=== PATIENT | female | born 1965 | race Caucasian/White ===

== ENCOUNTER 2020-06-15 14:41 | Outpatient (CLI) | payer BC, SELFPAY ==
--- NOTE | ~2020-06-15 | MM_ITS ---
EXAMINATION: MM screening [facility] BI w mary HISTORY: Screening TECHNIQUE: Craniocaudal and mediolateral oblique 3-D tomosynthesis images were obtained and synthetic 2-D images were generated. CAD analysis was submitted and interpreted. COMPARISON: Comparison to multiple prior studies sequentially, with oldest reviewed study dated 09/2011. BREAST PARENCHYMAL COMPOSITION: There are scattered areas of fibroglandular density. FINDINGS: There is no evidence of suspicious mass, calcification, or architectural distortion to sugg est malignancy in either breast. There has been no suspicious interval change. IMPRESSION: 1. No mammographic evidence of malignancy. 2. Recommend routine screening mammography in one year. BI-RADS Category 1: Negative Reviewed, dictated and finalized at location A. NT SERVICE REPRESENTATIVE
== END 2020-06-15 14:42 | disposition home or self-care (01) ==
LOC: ANHIMG 14:47
PROVIDERS: PCP Internal Medicine; Visit Provider Obstetrics & Gynecology
DX: Z12.31 Encounter for screening mammogram for malignant neoplasm of breast (principal)
CPT/HCPCS: 77063; 77067

== ENCOUNTER 2021-12-28 14:00 | Outpatient (CLI) | payer BC, SELFPAY ==
--- NOTE | ~2021-12-28 | MM_ITS ---
EXAMINATION: MM screening [facility] BI w mary HISTORY: Screening mammogram TECHNIQUE: Craniocaudal and mediolateral oblique 3-D tomosynthesis images were obtained and synthetic 2-D images were generated. CAD analysis was submitted and interpreted. COMPARISON: 06/15/2020, 10/02/2018, 02/21/2017, 02/14/2017 BREAST PARENCHYMAL COMPOSITION: There are scattered areas of fibroglandular density. FINDINGS: There is no suspicious mass, calcification, or architectural distortion to suggest malignan cy in either breast. There has been no suspicious interval change. IMPRESSION: 1. No mammographic evidence of malignancy. 2. Recommend routine screening mammography in one year. BI-RADS Category 1: Negative Reviewed, dictated and finalized at location A.
== END 2021-12-28 14:01 | disposition home or self-care (01) ==
LOC: ANHIMG 14:03
PROVIDERS: PCP Family Medicine Sports Medicine; Visit Provider Obstetrics & Gynecology
DX: Z12.31 Encounter for screening mammogram for malignant neoplasm of breast (principal)
CPT/HCPCS: 77063; 77067

== ENCOUNTER 2022-04-24 15:42 | Outpatient (CLI) | payer BC, SELFPAY ==
--- NOTE | ~2022-04-24 | US_ITS ---
EXAMINATION: US venous doppler LE RT DATE: 04/24/2022 16:16 INDICATION: Right lower limb pain TECHNIQUE: Grayscale ultrasound images without and with compression and Doppler ultrasound images of the right lower extremity veins were obtained. COMPARISON: None. FINDINGS: The visualized portions of right common femoral vein, profunda (deep) femoral vein, femoral vein, pop liteal vein, peroneal trunk, posterior tibial veins, peroneal veins, gastrocnemius vein and greater s aphenous vein outflow are patent. IMPRESSION: 1. No deep venous thrombosis in the right lower limb. Reviewed, dictated and finalized at location A. UCT/DEVICE TECHNOLOGIST
== END 2022-04-24 15:43 | disposition home or self-care (01) ==
LOC: ANHIMG 15:43
PROVIDERS: PCP Family Medicine Sports Medicine; Visit Provider Orthopaedic Surgery
DX: M79.661 Pain in right lower leg (principal)
CPT/HCPCS: 93971

== ENCOUNTER 2022-10-16 04:08 | Emergency (ER) | payer BC, SELFPAY ==
--- NOTE | ~2022-10-16 | XR_ITS ---
EXAMINATION: XR lumbar spine 2-3V DATE: 10/16/2022 04:47 INDICATION: Sciatica. TECHNIQUE: 3 views of lumbar spine were obtained. COMPARISON: None. FINDINGS: There is 6 degrees levocurvature of lumbar spine. There is 3 mm anterolisthesis of L4 on L5 . Vertebral body heights are normal. There is mildly decreased disc height at L3-L4. There is multile spencer facet joint osteoarthritis, severe in lower lumbar spine. IMPRESSION: 1. Mild lumbar spondylosis. Reviewed, dictated and finalized at location A. IMPRESSION: 1. Mild lumbar spondylosis.
[2022-10-16 04:11] VITALS: BP 179/105; PULSE 83; RESP 14; O2SAT 96
--- NOTE | 2022-10-16 05:21 | ED.GENADULT ---
HPI - General Adult General Chief complaint: Extremity Problem,Nontraumatic Stated complaint: back and leg pain Time Seen by Provider: 10/16/22 04:22 History of Present Illness HPI narrative: Patient is a 57-year-old female who presents ER with low back pain. Ongoing for 4 days. Initially low back radiating down both legs. It is now just radiating down her right side. No numbness or tingling in the leg. No saddle anesthesia or difficulty with urination/defecation. Symptoms are worse with bending and walking. No known traumatic injury to the back. Denies fevers or chills or sweats. No focal weakness. Has tried some Aleve without improvement. Patient reports she is scheduled to have a knee replacement in the next month. She sees Dr. Moya. She reports due to her knee discomfort she has had slight change in her gait which may be affecting her comfort. Related Data Home Medications Medication Instructions Recorded Confirmed losartan 50 mg tablet 50 mg PO DAILY 04/24/22 08/06/22 Allergies Allergy/AdvReac Type Severity Reaction Status Date / Time azithromycin Allergy Intermediate Vomiting Verified 10/16/22 04:26 morphine Allergy Mild Hives Verified 10/16/22 04:26 hydrocodone [From Vicodin] AdvReac Intermediate Vomiting Verified 10/16/22 04:26 methylprednisolone AdvReac Intermediate Vomiting Verified 10/16/22 04:26 [From Medrol] oxycodone AdvReac Intermediate Vomiting Verified 10/16/22 04:26 tramadol AdvReac Intermediate Headache Verified 10/16/22 04:26 Review of Systems Review of Systems: All systems reviewed & are unremarkable except as noted in HPI and below Constitutional: Constitutional: Denies chills, Denies fatigue and Denies fever(s) Genitourinary: Genitourinary: Denies nocturia, Denies dysuria and Denies urinary incontinence Musculoskeletal: Musculoskeletal: Reports back pain, Denies myalgias, Denies arthralgias and Denies joint swelling Integumentary/Breasts: Skin/Breast: Denies erythema and Denies rash Neurologic: Denies headache(s), Denies focal weakness and Denies numbness PMFSH Past Medical History Medical History Chronic headaches Degenerative arthritis of knee, bilateral History of endometrial biopsy (11/12/01) hscope EMB--benign Hypertension Migraines Screening mammogram, encounter for Surgical History Surgical History History of foot surgery (~2014) right foot History of hand surgery finger History of knee surgery 07/05/2014 partial meniscectomy--arthroscopy 2016 History of laparoscopy multiple lscopes for endometriosis History of right knee surgery (~10/10/10) History of surgery on wrist (~2014) History of total abdominal hysterectomy and bilateral salpingo-oophorectomy (02/04/02) adhesiolysis--leiomyomata, endometriosis, bicornuate uterus Family History Family History Other Adopted person Social History Social History Smoking status: Never smoker Alcohol intake: never Substance use: never Substance use type: does not use Living arrangements: with family Additional living arrangements comments: Occupation/Education: occupation 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 HEAD: Normocephalic, atraumatic. ENT: Mucous membranes moist EXTREMITIES: Normal range of motion. No edema. Gross sensation intact in lower extremities. Back: No reproducible midline tenderness to T/L-spine. There is tenderness to the SI region bilaterally right greater than left. Positive straight leg raise on the right
[2022-10-16] MEDS: KETOROLAC (*BKC) 60 MG/2 ML VIAL IM (05:29)
[2022-10-16] MEDS: CYCLOBENZAPRINE HCL 10 MG TABLET PO (05:29)
[2022-10-16 06:32] VITALS: BP 156/94; PULSE 78; RESP 15; O2SAT 100
== END 2022-10-16 06:34 | disposition home or self-care (01) ==
PROVIDERS: Emergency Provider Emergency Medicine; PCP Family Medicine Sports Medicine
DX: M54.42 Lumbago with sciatica, left side (principal); M54.41 Lumbago with sciatica, right side; I10 Essential (primary) hypertension; M17.0 Bilateral primary osteoarthritis of knee; M47.816 Spondylosis without myelopathy or radiculopathy, lumbar region
CPT/HCPCS: 72100; 96372; 99283; A9270; J1885

== ENCOUNTER 2022-10-23 08:38 | Outpatient (CLI) | payer BC, SELFPAY ==
--- NOTE | 2022-10-23 09:34 | ECG_ITS ---
Measurements Intervals Frost Rate: 72 P: 57 AK: 164 QRS: 1 QRSD: 72 T: -7 QT: 355 QTc: 389 Interpretive Statements SINUS RHYTHM LOW QRS VOLTAGE IN PRECORDIAL LEADS [QRS DEFLECTION < 1.0 mV IN CHEST LEADS] POSSIBLE ANTERIOR MYOCARDIAL INFARCTION [30 ms Q WAVE IN V3/V4, OR R < 0.2 mV IN V4], OF INDETERMINATE AGE NONSPECIFIC ST AND T WAVE ABNORMALITIES ABNORMAL ECG WARNING: DATA QUALITY MAY AFFECT INTERPRETATION NO PREVIOUS ECG AVAILABLE FOR COMPARISON Electronically Signed On 10-23-2022 10:22:34 CDT by Reg Galan M.D.
[2022-10-23 10:43] LABS: Albumin Level 4.4 g/dL (3.5-5.1); Estimated Glomerular Filt Rate > 60; Glucose 87 mg/dL (65-110)
[2022-10-23 10:44] LABS: Basophils Absolute Auto 0.1 K/mm3 (0.0-0.1); Basophils Percent Auto 0.8 % (0.2-1.2); Eosinophils Absolute Auto 0.4 K/mm3 (0-0.3); Eosinophils Percent Auto 3.9 % (0-4.4); Hematocrit 43.1 % (37.0-47.0); Hemoglobin 13.9 g/dL (12.0-15.0); Immature Granulocyte Absolute 0.34 K/mm3 (0.00-0.031); Immature Granulocyte Percent A 3.8 % (0-0.5); Lymphocytes Absolute Auto 1.12 K/mm3 (0.9-3.2); Lymphocytes Percent Auto 12.6 % (18.3-44.2); Mean Corpuscular HGB Conc 32.3 g/dl (32-36); Mean Corpuscular Hemoglobin 30.8 pg (26-34); Mean Corpuscular Volume 95.4 fl (80-100); Mean Platelet Volume 9.8 fl (7.4-10.4); Monocytes Absolute Auto 0.8 K/mm3 (0.1-0.6); Monocytes Percent Auto 9.3 % (2.6-8.5); Neutrophils Absolute Auto 6.2 K/mm3 (1.3-6.7); Neutrophils Percent Auto 69.6 % (45.5-73.1); Platelet Count Result 333 k/mm3 (150-375); Red Blood Count 4.52 M/mm3 (4.2-5.4); Red Cell Distribution Width 13.1 % (11.5-14.5); White Blood Count 8.9 K/mm3 (4.5-10.0)
[2022-10-23 10:46] LABS: Urine Cotinine NEGATIVE
[2022-10-23 11:14] LABS: Hemoglobin A1C 5.6 % (<5.7)
== END 2022-10-23 08:39 | disposition home or self-care (01) ==
LOC: ANHSURGERY 08:43
PROVIDERS: PCP Family Medicine Sports Medicine; Visit Provider Orthopaedic Surgery
DX: Z01.818 Encounter for other preprocedural examination (principal); M17.11 Unilateral primary osteoarthritis, right knee; R94.31 Abnormal electrocardiogram [ECG] [EKG]
CPT/HCPCS: 80307; 82040; 82565; 82947; 83036; 85025; 87081; 93005

== ENCOUNTER 2022-10-24 15:16 | Outpatient (CLI) | payer BC, SELFPAY ==
--- NOTE | ~2022-10-24 | MR_ITS ---
EXAMINATION: MR lumbar spine wo con DATE: 10/24/2022 16:11 INDICATION: Dorsalgia, unspecified. TECHNIQUE: Magnetic resonance imaging (MRI) of the lumbar spine was performed without intravenous con trast. Sequences included sagittal T2-weighted FSE, sagittal T2-weighted FS FSE, sagittal T1-weighted FSE, and axial T2-weighted FSE. COMPARISON: Lumbar spine radiographs 10/16/2022 FINDINGS: There is 3 degrees levocurvature of lumbar spine. Vertebral body heights are normal. There is 3 mm anterolisthesis of L4 on L5. There is mildly decreased disc height at L3-L4 and L4-L5. The di stal spinal cord signal intensity is normal. The conus medullaris is at L1. The following disc levels are specifically discussed: L1-L2: The disc does not extend beyond the endplate margin. There is mild bilateral facet joint osteo arthritis. There is no neural foraminal stenosis. There is no central canal stenosis. L2-L3: The disc is bulging. There is severe bilateral facet joint osteoarthritis. There is mild bilat eral neural foraminal stenosis. There is mild central canal stenosis. L3-L4: The disc is bulging with superimposed right subarticular zone extrusion with superior extensio n 8 mm. There is severe bilateral facet joint osteoarthritis. There is moderate right and mild left n eural foraminal stenosis. There is mild central canal stenosis. L4-L5: The disc is bulging and has an annular fissure. There is severe bilateral facet joint osteoart hritis. There is mild right and moderate left neural foraminal stenosis. There is mild central canal stenosis. There is severe stenosis of left lateral recess. L5-S1: There is a left foraminal protrusion. There is severe bilateral facet joint osteoarthritis. Th ere is mild bilateral neural foraminal stenosis. There is no central canal stenosis. IMPRESSION: 1. Moderate lumbar spondylosis. Reviewed, dictated and finalized at location A.
== END 2022-10-24 15:17 ==
LOC: GOSHIMG 15:17
PROVIDERS: PCP Family Medicine Sports Medicine; Visit Provider Orthopaedic Surgery
DX: M47.896 Other spondylosis, lumbar region (principal)
CPT/HCPCS: 72148

== ENCOUNTER 2022-12-09 03:03 | Day surgery (SDC) | payer BC, SELFPAY ==
--- NOTE | 2022-10-23 07:34 | PC.NURSE ---
PRE-OP INSTRUCTIONS, PLEASE READ CAREFULLY Report to the Outpatient Waiting Room, entrance under the green pavilion located off [facility], at time _0600_ on date _11/11/22_. Planned Procedure Time: _0730_. PACK A SMALL OVERNIGHT BAG AND LEAVE IN THE CAR ALONG WITH YOUR WALKER Time changes happen often and if your time is changed the preop area will call you the afternoon before. - You and your visitor will be asked to self-screen and do not enter if you have any COVID symptoms. - A mask is optional within the hospital at this time. -VISITING HOURS 8AM-8PM Patients may have clear liquids (water, carbonated beverages, clear teas, apple juice) until 3 hours prior to surgery (0430 AM) with a maximum of 20 ounces. - No food from midnight until time of surgery Take the following medications with a SIP of water the morning of surgery: _TYLENOL &/OR CYCLOBENZAPRINE IF NEEDED_ DO NOT STOP ANY OF YOUR OTHER PRESCRIPTION MEDICATIONS PRIOR TO SURGERY ?EXCEPT THE FOLLOWING Medications to discontinue - _GOODY'S PER DR. GONSALES'S INSTRUCTIONS_, Date to take last dose Please no make-up, nail romanian, hairspray, perfume, deodorant, or body powder the day of surgery. No jewelry (including any body piercings) or valuables the day of surgery, leave them at home. Please take a shower or bath the night before, or the morning of, surgery with an antibacterial soap. Wear comfortable, loose fitting clothing. - Jewelry must be removed prior to entering the operating room. Rings and piercings that are not removed may be cut off. - The hospital will not accept responsibility for valuables. - Please leave all valuables, including medications, at home the day of surgery. If you are going home after surgery, a licensed straddle truck driver must drive you home. - NO public transportation without another adult if you receive anesthesia. - We recommend that an adult stay with you for 24 hours following discharge. - We also recommend that you do not drive, make important decision, drink alcoholic beverages, or take any drugs that were not prescribed by your health care provider for at least 24 hours after your discharge time. Follow any additional instructions given to you from DR. GONSALES. If you or anyone in your household have experienced Covid symptoms in the past week, please notify your surgeon or the nurse liaison at the phone number below for possible testing. Instructions given to _PATIENT & SPOUSE (MARI)_and asked if any additional questions and then verbalized understanding. Patient advised to call surgeon office or pre surgery nurse liaison [phone] if any additional questions.
[2022-10-23 09:02] VITALS: BP 124/78; PULSE 80; RESP 18; TEMP 36.6; O2SAT 100; BMI 31.9
[2022-11-27 14:39] VITALS: BMI 31.8
--- NOTE | 2022-11-27 14:47 | PC.NURSE ---
Report to the Outpatient Waiting Room, entrance under the green pavilion located off [facility], at time _0600_ on date _12/09/22__. Planned Procedure Time: ___729 . PACK A SMALL OVERNIGHT BAG AND LEAVE IN THE CAR ALONG WITH YOUR WALKER Time changes happen often and if your time is changed the preop area will call you the afternoon before. - You and your visitor will be asked to self-screen and do not enter if you have any COVID symptoms. - A mask is optional within the hospital at this time. Patients may have clear liquids (water, carbonated beverages, clear teas, apple juice) until 3 hours prior to surgery (0430 AM) with a maximum of 20 ounces. - No food from midnight until time of surgery - Infants may have breast milk until 4 hours before surgery, infant formula 6 hours prior to surgery. - Children will be allowed to drink immediately following surgery. If applicable, please bring a bottle or sippy cup to assist with drinking. Juice, water, soda, and popsicles are readily available. For infants on formula, please bring formula the day of surgery. Pacifiers are allowed. Take the following medications with a SIP of water the morning of surgery: _TYLENOL IF NEEDED_ DO NOT STOP ANY OF YOUR OTHER PRESCRIPTION MEDICATIONS PRIOR TO SURGERY ?EXCEPT THE FOLLOWING Medications to discontinue - _FLOYDY'S PER DR. GONSALES'S INSTRUCTIONS_, Date to take last dose Please no make-up, nail yoruba, hairspray, perfume, deodorant, or body powder the day of surgery. No jewelry (including any body piercings) or valuables the day of surgery, leave them at home. Please take a shower or bath the night before, or the morning of, surgery with an antibacterial soap. Wear comfortable, loose fitting clothing. Children are encouraged to wear pajamas. - Jewelry must be removed prior to entering the operating room. Rings and piercings that are not removed may be cut off. - The hospital will not accept responsibility for valuables. - Please leave all valuables, including medications, at home the day of surgery. If you are going home after surgery, a licensed feedmobile driver must drive you home. - NO public transportation without another adult if you receive anesthesia. - We recommend that an adult stay with you for 24 hours following discharge. - We also recommend that you do not drive, make important decision, drink alcoholic beverages, or take any drugs that were not prescribed by your health care provider for at least 24 hours after your discharge time. For Pediatric surgeries, we recommend two adults accompany the child home. Follow any additional instructions given to you from your surgeon. If you or anyone in your household have experienced Covid symptoms in the past week, please notify your surgeon or the nurse liaison at the phone number below for possible testing. Telephone instructions given to __PATIENT___and asked if any additional questions and then verbalized understanding. Patient advised to call surgeon office or pre surgery nurse liaison [phone] if any additional questions.
--- NOTE | 2022-12-06 18:36 | WPDANESEPP ---
Anes - Eval Pre Procedure Procedure: Operation Date: 12/09/22 07:30 Proposed Procedures p Right Total Knee Arthroplasty - Serge Moya MD Date/Time: 12/06/22 18:36 Pre Op Diagnosis: OA right knee Patient Data Age: 57 Gender: F Height: 1.57 m Weight: 79 kg Last Vital Signs Temp 36.6 C 10/23/22 09:02 Pulse 80 10/23/22 09:02 Resp 18 10/23/22 09:02 BP 124/78 10/23/22 09:02 Pulse Ox 100 10/23/22 09:02 O2 Del Method Room Air 10/23/22 09:02 Allergies Allergy/AdvReac Type Severity Reaction Status Date / Time azithromycin Allergy Intermediate Vomiting Verified 12/03/22 13:32 morphine Allergy Mild Hives Verified 12/03/22 13:32 hydrocodone [From Vicodin] AdvReac Intermediate Vomiting Verified 12/03/22 13:32 methylprednisolone AdvReac Intermediate Vomiting Verified 12/03/22 13:32 [From Medrol] oxycodone AdvReac Intermediate Vomiting Verified 12/03/22 13:32 tramadol AdvReac Intermediate Headache Verified 12/03/22 13:32 Home Medications Medication Instructions Recorded Confirmed Type losartan 50 mg tablet 50 mg PO DAILY 04/24/22 12/03/22 History MHA-vpmebcysqybck-cjmqnmau-potassium 1 packet DAILY PRN Migraine 10/23/22 12/03/22 History 520 mg-260 mg-32.5 mg oral packet Headache acetaminophen 650 mg 1,300 mg PO TID PRN Pain 10/23/22 12/03/22 History tablet,extended release rivaroxaban 10 mg tablet (Xarelto) 10 mg PO DAILY RI prophylaxis s/p 12/03/22 12/03/22 Rx joint replacement surgery 14 days #14 tabs Patient hx anesthesia problems: none Family hx anesthesia problems: none Results Review: All pre-operative results and documents have been reviewed as part of the pre-operative evaluation. [facility] Past Medical History Medical History (Updated 12/06/22 @ 18:37 by Khushboo Torrez CRNA) Back pain Chronic headaches Degenerative arthritis of knee, bilateral Endometriosis History of endometrial biopsy (11/12/01) hscope EMB--benign Hypertension Migraines Obesity (BMI 30-39.9) Osteoarthritis Screening mammogram, encounter for Surgical History Surgical History History of foot surgery (~2014) right foot History of hand surgery finger History of knee surgery 07/05/2014 partial meniscectomy--arthroscopy 2016 History of laparoscopy multiple lscopes for endometriosis History of right knee surgery (~10/10/10) History of surgery on wrist (~2014) History of total abdominal hysterectomy and bilateral salpingo-oophorectomy (02/04/02) adhesiolysis--leiomyomata, endometriosis, bicornuate uterus Family History Family History Other Adopted person Social History Social History Smoking status: Never smoker Second hand tobacco smoke exposure: No Additional smoking assessment comments: PT DENIES ALL FORMS OF TOBACCO USE Alcohol intake: never Substance use: never Substance use type: does not use Lack of Transportation: No Lack of Food: Never True Current Housing: I Have Housing Concerned About Future Housing: No Difficulty Paying Gas/Electric Bills: No Difficulty Paying for Meds: No Currently Unemployed: No Education: High School Diploma/GED Difficulty w/ Childcare or Family Care: No Living arrangements: with family Additional living arrangements comments: Occupation/Education: occupation 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
[2022-12-09] VITALS (18 sets, daily range): BP systolic 116–179; BP diastolic 70–99; PULSE 68–116; RESP 10–18; TEMP 36.2–36.9; O2SAT 91–100
--- NOTE | ~2022-12-09 | XR_ITS ---
EXAMINATION: [id number] DATE: 12/09/2022 10:26 CDT INDICATION: Right knee arthroplasty TECHNIQUE: 2 views right knee FINDINGS: There is a right total knee arthroplasty in expected position. Subcutaneous gas with fluid and air in the joint are consistent with recent surgery. No evidence of periprosthetic fracture. IMPRESSION: 1. Recent right total knee arthroplasty. Reviewed, dictated and finalized at location A.
[2022-12-09] MEDS: ACETAMINOPHEN 500 MG TABLET 1000 MG PO ×3 (06:25→17:36)
[2022-12-09] MEDS: LACTATED RINGERS 1,000 ML 30 ML IV CONT ×2 (06:30→09:56)
[2022-12-09] MEDS: TRANEXAMIC ACID 1,000MG/ISO100 1,000 MG/100 ML BAG 200 MG IVPB (06:35)
--- NOTE | 2022-12-09 07:21 | WPDANESEPPF ---
Anes - Initial Pre Proc Eval Procedure: Operation Date: 12/09/22 07:30 Proposed Procedures p Right Total Knee Arthroplasty - Serge Moya MD Date/Time: 12/09/22 07:21 Surgeon: Serge Moya MD Pre Op Diagnosis: OA right knee Patient Data Age: 57 Gender: F Height: 1.57 m Weight: 79.8 kg Last Vital Signs Temp 97.8 F 12/09/22 06:14 Pulse 83 12/09/22 06:14 Resp 18 12/09/22 06:14 BP 150/92 H 12/09/22 06:14 Pulse Ox 100 12/09/22 06:14 O2 Del Method Room Air 12/09/22 06:14 Allergies Allergy/AdvReac Type Severity Reaction Status Date / Time morphine Allergy Mild Hives Verified 12/09/22 06:42 azithromycin AdvReac Intermediate Vomiting Verified 12/09/22 07:20 hydrocodone [From Vicodin] AdvReac Intermediate Vomiting Verified 12/09/22 06:42 methylprednisolone AdvReac Intermediate Vomiting Verified 12/09/22 06:42 [From Medrol] oxycodone AdvReac Intermediate Vomiting Verified 12/09/22 06:42 tramadol AdvReac Intermediate Headache Verified 12/09/22 06:42 Home Medications Medication Instructions Recorded Confirmed Type losartan 50 mg tablet 50 mg PO DAILY 04/24/22 12/09/22 History NEV-yekzijilqqjbn-sutzjgat-potassium 1 packet DAILY PRN Migraine 10/23/22 12/09/22 History 520 mg-260 mg-32.5 mg oral packet Headache acetaminophen 650 mg 1,300 mg PO TID PRN Pain 10/23/22 12/03/22 History tablet,extended release rivaroxaban 10 mg tablet (Xarelto) 10 mg PO DAILY MT prophylaxis s/p 12/03/22 12/03/22 Rx joint replacement surgery 14 days #14 tabs Patient hx anesthesia problems: none Family hx anesthesia problems: none Results Review: All pre-operative results and documents have been reviewed as part of the pre-operative evaluation. [facility] Past Medical History Medical History (Updated 12/06/22 @ 18:37 by Khushboo Torrez CRNA) Back pain Chronic headaches Degenerative arthritis of knee, bilateral Endometriosis History of endometrial biopsy (11/12/01) hscope EMB--benign Hypertension Migraines Obesity (BMI 30-39.9) Osteoarthritis Screening mammogram, encounter for Surgical History Surgical History History of foot surgery (~2014) right foot History of hand surgery finger History of knee surgery 07/05/2014 partial meniscectomy--arthroscopy 2016 History of laparoscopy multiple lscopes for endometriosis History of right knee surgery (~10/10/10) History of surgery on wrist (~2014) History of total abdominal hysterectomy and bilateral salpingo-oophorectomy (02/04/02) adhesiolysis--leiomyomata, endometriosis, bicornuate uterus Family History Family History Other Adopted person Social History Social History Smoking status: Never smoker Second hand tobacco smoke exposure: No Additional smoking assessment comments: PT DENIES ALL FORMS OF TOBACCO USE Alcohol intake: never Substance use: never Substance use type: does not use Lack of Transportation: No Lack of Food: Never True Current Housing: I Have Housing Concerned About Future Housing: No Difficulty Paying Gas/Electric Bills: No Difficulty Paying for Meds: No Currently Unemployed: No Education: High School Diploma/GED Difficulty w/ Childcare or Family Care: No Living arrangements: with family Additional living arrangements comments: Occupation/Education: occupation 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
--- NOTE | 2022-12-09 07:26 | WPDHPUPDATE1 ---
History and Physical Update Update Date/Time: 12/09/22 07:26 History and Physical has been reviewed, including an updated exam of the patient. There are NO changes in the patient's condition. Risks, benefits, and alternatives have been discussed and questions answered. Patient agrees to proceed with procedure.
[2022-12-09] MEDS: ceFAZolin 2 GM/D5W 50 ML 2 GM/50 ML BAG IVPB ×2 (07:34→15:17)
[2022-12-09] MEDS: SCOPOLAMINE 1.5 MG PATCH TRANSDERM (09:56)
--- NOTE | 2022-12-09 09:58 | W.PM.PROC2 ---
Procedure Note - Detailed Date of Procedure 12/09/22 Pre-op Diagnosis OA right knee Post-op Diagnosis Same Procedure Performed right total knee replacement Surgeon Serge Moya MD [employer] Resource Specialist Frantz Rendon Anesthesia General Description of Procedure The patient was identified and proper site identified. After general anesthetic induction and intubation a nonsterile tourniquet was placed high on the right thigh. The right lower extremity was prepped and draped in the usual sterile fashion. The extremity was exsanguinated and with the knee flexed tourniquet was inflated to 300 mmHg remaining up for approximately 61 minutes. An anterior midline incision was made and a modified medial parapatellar approach was used. Infra and suprapatellar fat pads were excised. Patella was resected leaving 15 mm thickness and prepared for the size 29 round three peg component. Using the intramedullary guide the distal femur was cut in the proper orientation for the size six femoral component. Using the extramedullary guide the tibia was cut perpendicular to the long axis protecting collateral ligaments and popliteal structures. It was sized to a six. Flexion and extension gaps were balanced. Trial reduction was undertaken and the weight-bearing line was noted to passed through the center of the joint. Proximal tibia was drilled and punched in the proper orientation for the real component. Trial components were removed. The bone surfaces were washed with pulsatile lavage and dried. The real components were cemented simultaneously. The knee was held in extension and the patella held clamped until the cement had cured. Excess cement was removed from the joint. After trialing it was determined that the 12 mm insert gave full range of motion from 0-120 degrees of flexion and the patella tracked in the femoral groove with no lift-off. After final lavage the joint the real size 12 insert was placed and secured. A Betadine and saline wash was placed into the wound and allowed to sit for approximately 3 minutes and then evacuated. Periarticular tissues were infiltrated with 60 cc of the arthroplasty solution. Surgicel powder was applied into the wound during the closure. The extensor mechanism was repaired with #2 Vicryl suture and 0 looped PDS suture. Subcu was reapproximated with 3-0 Monocryl and 2-0 Quill for the skin. A sterile dressing was applied. She tolerated the procedure well, was awakened and extubated, transferred to the bed and was taken to recovery area in stable condition. There were no known intraoperative complications. Perioperative antibiotics were administered. Estimated Blood Loss 100 Tourniquet Time 61 Drains No Pathology None sent Complications No immediate complications Condition Stable Disposition PACU [facility] Billing Surgery - Charge Forward: Surgery Billing ([id number])
[2022-12-09] MEDS: fentaNYL CITRATE INJ (*CRX) 100 MCG/2 ML VIAL 25 MCG IV PUSH ×8 (10:14→11:33)
--- NOTE | 2022-12-09 10:26 | WPDANESPNB ---
Anes - Peripheral Nerve Block Date/Time: 12/09/22 10:26 I have discussed with the patient/family/POA the placement of a peripheral nerve block for post-operative pain management, including associated risks, benefits, complications, and side effects. Alternative methods of post-operative analgesia were detailed. Questions were solicited and answers provided to the satisfaction of the patient/family/POA. Time-Out: A pre-procedural Time-Out was completed immediately before starting the procedure and confirmed: Patient Identification, Site, Procedure, Patient Position and the Availability of Requisite Equipment. Clinical Indications: Acute post-operative pain management requested by the operative surgeon. Nerve Block Insertion Note Patient position: supine Skin prep: chlorhexidine Needle: 22 gauge, stimulating, insulated echogenic needle. Technique comment: done post op in recovery Injectate: bupivacaine 0.5% with epi 5 mcg/ml (30ml no epi) and dexamethasone (mg) (4) Observations: tolerated well Complications: none Procedure start time:: 1014 Procedure end time:: 1020
--- NOTE | 2022-12-09 12:00 | ADMGEN ---
This patient, Jessica Dwyer, was admitted to 3 [facility] Surg Room 327-01. Patient/family oriented to hospital policies and general routines including ID bracelet, bed and alarms, visiting hours, pain management, procedures, bathroom and other care routines, personal items, smoking policy, room service/diet, and visiting hours. Information on how to activate the Rapid Response Team has been discussed. Patient/Family are encouraged to report perceived risks to care and to ask questions if they do not understand what they are told or what they should do.
[2022-12-09] MEDS: KETOROLAC 15 MG/ML VIAL (*BKC) IV PUSH ×2 (12:26→17:34)
[2022-12-09] MEDS: TAPENTADOL HCL (*CRX) 50 MG TABLET PO ×3 (12:45→21:06)
--- NOTE | 2022-12-09 15:11 | PCPTNOTE ---
On 12/09/22, the student, MIKE Garcia, provided care and completed [facility] documentation on this patient. I have reviewed the student's documentation and agree with the findings.
[2022-12-09] MEDS: SENNA/DOCUSATE SODIUM TABLET 2 TAB PO (17:36)
[2022-12-10 00:16] VITALS: BP 144/81; PULSE 77; RESP 14; TEMP 36.7; O2SAT 97
[2022-12-10] MEDS: ceFAZolin 2 GM/D5W 50 ML 2 GM/50 ML BAG IVPB ×2 (00:17→06:21)
[2022-12-10] MEDS: ACETAMINOPHEN 500 MG TABLET 1000 MG PO ×2 (00:17→05:45)
[2022-12-10] MEDS: KETOROLAC 15 MG/ML VIAL (*BKC) IV PUSH ×2 (00:17→05:45)
[2022-12-10 05:25] VITALS: BP 115/67; PULSE 71; RESP 16; TEMP 36.2; O2SAT 98
[2022-12-10] MEDS: TAPENTADOL HCL (*CRX) 50 MG TABLET PO ×2 (05:44→08:34)
[2022-12-10] MEDS: polyethylene glycoL 3350 17 GM POWD.PACK PO (08:33)
[2022-12-10] MEDS: SENNA/DOCUSATE SODIUM TABLET 2 TAB PO (08:33)
[2022-12-10] MEDS: RIVAROXABAN 10 MG TABLET PO (08:34)
--- NOTE | 2022-12-10 08:36 | WPDANESPN ---
Anes - Prog Note Post-Op Date/Time: 12/10/22 08:36 Cardiovascular status: normal Respiratory status: normal Airway patency: baseline Mental status: baseline Post-Op hydration status: normal Vital Signs: Last Vital Signs Temp 36.2 C L 12/10/22 05:25 Pulse 71 12/10/22 05:25 Resp 16 12/10/22 05:25 BP 115/67 12/10/22 05:25 Pulse Ox 98 12/10/22 05:25 O2 Del Method Room Air 12/09/22 20:00 O2 Flow Rate 2 12/09/22 11:50 Pain Score (VAS): 0 I/O: Intake & Output 12/09/22 12/10/22 12/10/22 23:59 07:59 15:59 Intake Total 730 100 Balance 730 100 12/09/22 06:24 Blood Type O Positive Antibody Screen Negative Post-procedural complaints: none Patient Feedback: Patient satisfied with anesthetic care.
--- NOTE | 2022-12-10 09:07 | PM.DS ---
DS: Admitting Diagnosis Discharge Date 12/10/2022 Admitting Diagnosis Right knee osteoarthritis DS: Discharge Diagnosis Discharge Diagnosis (1) Status post total right knee replacement: Code(s): Z96.651 - Presence of right artificial knee joint Status: Acute Plan 57-year-old female postop day 1 after right total knee arthroplasty. Discharge instructions and wound care were discussed with her in detail. Range of motion during exam this morning is reasonable with recent surgical procedure. Will plan to use Nucynta for pain medication due to her allergies to previous pain meds. Surgical dressing is clean and dry this morning. She had no further questions. Plan follow-up in 2 weeks for wound and range of motion check. She is to call our office any further questions or concerns prior to that scheduled follow-up. DS: Summary Hospital Course Reason for hospitalization: Observation after outpatient procedure Hospital Course: 57-year-old female admitted for observation after right total knee arthroplasty. Overall doing well during exam this morning. She did have an issue yesterday evening in which she forgot the date and time and thought she had missed her surgery. This could be a reaction to the anesthesia or her pain medication. She does have allergies to previous pain medications so we will continue to try Nucynta while she is at home. She will plan for follow-up in our office in 2 weeks for recheck. Status at Discharge Functional status at discharge: uses cane/walker Overall status at discharge: patient is progressing back to baseline Time Spent with Patient Time attestation: Total time spent providing and/or coordinating discharge services: Time spent: Less than 30 minutes Exam Const: General: cooperative, healthy appearing, no acute distress and average body habitus Nutritional Appearance: average body habitus Orientation/consciousness: patient oriented x3 Limitations: no limitations HENMT: Head: normocephalic and atraumatic Ears: hearing grossly normal bilaterally Mouth: Yes moist mucous membranes Teeth and gingiva: fair dentition Eyes: General: appearance normal, both eyes and all related structures Alignment and Position: alignment normal Pupils: Equal, round and reactive pupils present Neck: Neck: normal visual inspection Chest: Chest palpation & inspection: normal inspection of the chest Resp: Effort & Inspection: normal respiratory effort and able to speak in complete sentences Cardio: Jugular venous distension: no JVD Peripheral pulses: Peripheral pulses 2+ throughout GI: Inspection: normal to inspection and non-distended GI Palp: Yes Soft to palpation and No Tenderness to palpation present (GI) Neuro: General: patient oriented x3 Cranial nerves: Yes Equal, round and reactive pupils present Speech: normal speech Extrem: Other: Exam of the right knee demonstrates a clean and dry surgical dressing. Active and passive range of motion is consistent with the recent surgical procedure. Calves negative. Neurovascular status right lower extremity is intact. Psych: Appearance: grossly normal Mental Status: mental status grossly normal Discharge Plan Discharge Patient Disposition: Home, Self-Care Discharge Instructions: 3 times daily for 20 minutes each time, reclining in bed with ice packs over the incision and a pillow underneath the calf of the affected leg, not under the knee. Your wound is glued so it is okay to remove the dressing, get into the shower and get the wound wet in two days. Be sure to read through all the information that came from a my office and the hospital. Most of the answers you will need can be found that material. Call the office with any questions that you cannot find answers to, or concerns you may have. After the Xarelto is completed, start taking one coated 325 mg aspirin daily and do this for four more weeks. Please call [facility] at [phone]
[2022-12-10 09:26] VITALS: BP 113/67; PULSE 79; RESP 16; TEMP 37.1; O2SAT 97
== END 2022-12-10 12:05 | disposition home or self-care (01) ==
LOC: ANHSURGERY 09:50 → ANH3MEDSUR 11:49
PROVIDERS: PCP Family Medicine Sports Medicine; Visit Provider Orthopaedic Surgery
PROC: (CPT 27447; principal; 2022-12-09 07:30)
DX: M17.11 Unilateral primary osteoarthritis, right knee (principal); G89.18 Other acute postprocedural pain; I10 Essential (primary) hypertension; E66.9 Obesity, unspecified; Z68.32 Body mass index [BMI] 32.0-32.9, adult
CPT/HCPCS: 27447; 64447; 36415; 73560; 80307; 82040; 82565; 82947; 83036; 85025; 86850; 86900; 86901; 87081; 93005; 97110; 97116; 97161; 97165; 97530; 97535; A9270; C1713; J0171; J0690; J1100; J1170; J1200; J1885; J2250; J2405; J2704; J2795; J3010; J7120

== ENCOUNTER 2023-01-23 15:00 | Outpatient (RCR) | payer BC, SELFPAY ==
--- NOTE | 2022-12-17 10:08 | OPREHPOC ---
Outpatient Therapy Plan of Care This is a Multidisciplinary Plan of Care that may contain components documented by all disciplines (PT, OT, and ST.) PT Problem 1 PT Problem #1 Knowledge Deficit PT Goal 1 Goal Independent with HEP Target Visit 16 PT Problem 2 PT Problem #2 Impaired Range of Motion PT Goal 1 Goal 0-120 degrees active range of motion R knee Target Visit 16 PT Problem 3 PT Problem #3 Impaired Strength PT Goal 1 Goal 5/5 R quads and hamstring strength Target Visit 16 PT Problem 4 PT Problem #4 Impaired Gait PT Goal 1 Goal ambulate without assistive device independently for community distances. Target Visit 16
--- NOTE | 2022-12-17 10:08 | PTOPEVAL1 ---
Assessment and note entered by Kalpesh Clemente, PT Evaluation Information Assessment Status Evaluation Diagnosis R TKA Onset 12/09/22 Subjective Information Patient comes in using a standard walker and no shoe on her RLE. Patient reports the swelling was very bad over the weekend, but is a lot better now. Patient unable to take many pain medications and has only been able to use Tylenol Arthritis 3 times a day. Patient has been having trouble lifting her RLE into bed and trouble doing her exercises secondary to swelling and pain. Patient reports she has been faithful with her icing and keeping it elevated. Patient lives with her and he has been helping with her exercises and functional mobility. Reported Pain Level Pain Score 1: Self Report Assessment PT Clinical Summary Mrs. Dwyer is a 57 year old female coming into the clinic with a diagnosis of L TKA. She has decreased strength and range of motion 0-20-73 degrees. Physical therapy will work with the patient on improving quad strength and R knee range of motion with strengthening and stretching, modalities and manual therapy as needed for pain control. Plan of Care Interventions Electrical Stimulation,Gait Training,Hot Pack/Cold Pack,Manual Therapy,Neuro Re-education,Patient/ Caregiver Education,Therapeutic Activities, Therapeutic Exercise,Ultrasound Other Interventions cupping, taping, IASTM PT Services Indicated Yes Treatment Frequency and 2x/wk for 16 visits Duration These treatments will address the objective and functional deficits as defined above. The patient will be advanced safely and appropriately in order for the patient to progress towards his/her prior level of function. Additional exercises will be introduced and as well as a comprehensive home exercise program upon discharge, if needed, ?to ensure carryover of functional gains achieved in the clinic. This treatment plan has been reviewed and agreement upon by the patient.
--- NOTE | 2022-12-19 14:42 | PTOPPROGNS ---
Assessment and note entered by Kalpesh Clemente, PT Evaluation Information Assessment Status Progress Diagnosis R TKA Onset 12/09/22 Subjective Information Patient comes in for second visit to physical therapy. Patient reports less swelling and bruising then before (physical therapist will agree a lot less bruising down the leg into the foot.) Patient is able to report doing more with her exercises as pain and swelling or better. Still unable to get a shoe on the R foot. Patient comes in with and using her standard walker. Assessment PT Clinical Summary Patient has come in for her second session of physical therapy. Improved range of motion to 80 degrees flexion and 7 degrees extension from 73 degrees flexion and 20 degrees extension when assessed on Friday. Of concern is the decreased quad strength not getting stronger. Hopeful as swelling continues to decrease the muscles will start kicking in. Plan of Care Interventions Electrical Stimulation,Gait Training,Hot Pack/Cold Pack,Manual Therapy,Neuro Re-education,Patient/ Caregiver Education,Therapeutic Activities, Therapeutic Exercise,Ultrasound Other Interventions cupping, taping, IASTM PT Services Indicated Yes Treatment Frequency and 2x/wk for 14 more visits. Duration These treatments will address the objective and functional deficits as defined above. The patient will be advanced safely and appropriately in order for the patient to progress towards his/her prior level of function. Additional exercises will be introduced and as well as a comprehensive home exercise program upon discharge, if needed, ?to ensure carryover of functional gains achieved in the clinic. This treatment plan has been reviewed and agreement upon by the patient.
--- NOTE | 2023-01-13 14:51 | OPREHPOC ---
Outpatient Therapy Plan of Care This is a Multidisciplinary Plan of Care that may contain components documented by all disciplines (PT, OT, and ST.) PT Problem 1 PT Problem #1 Knowledge Deficit PT Goal 1 Goal Independent with HEP Target Visit 16 PT Problem 2 PT Problem #2 Impaired Range of Motion PT Goal 1 Goal 0-120 degrees activie range of motion R knee Target Visit 16 Progress Partially Met Comment Still lacking terminal extension and functional flexion PT Problem 3 PT Problem #3 Impaired Strength PT Goal 1 Goal 5/5 R quads and hamstring strength Target Visit 16 Progress Partially Met Comment Significantly improved but still lacking functional strength for endurance and stair climbing PT Problem 4 PT Problem #4 Impaired Gait PT Goal 1 Goal ambulate without assistive device independently for community distances. Target Visit 16 Progress Partially Met Comment Using cane at work but not always in home as documented PT Goal 2 Goal Demonstrate ability to reciprocally climb stairs for home mobility Target Visit 16 Comment New Goal PT Problem 5 PT Problem #5 Edema PT Goal 1 Goal Demonstrate 1 cm+ reduction in joint line girth for indication of progressive soft tissue healing Target Visit 16
--- NOTE | 2023-01-13 14:52 | PTOPPROG ---
Assessment and note entered by Alfredo Narvaez, PT Evaluation Information Assessment Status Progress Diagnosis R Total knee arthroplasty Onset 12/09/22 Subjective Information Reports that she is overall about 75% better. She is still hurting after therapy but is noting improved mobility with each session. Has really been pushing herself at home and has returned to work. Using a cane 100% of the time at work and 25 % at home. Still feels that she is consistently swollen below her knee. Assessment PT Clinical Summary Patient has made excellent progress in knee strength and ROM. She is still showing significant deficits in terminal knee extension and functional flexion in addition to continued edema and altered gait pattern. She will continue to benefit from skilled therapy to address these deficits to maximize function as she is very active in work spending a lot of time on her feet and ambulating. Plan of Care Interventions Electrical Stimulation,Gait Training,Hot Pack/Cold Pack,Manual Therapy,Neuro Re-education,Patient/ Caregiver Education,Therapeutic Activities, Therapeutic Exercise,Ultrasound Other Interventions cupping, taping, IASTM PT Services Indicated Yes Treatment Frequency and 2x/wk for 14 more visits. Duration These treatments will address the objective and functional deficits as defined above. The patient will be advanced safely and appropriately in order for the patient to progress towards his/her prior level of function. Additional exercises will be introduced and as well as a comprehensive home exercise program upon discharge, if needed, ?to ensure carryover of functional gains achieved in the clinic. This treatment plan has been reviewed and agreement upon by the patient.
--- NOTE | 2023-01-28 12:38 | PTOPDC ---
Assessment and note entered by Mindy Perez, PT Evaluation Information Assessment PT Clinical Summary PHYSICAL THERAPY DISCHARGE No has received 10 PT sessions s/p R TKR. She called and stated at the follow up appointment told her she does not need anymore therapy. Therefore, she will be discharged from PT services The goals were not addressed. Plan of Care PT Services Indicated No
== END 2023-01-30 13:29 | disposition home or self-care (01) ==
LOC: ANHPT 15:00
PROVIDERS: PCP Family Medicine Sports Medicine; Visit Provider Orthopaedic Surgery
DX: Z47.1 Aftercare following joint replacement surgery (principal); Z96.651 Presence of right artificial knee joint
CPT/HCPCS: 97110; 97112; 97140; 97161; 97530

== ENCOUNTER 2023-04-25 07:41 | Outpatient (CLI) | payer BC, SELFPAY ==
--- NOTE | 2023-04-25 | ECHO_ITS ---
Patient Info Name: Jessica Dwyer Age: 57 years : 1965 Gender: Female Ht: 63 in Wt: 172 lbs BSA: 1.89 m2 HR: 80 bpm BP: 150 / 87 mmHg Technical Quality: Good Exam Date: 04/25/2023 7:55 AM Exam Location: Echo Lab Patient Status: Outpatient Admit Date: 04/25/2023 Staff Ordering Physician: Camron Franco DO Release Of Information Specialist: Julianna Lee RDCS Attending Provider: Camron Franco DO Referring Physician: Salvador ZIMMERMAN; Exam Type: CA echo doppler color flow Study Info Indications I10 - Essential (primary) hypertension Complete two-dimensional, color flow and Doppler transthoracic echocardiogram is performed. Summary 1. Complete two-dimensional, color flow and Doppler transthoracic echocardiogram is performed. 2. Left ventricular chamber dimension is normal. 3. Left ventricular systolic function is normal, estimated at 60-65%. 4. The left ventricular diastolic function is grade I diastolic dysfunction. 5. E/e' 8 is minimally elevated. 6. Global longitudinal strain is mildly abnormal at -16.4%. 7. There is mild to moderate aortic valve regurgitation. 8. The mitral valve has mildly calcified annulus. 9. There is mild mitral valve regurgitation. 10. There is mild tricuspid valve regurgitation. 11. No pulmonary hypertension, estimated pulmonary arterial systolic pressure is 28 mmHg. Left Ventricle E/e' 8 is minimally elevated. Global longitudinal strain is mildly abnormal at -16.4%. Left ventricular chamber dimension is normal. Left ventricular systolic function is normal, estimated at 60-65%. The left ventricular diastolic function is grade I diastolic dysfunction. Right Ventricle Right ventricular systolic function is normal and with normal TAPSE 2.3 cm. Right ventricular chamber dimension is normal. Left Atria Left atrial chamber dimension is normal. Right Atria Right atrial chamber dimension is normal. Aortic Valve The aortic valve is trileaflet. There is no aortic valve stenosis. There is mild to moderate aortic valve regurgitation. Pulmonic Valve There is no pulmonic regurgitation. Mitral Valve The mitral valve has mildly calcified annulus. There is no mitral valve stenosis. There is mild mitral valve regurgitation. Tricuspid Valve There is mild tricuspid valve regurgitation. No pulmonary hypertension, estimated pulmonary arterial systolic pressure is 28 mmHg. Pericardium/Pleural There is no pericardial effusion. Inferior Vena Cava Normal inferior vena cava with >50% collapse upon inspiration consistent with normal right atrial pressure, 5 mmHg. Aorta The aortic root size at the sinus of Valsalva is normal. Left Ventricular Outflow Tract Name Value Normal LVOT 2D LVOT Diameter 1.9 cm LVOT Doppler LVOT Peak Gradient 5 mmHg LVOT Mean Gradient 3 mmHg LVOT VTI 26 cm LVOT VTI/AV VTI Ratio 0.9 LVOT Stroke Volume 75 ml LVOT CO 4.7 l/min LVOT CI 2.5 l/min/m2 Pulmonic Valve Name
== END 2023-04-25 07:42 | disposition home or self-care (01) ==
LOC: ANHCARD 07:42
PROVIDERS: PCP Family Medicine; Visit Provider Internal Medicine Cardiovascular Disease
DX: I10 Essential (primary) hypertension (principal); I34.0 Nonrheumatic mitral (valve) insufficiency; I36.1 Nonrheumatic tricuspid (valve) insufficiency; I35.1 Nonrheumatic aortic (valve) insufficiency
CPT/HCPCS: 93306

== ENCOUNTER 2023-09-18 14:00 | Outpatient (CLI) | payer BC, SELFPAY ==
[2023-09-18 15:34] LABS: Albumin Level 4.4 g/dL (3.5-5.1); Anion Gap 3 mmol/L (4-12); Blood Urea Nitrogen 16 mg/dL (7-17); Calcium 9.1 mg/dL (8.4-10.2); Carbon Dioxide 34 mmol/L (22-30); Chloride 103 mmol/L (98-107); Estimated Glomerular Filt Rate > 60; Glucose 100 mg/dL (65-110); Potassium 3.9 mmol/L (3.4-5.0); Sodium 140 mmol/L (137-145)
[2023-09-18 15:36] LABS: Hemoglobin A1C 5.6 % (<5.7)
[2023-09-18 15:37] LABS: Urine Cotinine NEGATIVE
[2023-09-18 15:46] LABS: Basophils Absolute Auto 0.1 K/mm3 (0.0-0.1); Basophils Percent Auto 0.7 % (0.2-1.2); Eosinophils Absolute Auto 0.4 K/mm3 (0-0.3); Eosinophils Percent Auto 5.4 % (0-4.4); Hematocrit 41.6 % (37.0-47.0); Hemoglobin 13.1 g/dL (12.0-15.0); Immature Granulocyte Absolute 0.07 K/mm3 (0.00-0.031); Lymphocytes Absolute Auto 0.86 K/mm3 (0.9-3.2); Lymphocytes Percent Auto 12.7 % (18.3-44.2); Mean Corpuscular HGB Conc 31.5 g/dl (32-36); Mean Corpuscular Hemoglobin 30.7 pg (26-34); Mean Corpuscular Volume 97.4 fl (80-100); Mean Platelet Volume 9.8 fl (7.4-10.4); Monocytes Absolute Auto 0.6 K/mm3 (0.1-0.6); Monocytes Percent Auto 9.4 % (2.6-8.5); Neutrophils Absolute Auto 4.8 K/mm3 (1.3-6.7); Neutrophils Percent Auto 70.8 % (45.5-73.1); Platelet Count Result 323 k/mm3 (150-375); Red Blood Count 4.27 M/mm3 (4.2-5.4); Red Cell Distribution Width 13.1 % (11.5-14.5); White Blood Count 6.8 K/mm3 (4.5-10.0)
== END 2023-09-18 14:01 | disposition home or self-care (01) ==
LOC: ANHSURGERY 14:04
PROVIDERS: PCP Family Medicine; Visit Provider Orthopaedic Surgery
DX: M17.12 Unilateral primary osteoarthritis, left knee (principal); Z01.818 Encounter for other preprocedural examination
CPT/HCPCS: 80048; 80307; 82040; 83036; 85025; 87081

== ENCOUNTER 2023-10-08 07:05 | Outpatient (CLI) | payer BC, SELFPAY ==
--- NOTE | ~2023-10-08 | NM_ITS ---
EXAMINATION: NM little stress w perfusion DATE: 10/08/2023 09:42 INDICATION: Abnormal electrocardiogram. Preop. TECHNIQUE: Rest images were obtained following intravenous administration of 10.8 mCi Tc99m tetrofosm in (Myoview). The patient was infused intravenously with Lexiscan (regadenoson). Then, 34.5 mCi Tc99m tetrofosmin (Myoview) was administered intravenously, and stress images were obtained. Data was carol nstructed into short axis and horizontal and vertical long axis SPECT images. Gated SPECT images were also obtained. COMPARISON: None. FINDINGS: There is no definite reversible or fixed perfusion abnormality to suggest ischemia or infar ction. There is no segmental wall motion abnormality. Left ventricular ejection fraction measures 5 7%. IMPRESSION: 1. No definite ischemia or infarct. 2. Normal left ventricular ejection fraction measuring 57%. Reviewed, dictated and finalized at location A.
--- NOTE | 2023-10-08 07:17 | EST_ITS ---
Patient Info Name: Jessica Dwyer Age: 58 years : 1965 Gender: Female Ht: 63 in Wt: 183 lbs BSA: 1.95 m2 HR: 80 bpm BP: 133 / 97 mmHg Heart Rhythm: Sinus Rhythm Exam Date: 10/08/2023 8:25 AM Exam Location: Echo Lab Patient Status: Outpatient Admit Date: 10/08/2023 Staff Ordering Physician: Camron Franco DO Attending Provider: Camron Franco DO Exercise Technologist: Desi Verma CT Exercise Physician: Camron Franco DO Exam Type: CA stress little w NM Study Info Indications R07.89 - Other chest pain A regadenoson stress test was performed. Summary 1. 1. Negative lexiscan stress test for ischemic ST changes by ECG criteria. 2. 2. Stable hemodynamics throughout the test. 3. 3. Nuclear scan to follow and will be reported separately. Please correlate with it. 4. 4. Patient informed of the above results. Protocol: Lexiscan Stress ECG Details Stage: REST Duration (min): 3 min : 45 sec HR (bpm): 82 SBP (mmHg): 133 DBP (mmHg): 97 Stage: REST Duration (min): 13 min : 42 sec HR (bpm): 89 SBP (mmHg): 133 DBP (mmHg): 97 Stage: STAGE 1 Duration (min): 0 min : 59 sec HR (bpm): 122 SBP (mmHg): 171 DBP (mmHg): 101 Stage: RECOVERY Duration (min): 1 min : 0 sec HR (bpm): 121 SBP (mmHg): 171 DBP (mmHg): 101 Stage: RECOVERY Duration (min): 2 min : 0 sec HR (bpm): 118 SBP (mmHg): 171 DBP (mmHg): 101 Stage: RECOVERY Duration (min): 3 min : 0 sec HR (bpm): 112 SBP (mmHg): 191 DBP (mmHg): 99 Stage: RECOVERY Duration (min): 3 min : 17 sec HR (bpm): 113 SBP (mmHg): 191 DBP (mmHg): 99 Rest HR: 89 bpm Peak HR: 126 bpm Rest Sys BP: 133 mmHg Peak Sys BP: 191 mmHg Max Pred HR: 160 bpm % Max Pred HR: 79 % Target HR: 136 bpm Max RPP: 24,066 bpm*mmHg Termination Reason: Completed protocol Cardiac Symptoms: Shortness of breath Total Time: 1 min : 0 sec Rest Jones BP: 97 mmHg Peak Jones BP: 99 mmHg Total Dose: 0.4 mg Resting ECG Sinus rhythm. Stress ECG No ST changes. Arrhythmias None. Report Signatures
== END 2023-10-08 07:06 | disposition home or self-care (01) ==
PROVIDERS: PCP Family Medicine; Visit Provider Internal Medicine Cardiovascular Disease
DX: Z01.818 Encounter for other preprocedural examination (principal)
CPT/HCPCS: 78452; 93017; A9502; J2785

== ENCOUNTER 2023-10-09 01:22 | Day surgery (SDC) | payer BC, SELFPAY ==
--- NOTE | 2023-09-18 13:39 | PC.NURSE ---
PRE-OP INSTRUCTIONS, PLEASE READ CAREFULLY Report to the Outpatient Waiting Room, entrance under the green pavilion located off [address], at time _0600_ on date _10/09/23_. Planned Procedure Time: _0730_. PACK A SMALL OVERNIGHT BAG AND LEAVE IN THE CAR ALONG WITH YOUR WALKER Time changes happen often and if your time is changed the preop area will call you the afternoon before. - You and your visitor will be asked to self-screen and do not enter if you have any COVID symptoms. - A mask is optional within the hospital at this time. -VISITING HOURS 8AM-8PM Patients may have clear liquids (water, carbonated beverages, clear teas, apple juice) until 3 hours prior to surgery (0430 AM) with a maximum of 20 ounces. - No food from midnight until time of surgery Take the following medications with a SIP of water the morning of surgery: _TYLENOL IF NEEDED_ DO NOT STOP ANY OF YOUR OTHER PRESCRIPTION MEDICATIONS PRIOR TO SURGERY ?EXCEPT THE FOLLOWING Medications to discontinue per DR. MOISE - _[id number]-[id number] PACKET 7 DAYS PRIOR TO SURGERY, Date to take last dose 10/01/23_ Please no make-up, nail pashto, hairspray, perfume, deodorant, or body powder the day of surgery. No jewelry (including any body piercings) or valuables the day of surgery, leave them at home. Please take a shower or bath the night before, or the morning of, surgery with an antibacterial soap. Wear comfortable, loose fitting clothing. - Jewelry must be removed prior to entering the operating room. Rings and piercings that are not removed may be cut off. - The hospital will not accept responsibility for valuables. - Please leave all valuables, including medications, at home the day of surgery. If you are going home after surgery, a licensed nascar driver must drive you home. - NO public transportation without another adult if you receive anesthesia. - We recommend that an adult stay with you for 24 hours following discharge. - We also recommend that you do not drive, make important decision, drink alcoholic beverages, or take any drugs that were not prescribed by your health care provider for at least 24 hours after your discharge time. Follow any additional instructions given to you from your surgeon. TOTAL JOINT REPLACEMENT CLASS 10/01/23 @ 10AM, [facility] ENTRANCE 2 - LOWER LEVEL If you or anyone in your household have experienced Covid symptoms in the past week, please notify your surgeon or the nurse liaison at the phone number below for possible testing. Instructions given to _PATIENT_and asked if any additional questions and then verbalized understanding. Patient advised to call surgeon office or pre surgery nurse liaison [phone] if any additional questions.
[2023-09-18 14:32] VITALS: BP 120/80; PULSE 76; RESP 18; TEMP 37.2; O2SAT 100; BMI 33.8
--- NOTE | 2023-10-08 15:49 | PM.IMHP ---
H&P: HPI History of Present Illness Date/Time: 10/08/23 15:49 Chief Complaint: Severe medial compartment osteoarthritis left knee Narrative: Patient is a 58-year-old female who presents for left total knee arthroplasty. She underwent right total knee arthroplasty in November of 2022 and she did very well. She did have severe bruising up and down the right leg much more severe than usual. She had not been taking aspirin. She was on Xarelto and 100 mg of Celebrex. She also cannot tolerate standard narcotics. She tolerated Nucynta but only at an every 8 hour dosing. Every 6 hours caused her chest pain. In order to minimize narcotics I recommended this time using Lovenox for DVT prophylaxis and Celebrex 200 mg twice daily for pain control addition to Tylenol in the hopes that she can minimize the use of Nucynta. After surgery she was noted to have an abnormality on her EKG and as result she had an echocardiogram April 25, 2023 which showed no regional wall motion abnormality and ejection fraction was 60-65%. Grade 1 diastolic left ventricular dysfunction. Patient does have history of essential hypertension. She was evaluated by Dr. Krueger this month and had a Lexiscan stress test on 10/08/2023 which demonstrated ejection fraction of 57% no ischemia or infarct no ECG changes. X-rays of her left knee from 05/02/2023 show advanced medial compartment osteoarthritis with prominent medial subluxation of femur on tibia and varus deformity. [facility] Past Medical History Medical History (Updated 10/06/23 @ 11:39 by Camron Franco DO) Back pain Chronic headaches Degenerative arthritis of knee, bilateral Endometriosis History of endometrial biopsy (11/12/01) hscope EMB--benign Hypertension Migraines Obesity (BMI 30-39.9) Osteoarthritis Screening mammogram, encounter for Surgical History Surgical History (Updated 09/26/23 @ 09:34 by Michelle Sotelo CMA) History of foot surgery (~2014) right foot History of hand surgery finger History of knee surgery 07/05/2014 partial meniscectomy--arthroscopy 2016 History of laparoscopy multiple lscopes for endometriosis History of right knee surgery (~10/10/10) History of surgery on wrist (~2014) History of total abdominal hysterectomy and bilateral salpingo-oophorectomy (02/04/02) adhesiolysis--leiomyomata, endometriosis, bicornuate uterus Status post total right knee replacement 12/09/2022 Family History Family History Other Adopted person Social History Social History (Updated 09/03/23 @ 10:43 by Jaclyn Handley CMA) Smoking status: Never smoker Second hand tobacco smoke exposure: No Additional smoking assessment comments: PT DENIES ALL FORMS OF TOBACCO USE Alcohol intake: never Substance use: never Substance use type: does not use Do You Feel Safe in your Home?: Yes Lack of Transportation: No Lack of Food: Never True Current Housing: I Have Housing Concerned About Future Housing: No Difficulty Paying Gas/Electric Bills: No Difficulty Paying for Meds: No Currently Unemployed: No Education: High School Diploma/GED Difficulty w/ Childcare or Family Care: No Living arrangements: with family Additional living arrangements comments: Occupation/Education: occupation 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
[2023-10-09] VITALS (16 sets, daily range): BP systolic 92–167; BP diastolic 40–88; PULSE 85–128; RESP 10–16; TEMP 36.1–36.6; O2SAT 94–99; BMI 33.5
--- NOTE | ~2023-10-09 | XR_ITS ---
EXAMINATION: [id number] DATE: 10/09/2023 10:55 INDICATION: Total left knee arthroplasty. Postop. TECHNIQUE: 2 views of left knee were obtained. COMPARISON: None. FINDINGS: There is a total left knee arthroplasty with patellar resurfacing in near-anatomic alignmen t. No fracture. There is gas in the knee joint and soft tissues, consistent with recent surgery. IMPRESSION: 1. Total left knee arthroplasty in near-anatomic alignment. Reviewed, dictated and finalized at location A.
[2023-10-09] MEDS: LACTATED RINGERS 1,000 ML 30 ML IV CONT ×3 (06:35→12:29)
[2023-10-09] MEDS: VANCOMYCIN 1,250 MG/NS 250 ML BAG 166.67 MG IVPB (06:35)
[2023-10-09] MEDS: ACETAMINOPHEN 500 MG TABLET 1000 MG PO ×3 (06:48→17:21)
--- NOTE | 2023-10-09 06:54 | WPDANESEPPF ---
Anes - Initial Pre Proc Eval Procedure: Operation Date: 10/09/23 07:30 Proposed Procedures p Left Total Knee Arthroplasty - Karel Chavez MD Date/Time: 10/09/23 06:54 Surgeon: Karel Chavez MD Pre Op Diagnosis: O A Lt Knee Patient Data Age: 58 Gender: F Height: 1.57 m Weight: 83.9 kg Last Vital Signs Temp 37.2 C 09/18/23 14:32 Pulse 76 09/18/23 14:32 Resp 18 09/18/23 14:32 BP 120/80 09/18/23 14:32 Pulse Ox 100 09/18/23 14:32 O2 Del Method Room Air 09/18/23 14:32 Allergies Allergy/AdvReac Type Severity Reaction Status Date / Time morphine Allergy Mild Hives Verified 10/09/23 06:19 tapentadol [From Nucynta] AdvReac Severe chest pain Verified 10/09/23 06:19 azithromycin AdvReac Intermediate Vomiting Verified 10/09/23 06:19 hydrocodone [From Vicodin] AdvReac Intermediate Vomiting Verified 10/09/23 06:19 methylprednisolone AdvReac Intermediate Vomiting Verified 10/09/23 06:19 [From Medrol] oxycodone AdvReac Intermediate Vomiting Verified 10/09/23 06:19 tramadol AdvReac Intermediate Headache Verified 10/09/23 06:19 Home Medications Medication Instructions Recorded Confirmed Type losartan 50 mg tablet 50 mg PO DAILY 04/24/22 10/06/23 History IEZ-ibuwiljhrbogw-ljgbhkxd-potassium 1 packet DAILY PRN Migraine 10/23/22 10/09/23 History 520 mg-260 mg-32.5 mg oral packet Headache acetaminophen 650 mg 1,300 mg PO TID PRN Pain 10/23/22 10/06/23 History tablet,extended release Patient hx anesthesia problems: none Family hx anesthesia problems: none Results Review: All pre-operative results and documents have been reviewed as part of the pre-operative evaluation. [facility] Past Medical History Medical History Back pain Chronic headaches Degenerative arthritis of knee, bilateral Endometriosis History of endometrial biopsy (11/12/01) hscope EMB--benign Hypertension Migraines Obesity (BMI 30-39.9) Osteoarthritis Screening mammogram, encounter for Surgical History Surgical History History of foot surgery (~2014) right foot History of hand surgery finger History of knee surgery 07/05/2014 partial meniscectomy--arthroscopy 2016 History of laparoscopy multiple lscopes for endometriosis History of right knee surgery (~10/10/10) History of surgery on wrist (~2014) History of total abdominal hysterectomy and bilateral salpingo-oophorectomy (02/04/02) adhesiolysis--leiomyomata, endometriosis, bicornuate uterus Status post total right knee replacement 12/09/2022 Family History Family History Other Adopted person Social History Social History Smoking status: Never smoker Second hand tobacco smoke exposure: No Additional smoking assessment comments: PT DENIES ALL FORMS OF TOBACCO USE Alcohol intake: never Substance use: never Substance use type: does not use Do You Feel Safe in your Home?: Yes Lack of Transportation: No Lack of Food: Never True Current Housing: I Have Housing Concerned About Future Housing: No Difficulty Paying Gas/Electric Bills: No Difficulty Paying for Meds: No Currently Unemployed: No Education: High School Diploma/GED Difficulty w/ Childcare or Family Care: No Living arrangements: with family Additional living arrangements comments: Occupation/Education: occupation 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
[2023-10-09] MEDS: TRANEXAMIC ACID 1,000MG/ISO100 1,000 MG/100 ML BAG 200 MG IVPB (07:10)
--- NOTE | 2023-10-09 07:17 | WPDHPUPDATE1 ---
History and Physical Update Update Date/Time: 10/09/23 07:17 History and Physical has been reviewed, including an updated exam of the patient. There are NO changes in the patient's condition. Risks, benefits, and alternatives have been discussed and questions answered. Patient agrees to proceed with procedure.
[2023-10-09] MEDS: ceFAZolin 2 GM/D5W 50 ML 2 GM/50 ML BAG IVPB ×3 (07:32→17:45)
[2023-10-09] MEDS: ceFAZolin SODIUM 1 GM VIAL 3 GM (07:56)
[2023-10-09] MEDS: SODIUM CHLORIDE 0.9% IV 38.7 ML, ROPivacaine HCL 1% 200 MG, KETOROLAC INJ (*BKC) 15 MG,... INFILTRATE (07:58)
[2023-10-09] MEDS: dexAMETHasone SOD PHOS INJ 4 MG/ML VIAL 8 MG IV PUSH (08:03)
[2023-10-09] MEDS: GENTAMICIN BONE CEMENT REFOBACIN 1 EACH TOPICAL (09:47)
[2023-10-09] MEDS: TRANEXAMIC ACID 1,000 MG/10 ML AMPUL 1000 MG IV PUSH (10:03)
[2023-10-09] MEDS: KETOROLAC 15 MG/ML VIAL (*BKC) IV PUSH ×2 (11:41→17:22)
[2023-10-09] MEDS: fentaNYL CITRATE INJ (*CRX) 100 MCG/2 ML VIAL 25 MCG IV PUSH ×6 (12:06→14:29)
[2023-10-09] MEDS: SODIUM CHLORIDE 0.9% IV 1,000 ML 125 ML IV CONT (14:33)
[2023-10-09] MEDS: TAPENTADOL HCL (*CRX) 50 MG TABLET PO ×2 (14:33→20:48)
--- NOTE | 2023-10-09 14:49 | PM.IMCN ---
Assessment and Plan Assessment and plan (1) Primary osteoarthritis of left knee: Code(s): M17.12 - Unilateral primary osteoarthritis, left knee Status: Acute Assessment and Plan: Underwent a total left knee arthroplasty on 10/09/2023 with Scott VERGARA. - ambulate with assistance and up to chair - use IS - neurovasc checks - see order for intervals - SCDs and TEDs - resume diet - pain management: Tyl p.o. q.6h, Celebrex 200 mg b.i.d., Toradol IVP x3, tapentadol 50 mg p.o. q.8h - zofran PRN for nausea - monitor labs in AM - CBC and BMP - bowel regimen: docusate/senna, polyethylene glycol - maintenance fluids: NS 125 mL/hr x8 hours - prophylactic abx - Ancef - PT/OT (2) Hypertension: Code(s): I10 - Essential (primary) hypertension Status: Acute Assessment and Plan: - chronic, currently 114/67 - continue home medications: losartan HS - monitor (3) Migraines: Code(s): G43.909 - Migraine, unspecified, not intractable, without status migrainosus Status: Acute Assessment and Plan: - hold home GBO-Lwkfjllifuyxd-Qufi-[place], had significant ecchymosis post-previous knee arthroplasty - TYL 1G Q6H prn - adding melatonin to assist with sleep to help with headache resolution Plan Patient underwent a left hand knee total arthroplasty with MD Scott. Plan for PT/OT. Monitor for bruising. Monitor BP. Diet: regular GI Prophylaxis: famotidine PO DVT Prophylaxis: TEDs and SCDs Lines: peripheral Code Status: full code HPI Date of Consult Consult date: 10/09/23 (17:00) Requesting Physician: Karel Chavez MD Primary Care Provider: Dennis Rucker, Consult Narrative Reason for consult: Medical Managment Narrative: 58 y/o F presents here for surgical management of her severe medial compartment osteoarthritis of the left knee. PMH includes endometriosis, migraines, HTN, and osteoarthritis. Patient here for surgical management of her severe medial compartment osteoarthritis in her left knee and has 7 degree anatomic axis varus deformity per ortho office visit note. Previously received cortisone injections, physical therapy and was taking OTC antiinflammatory medications. Does have hx of severe intolerance to narcotics including: hydrocodone, oxycodone, and tramadol. Tolerates NSAIDs and TYL well. Has previously underwent a total knee arthroplasty with Griffin VERGARA in 11/2022 which was tolerated well, has had good results, but did have significant bruising post-op which was attributed to combination of Xarelto (DVT prophylaxis) and Celebrex (pain control). Given hx, DVT prophylaxis exchanged to Lovenox and Celebrex increased. Patient has planned total left knee arthroplasty with Scott VERGARA today (10/08). Patient currently reporting mild headache that was present to prior surgery and mild stiffness post-PT. pre-op labs: no leukocytosis, no anemia, creatinine 0.9 and GFR >60, and no significant electrolyte derangements. initial VS: 98.9? F, HR 76, R 18, 120/80, and 100% on RA. Review of Systems Review of Systems: All systems reviewed & are unremarkable except as noted in HPI and below PMFSH Past Medical History Medical History (Updated 10/09/23 @ 15:18 by Debi Patel APRN) Back pain Chronic headaches Degenerative arthritis of knee, bilateral Endometriosis History of claustrophobia History of endometrial biopsy (11/12/01) hscope EMB--benign Hypertension Migraines Obesity (BMI 30-39.9) Osteoarthritis Screening mammogram, encounter for Surgical History Surgical History (Updated 10/09/23 @ 15:09 by Debi Patel APRN) History of foot surgery (~2014) right foot History of hand surgery finger History of knee surgery 07/05/2014 partial meniscectomy--arthroscopy 2016 History of laparoscopy multiple lscopes for endometriosis History of right knee surgery (~10/10/10) History of surgery on wrist (~2014) History of total abdominal hysterectomy a
--- NOTE | 2023-10-09 14:50 | W.PM.PROC2 ---
Procedure Note - Detailed Date of Procedure 10/09/23 Pre-op Diagnosis O A Lt Knee Post-op Diagnosis Same Procedure Performed Left total knee arthroplasty Surgeon Karel Chavez MD [employer] Anesthesia General Description of Procedure Patient was brought to the operating room and general anesthesia was administered. She received 2 g of Ancef weight based vancomycin 1 g TXA preoperatively. The left knee had about a 3 degree flexion contracture preoperatively. Moderate mediolateral pseudolaxity. The knee was prepped draped fashion. Limb was exsanguinated tourniquet elevated to 300 mmHg. A 7 in longitudinal midline incision was used and a vastus medialis splitting approach utilized splitting the vastus medialis at the superior pole of the patella. Infrapatellar fat pad partially excised suprapatellar fat pad excised quadriceps synovectomy carried out. The patella was scalloped with large osteophytes. It measured II mm in thickness. It was cut to 15.5 mm and a protector cap was applied. Bone density was very good. Next a guide harshal was inserted down the femoral canal after aspiration of canal contents and using the 5 degree valgus cutting bushing 8 mm of bone removed the distal femur. She had a fair amount of wear on the medial femoral condyle so this resulted in a full 8 mm of bone removed from the lateral femoral condyle. Next the tibial plateau was cut. We made a skim cut off the low point medial tibial plateau perpendicular to the axis of the tibia. Meniscal remnants were excised. A conservative removal of the prominent anteromedial tibial osteophyte was removed. PCL recessed. Flexion gap measured 8 mm medially 12 mm laterally. The femoral sizing guide was applied set at 5? of external rotation which matched Whitesides line and posterior referencing pinholes were placed and the 62.5 vanguard cutting block applied AP and chamfer cuts were made the fit was very good. The 10 CR insert was placed at 90? of flexion and we noted that we were tight medially both in flexion and extension. The tibia was sized to a size 67 which was placed at proper rotation and punched. We then thoroughly removed medial and posteromedial tibial osteophyte. This was done without releasing any of the medial capsule a this point. We trialed again and with the 10 insert we were still a little bit tight medially compared to laterally a 90? and we were significantly tighter medially compared to laterally in extension. I elected to carefully resect 1 mm more bone from medial tibial plateau and transitioned this to the lateral plateau to introduce 1 or 2? of varus. We took care to make and verify a perfectly flat tibial cut. The femoral component was applied to the femur and we removed a little bit of residual posterior femoral osteophyte the and removed laterally. On repeat trialing, the 10 insert had 1-2 mm of medial and lateral opening at 90? of flexion and the size 11 insert a 1 mm medial lateral opening at 90?. Extension with the 10 however the knee came out just to full extension with negative bounce but no play medially and with the arthrotomy told that there was a little bit of a bounce in extension. I verified the the distal femoral cut alignment was exactly 5? with the 5 degree harshal and I elected remove 1 more mm of bone from the distal medial femoral condyle and confirmed distal femoral alignment to be 4? with a 4 degree harshal. There was already between 3 and 4 mm of lateral opening so I did not want to take additional bone from the distal lateral femoral condyle. This time on trialing the knee came out to full extension with 1 mm medial opening 3-4 mm of lateral opening and appropriate stability with flexion. The patella was sized to a 31 thin composite thickness 22 mm lug holes were drilled through the femoral trial. The limb was re-exsanguinated and tourniquet elevated to 3 mmHg. It had been put down at 90 minutes. The bony surfaces were irrigated
--- NOTE | 2023-10-09 15:16 | PCOTNOTE ---
Attempted to see pt for OT evaluation however pt was getting ready to work with PT. Will continue to follow.
--- NOTE | 2023-10-09 16:09 | PC.NURSE ---
This patient, Jessica Dwyer, was admitted to 3 [facility] Surg Room 309-01. Patient/family oriented to hospital policies and general routines including ID bracelet, bed and alarms, visiting hours, pain management, procedures, bathroom and other care routines, personal items, smoking policy, room service/diet, and visiting hours. Information on how to activate the Rapid Response Team has been discussed. Patient/Family are encouraged to report perceived risks to care and to ask questions if they do not understand what they are told or what they should do.
[2023-10-09] MEDS: CELECOXIB 200 MG CAPSULE PO (17:20)
[2023-10-09] MEDS: SENNA/DOCUSATE SODIUM TABLET 2 TAB PO (17:21)
[2023-10-09] MEDS: VANCOMYCIN 1,000 MG/NS 250 ML 1,000 MG/250 ML BAG 250 MG IVPB (18:15)
[2023-10-09] MEDS: LOSARTAN POTASSIUM 50 MG TABLET PO (20:47)
[2023-10-09] MEDS: FAMOTIDINE 20 MG TABLET PO (20:47)
[2023-10-09] MEDS: MELATONIN 5 MG TABLET PO (20:47)
[2023-10-10 00:39] VITALS: BP 117/72; PULSE 93; RESP 16; TEMP 36.3; O2SAT 95
[2023-10-10] MEDS: KETOROLAC 15 MG/ML VIAL (*BKC) IV PUSH (01:05)
[2023-10-10] MEDS: ACETAMINOPHEN 500 MG TABLET 1000 MG PO ×2 (01:05→05:42)
[2023-10-10] MEDS: ceFAZolin 2 GM/D5W 50 ML 2 GM/50 ML BAG IVPB ×2 (01:06→08:56)
[2023-10-10 04:48] VITALS: BP 118/72; PULSE 88; RESP 14; TEMP 36.2; O2SAT 97
[2023-10-10] MEDS: VANCOMYCIN 1,000 MG/NS 250 ML 1,000 MG/250 ML BAG 250 MG IVPB (05:41)
[2023-10-10] MEDS: TAPENTADOL HCL (*CRX) 50 MG TABLET PO (05:41)
[2023-10-10 06:24] LABS: Basophils Percent Auto 0.2 % (0.2-1.2); Eosinophils Percent Auto 0.2 % (0-4.4); Hematocrit 35.8 % (37.0-47.0); Hemoglobin 11.3 g/dL (12.0-15.0); Immature Granulocyte Absolute 0.07 K/mm3 (0.00-0.031); Immature Granulocyte Percent A 0.5 % (0-0.5); Lymphocytes Absolute Auto 0.69 K/mm3 (0.9-3.2); Lymphocytes Percent Auto 4.6 % (18.3-44.2); Mean Corpuscular HGB Conc 31.6 g/dl (32-36); Mean Corpuscular Hemoglobin 30.9 pg (26-34); Mean Corpuscular Volume 97.8 fl (80-100); Mean Platelet Volume 10.1 fl (7.4-10.4); Monocytes Absolute Auto 1.4 K/mm3 (0.1-0.6); Monocytes Percent Auto 9.2 % (2.6-8.5); Neutrophils Absolute Auto 12.9 K/mm3 (1.3-6.7); Neutrophils Percent Auto 85.3 % (45.5-73.1); Platelet Count Result 254 k/mm3 (150-375); Red Blood Count 3.66 M/mm3 (4.2-5.4); White Blood Count 15.1 K/mm3 (4.5-10.0)
[2023-10-10 06:30] LABS: Anion Gap 8 mmol/L (4-12); Blood Urea Nitrogen 15 mg/dL (7-17); Calcium 8.9 mg/dL (8.4-10.2); Carbon Dioxide 27 mmol/L (22-30); Chloride 104 mmol/L (98-107); Estimated CRCL calculation 58 ml/min; Estimated Glomerular Filt Rate > 60; Glucose 123 mg/dL (65-110); Potassium 3.9 mmol/L (3.4-5.0); Sodium 139 mmol/L (137-145)
[2023-10-10 08:04] VITALS: BP 108/59; PULSE 86; RESP 16; TEMP 36.2; O2SAT 97
[2023-10-10] MEDS: SENNA/DOCUSATE SODIUM TABLET 2 TAB PO (08:57)
[2023-10-10] MEDS: CELECOXIB 200 MG CAPSULE PO (08:57)
[2023-10-10] MEDS: polyethylene glycoL 3350 17 GM POWD.PACK PO (08:58)
[2023-10-10] MEDS: CEFDINIR 300 MG CAPSULE PO (08:58)
[2023-10-10] MEDS: ENOXAPARIN 30 MG/0.3 ML SYRINGE SUB-Q (08:58)
[2023-10-10] MEDS: FAMOTIDINE 20 MG TABLET PO (08:58)
--- NOTE | 2023-10-10 10:56 | PM.PNORT ---
Subjective Subjective Date/Time Seen: 10/10/23 10:56 Interval history: Postop day 1 patient is alert. She is comfortable. Pain is well controlled. Dressing is dry and intact. No bruising noted. Morning labs are noted. Overall patient is doing very well. We will plan have patient work with physical therapy today and discharge her home this afternoon. Objective Data Vital Signs Vital Signs: Vital Signs - 24 hr 10/09/23 11:11 10/09/23 11:26 10/09/23 11:41 Temperature Pulse Rate 112 H 113 H 112 H Respiratory Rate 12 12 Blood Pressure 93/51 L 97/53 L 113/60 Pulse Oximetry 97 97 98 Oxygen Delivery Simple Face Mask Simple Face Mask Simple Face Mask Oxygen Flow Rate 10 10 10 10/09/23 11:56 10/09/23 12:11 10/09/23 12:26 Temperature Pulse Rate 126 H 122 H 128 H Respiratory Rate Blood Pressure 120/69 121/65 120/59 L Pulse Oximetry 99 99 99 Oxygen Delivery Simple Face Mask Simple Face Mask Room Air Oxygen Flow Rate 10 10 10/09/23 12:41 10/09/23 12:56 10/09/23 13:11 Temperature Pulse Rate 122 H 114 H 111 H Respiratory Rate Blood Pressure 113/59 L 109/66 101/62 Pulse Oximetry 99 94 94 Oxygen Delivery Room Air Room Air Nasal Cannula Oxygen Flow Rate 2 10/09/23 13:26 10/09/23 13:36 10/09/23 14:29 Temperature 97.6 F Pulse Rate 113 H 110 H 105 H Respiratory Rate 10 L 11 L Blood Pressure 95/62 L 105/58 L 114/67 Pulse Oximetry 94 94 97 Oxygen Delivery Nasal Cannula Nasal Cannula Oxygen Flow Rate 2 2 10/09/23 15:01 10/09/23 16:48 10/09/23 20:48 Temperature 97 F L 98 F Pulse Rate 102 H 100 Respiratory Rate 12 14 Blood Pressure 120/62 136/80 Pulse Oximetry 98 99 Oxygen Delivery Room Air Oxygen Flow Rate 10/09/23 20:00 10/10/23 00:39 10/10/23 04:48 Temperature 97.3 F L 97.1 F L Pulse Rate 93 88 Respiratory Rate 16 14 Blood Pressure 117/72 118/72 Pulse Oximetry 95 97 Oxygen Delivery Room Air Oxygen Flow Rate 10/10/23 08:04 05/24/24 08:00 Temperature 97.2 F L Pulse Rate 86 Respiratory Rate 16 Blood Pressure 108/59 L Pulse Oximetry 97 Oxygen Delivery Room Air Oxygen Flow Rate Intake/Output Intake/Output: Intake & Output 10/07/23 10/08/23 10/09/23 10/10/23 23:59 23:59 23:59 23:59 Intake Total 2540 675 Output Total 600 Balance 1940 675 Meds/Results Medications: Active Medications Generic Name Dose Route Start Last Admin Trade Name Freq PRN Reason Stop Dose Admin Acetaminophen 1,000 mg 10/09/23 12:00 10/10/23 05:42 Acetaminophen 500 Mg Tablet PO 1,000 mg Q6H HALI Administration Cefdinir 300 mg 10/10/23 09:00 10/10/23 08:58 Cefdinir 300 Mg Capsule PO 300 mg Q12HR HALI Administration Celecoxib 200 mg 10/09/23 17:00 10/10/23 08:57 Celecoxib 200 Mg Capsule PO 200 mg BIDWM HALI Administration Diphenhydramine HCl 25 mg 10/09/23 11:02 Diphenhydramine Hcl Inj 50 Mg/Ml Vial IV PUSH Q6H PRN Itching Enoxaparin Sodium 30 mg 10/10/23 09:00 10/10/23 08:58 Enoxaparin 30 Mg/0.3 Ml Syringe SUB-Q 30 mg Q12HR HALI Administration Famotidine 20 mg 10/09/23 21:00 10/10/23 08:58 Famotidine 20 Mg Tablet PO 20 mg Q12HR HALI Administration Fentanyl Citrate 25 mcg 10/09/23 06:55 10/09/23 14:29 Fentanyl Citrate Inj (*Crx) 100 Mcg/2 Ml Vial IV PUSH 25 mcg Q2M PRN Administration Pain Lactated Ringer's 1,000 mls @ 30 mls/hr 10/09/23 06:55 10/09/23 13:28 Lr - Lactated Ringers Iv IV CONT Infused .Q24H HALI Infusion Losartan Potassium 50 mg 10/09/23 21:00 10/09/23 20:47 Losartan Potassium 50 Mg Tablet PO 50 mg HS HALI Administration Melatonin 5 mg 10/09/23 21:00 10/09/23 20:47 Melatonin 5 Mg Tablet PO 5 mg HS HALI Administration Naloxone HCl 0.1 mg 10/09/23 11:02 Naloxone Hcl 0.4 Mg/Ml Vial IV PUSH Q2M PRN Opiate Reversal Ondansetron HCl 4 mg 10/09/23 06:55 Ondansetron Inj 4 Mg/2 Ml Vial IV PUSH
--- NOTE | 2023-10-10 11:07 | PM.DS ---
DS: Admitting Diagnosis Discharge Date 10/09 Admitting Diagnosis Left knee DJD DS: Discharge Diagnosis Discharge Diagnosis (1) Left knee DJD: Code(s): M17.12 - Unilateral primary osteoarthritis, left knee Status: Acute DS: Summary Hospital Course Hospital Course: 4-year-old female who underwent left total knee arthroplasty on 10/08. Underwent the procedure without complications. Postoperatively she has been afebrile vital signs are stable. Pain is well controlled on scheduled Tylenol, 1000 mg q.6 hours. She also is taking Nucynta every 8 hours as needed. She is taking Celebrex 200 mg twice a day. She is on Lovenox 30 mg b.i.d. for DVT prophylaxis for the 1st 2 weeks. She was up walking the day of surgery and is comfortable overall doing well. Dressing is dry and intact. Neurovascularly she is intact. She will be discharged home on 10/09. We will check a CBC next Friday since she is on Lovenox. Patient was advised to keep leg elevated home prevent swelling but the do her exercises on hourly basis. She was advised any questions or concerns she is to call the office otherwise we will see her at her appointed dates. Labs on postop day 1 were noted and stable. Time Spent with Patient Time attestation: Total time spent providing and/or coordinating discharge services: DS: Data Data Completed and Pending Labs on day of discharge: Labs from last 24 hours 10/10/23 05:30 WBC 15.1 H RBC 3.66 L Hgb 11.3 L Hct 35.8 L MCV 97.8 MCH 30.9 MCHC 31.6 L RDW 13.0 Plt Count 254 MPV 10.1 Immature Gran % (Auto) 0.5 Neut % (Auto) 85.3 H Lymph % (Auto) 4.6 L O'Brien % (Auto) 9.2 H Eos % (Auto) 0.2 Baso % (Auto) 0.2 Lymph # (Auto) 0.69 L O'Brien # (Auto) 1.4 H Eos # (Auto) 0.0 Baso # (Auto) 0.0 Abs Immat Gran (auto) 0.07 H Absolute Neuts (auto) 12.9 H Absolute Nucleated RBC 0.000 Nucleated RBC % 0.0 Sodium 139 Potassium 3.9 Chloride 104 Carbon Dioxide 27 Anion Gap 8 BUN 15 Creatinine 0.90 Estim Creat Clear Calc 58 Estimated GFR > 60 Glucose 123 H Calcium 8.9 Discharge Plan Discharge Patient Disposition: Home, Self-Care Discharge Instructions: NEGIN MOISE M.D [facility] [address] [address] [address] [place] [address] POST-OPERATIVE DISCHARGE INSTRUCTIONS TOTAL KNEE ARTHROPLASTY 1. When resting, do not rest in the chair.When resting, lie on your back, with back flat on the couch or bed, with leg elevated above heart to minimize swelling. You may put a pillow under your head. . Significant swelling could indicate a blood clot and if this occurs call the office (or go to the ER) to have a venous ultrasound. Therefore, do not rest in a chair. 2. At least five times a day spend several minutes stretching your knee into flexion while sitting in the chair and also stretching your knee out straight The abilities to bend your knee fully and straighten your knee fully are two most important knee functions to focus on during your recovery. 3. It is ok to sit in chair to eat, use the toilet and receive a guest and to do your stretching exercises, but, sitting in a chair will cause your leg to swell. Therefore, avoid additional time sitting in the chair. and don't rest in the chair. 4. Wound Care: Nursing will give you an additional Mepilex dressing at the time of discharge. Patient to remove the dressing and apply a new Mepilex dressing at home 7 days after surgery and leave the dressing on until seen in office. It is normal to see a small amount of blood on the silver pad of the Mepilex dressing. Its designed to hold small spots of blood. However, if the blood reaches the edge of the pad up to the boarder of the clear membrane that surrounds the pad, the pad is saturated and the Mepilex dressing should be removed and a new Mepilex dressing should be applied. 5. May shower with a Mepilex dressing in place.The water will run off the
[2023-10-10 12:29] VITALS: BP 134/89; PULSE 90; RESP 18; TEMP 36.2; O2SAT 100
--- NOTE | 2023-10-10 12:58 | P.PNAN_ITS ---
Anes - Prog Note Post-Op Date/Time: 10/10/23 12:58 Cardiovascular status: normal Respiratory status: normal Airway patency: baseline Mental status: baseline Post-Op hydration status: normal Vital Signs: Last Vital Signs Temp 97.1 F L 10/10/23 12:29 Pulse 90 10/10/23 12:29 Resp 18 10/10/23 12:29 BP 134/89 10/10/23 12:29 Pulse Ox 100 10/10/23 12:29 O2 Del Method Room Air 10/10/23 08:00 O2 Flow Rate 2 10/09/23 13:36 Pain Score (VAS): 0/10 I/O: Intake & Output 10/09/23 10/10/23 10/10/23 23:59 07:59 15:59 Intake Total 1390 400 275 Balance 1390 400 275 Laboratory Tests 10/10/23 05:30 10/10/23 05:30 10/10/23 05:30 WBC 15.1 H RBC 3.66 L Hgb 11.3 L Hct 35.8 L MCV 97.8 MCH 30.9 MCHC 31.6 L RDW 13.0 Plt Count 254 MPV 10.1 Immature Gran % (Auto) 0.5 Neut % (Auto) 85.3 H Lymph % (Auto) 4.6 L [place] % (Auto) 9.2 H Eos % (Auto) 0.2 Baso % (Auto) 0.2 Lymph # (Auto) 0.69 L [place] # (Auto) 1.4 H Eos # (Auto) 0.0 Baso # (Auto) 0.0 Abs Immat Gran (auto) 0.07 H Absolute Neuts (auto) 12.9 H Absolute Nucleated RBC 0.000 Nucleated RBC % 0.0 Sodium 139 Potassium 3.9 Chloride 104 Carbon Dioxide 27 Anion Gap 8 BUN 15 Creatinine 0.90 Estim Creat Clear Calc 58 Estimated GFR > 60 Glucose 123 H Calcium 8.9 Post-procedural complaints: none Patient Feedback: Patient satisfied with anesthetic care.
--- NOTE | 2023-10-10 13:29 | PM.IMPN ---
Progress Note: A&P Assessment and Plan (1) Primary osteoarthritis of left knee: Code(s): M17.12 - Unilateral primary osteoarthritis, left knee Status: Acute Assessment and Plan: Underwent a total left knee arthroplasty on 10/09/2023 with Scott VERGARA. - ambulate with assistance and up to chair - use IS - neurovasc checks - see order for intervals - SCDs and TEDs - resume diet - pain management: Tyl p.o. q.6h, Celebrex 200 mg b.i.d., Toradol IVP x3, tapentadol 50 mg p.o. q.8h - zofran PRN for nausea - monitor labs in AM - CBC and BMP - bowel regimen: docusate/senna, polyethylene glycol - PT/OT (2) Hypertension: Code(s): I10 - Essential (primary) hypertension Status: Acute Assessment and Plan: - chronic, currently 114/67 - continue home medications: losartan HS - monitor (3) Migraines: Code(s): G43.909 - Migraine, unspecified, not intractable, without status migrainosus Status: Acute Assessment and Plan: - hold home [id number]-[place], had significant ecchymosis post-previous knee arthroplasty - TYL 1G Q6H prn - adding melatonin to assist with sleep to help with headache resolution Subjective Date/time seen: 10/10/23 13:29 Interval history: patient doing well and pain is well managed. Okay to discharge from hospitalist standpoint. Exam Narrative: GENERAL: Comfortable, no acute distress HENMT: moist mucous membranes EYES: EOM intact b/l NECK: no lymphadenopathy RESPIRATORY: clear to auscultation, no increased respiratory effort CARDIO: Regular rate and rhythm GI: soft, nontender, bowel sounds present SKIN/EXTREMITIES: Small amount of bruising over the left knee, Tegaderm dry and intact NEURO: PROM intact, answers questions appropriately, A&O x4 Objective Data Vital Signs Vital Signs: Vital Signs - 24 hr 10/09/23 13:36 10/09/23 14:29 10/09/23 15:01 Temperature 97.6 F Pulse Rate 110 H 105 H Respiratory Rate 10 L 11 L Blood Pressure 105/58 L 114/67 Pulse Oximetry 94 97 Oxygen Delivery Nasal Cannula Room Air Oxygen Flow Rate 2 10/09/23 16:48 10/09/23 20:48 10/09/23 20:00 Temperature 97 F L 98 F Pulse Rate 102 H 100 Respiratory Rate 12 14 Blood Pressure 120/62 136/80 Pulse Oximetry 98 99 Oxygen Delivery Room Air Oxygen Flow Rate 10/10/23 00:39 10/10/23 04:48 10/10/23 08:04 Temperature 97.3 F L 97.1 F L 97.2 F L Pulse Rate 93 88 86 Respiratory Rate 16 14 16 Blood Pressure 117/72 118/72 108/59 L Pulse Oximetry 95 97 97 Oxygen Delivery Oxygen Flow Rate 10/10/23 08:00 10/10/23 12:29 Temperature 97.1 F L Pulse Rate 90 Respiratory Rate 18 Blood Pressure 134/89 Pulse Oximetry 100 Oxygen Delivery Room Air Oxygen Flow Rate Intake/Output Intake/Output: Intake & Output 10/07/23 10/08/23 10/09/23 10/10/23 23:59 23:59 23:59 23:59 Intake Total 2540 915 Output Total 600 Balance 1940 915 Meds/Results Medications: Active Medications Generic Name Dose Route Start Last Admin Trade Name Freq PRN Reason Stop Dose Admin Acetaminophen 1,000 mg 10/09/23 12:00 10/10/23 05:42 Acetaminophen 500 Mg Tablet PO 1,000 mg Q6H HALI Administration Cefdinir 300 mg 10/10/23 09:00 10/10/23 08:58 Cefdinir 300 Mg Capsule PO 300 mg Q12HR HALI Administration Celecoxib 200 mg 10/09/23 17:00 10/10/23 08:57 Celecoxib 200 Mg Capsule PO 200 mg BIDWM HALI Administration Diphenhydramine HCl 25 mg 10/09/23 11:02 Diphenhydramine Hcl Inj 50 Mg/Ml Vial IV PUSH Q6H PRN Itching Enoxaparin Sodium 30 mg 10/10/23 09:00 10/10/23 08:58 Enoxaparin 30 Mg/0.3 Ml Syringe SUB-Q 30 mg Q12HR HALI Administration Famotidine 20 mg 10/09/23 21:00 10/10/23 08:58 Famotidine 20 Mg Tablet PO 20 mg Q12HR HALI Administration Fentanyl Citrate 25 mcg 10/09/23 06:55 10/09/23 14:29 Fentanyl Citrate Inj (*Crx) 100 Mcg/2 Ml Vial IV
== END 2023-10-10 12:50 | disposition home or self-care (01) ==
LOC: ANHSURGERY 06:00 → ANH3MEDSUR 13:41
PROVIDERS: Physician Assistant Surgical; PCP Family Medicine; Visit Provider Orthopaedic Surgery
PROC: (CPT 27447; principal; 2023-10-09 07:30)
DX: M17.12 Unilateral primary osteoarthritis, left knee (principal); M25.762 Osteophyte, left knee; I10 Essential (primary) hypertension; N80.9 Endometriosis, unspecified; R51.9 Headache, unspecified; F40.240 Claustrophobia; E66.9 Obesity, unspecified; Z68.33 Body mass index [BMI] 33.0-33.9, adult; Z98.890 Other specified postprocedural states
CPT/HCPCS: 27447; 36415; 73560; 78452; 80048; 80307; 82040; 83036; 85025; 86850; 86900; 86901; 87081; 93017; 97110; 97116; 97161; 97165; 97530; 97535; A9270; A9502; C1713; C1776; J0171; J0690; J1100; J1170; J1200; J1650; J1885; J2250; J2371; J2405; J2704; J2785; J2795; J3010; J3370; J7030; J7120

== ENCOUNTER 2023-10-20 14:15 | Outpatient (RCR) | payer BC, SELFPAY ==
--- NOTE | 2023-10-17 13:26 | OPREHPOC ---
Outpatient Therapy Plan of Care This is a Multidisciplinary Plan of Care that may contain components documented by all disciplines (PT, OT, and ST.) PT Problem 1 PT Problem #1 Knowledge Deficit PT Goal 1 Goal 1. Patient will perform independent HEP Target Visit 4 PT Problem 2 PT Problem #2 Pain PT Goal 1 Goal 1. Pain no higher than 3/10 with all activities Target Visit 10 PT Problem 3 PT Problem #3 Impaired Range of Motion PT Goal 1 Goal 1. Improve left flexion to 120 [address] for [address] navigation 2. Improve left extension to 0 actively for gait pattern Target Visit 10 PT Problem 4 PT Problem #4 Impaired Strength PT Goal 1 Goal 1. Left knee extension to 5/5 in order to return to work activities Target Visit 10 PT Problem 5 PT Problem #5 Impaired Functional ADLs PT Goal 1 Goal 1. Patient able to perform all typical work activities 2. Patient able to drive and perform car transfers without limitation Target Visit 10
--- NOTE | 2023-10-17 13:27 | PTOPEVAL1 ---
Assessment and note entered by Kat Williamson DPT Evaluation Information Assessment Status Evaluation Subjective Information Pt is s/p L TKA on 10/09/23. Highest pain 6/10 and lowest 4/10. Currently ambulating with a walker. Pt reports she is independent with dressing and has been doing light activities around the house. 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 Does sit often at work but has help with heavier activities. Has not driven yet. Pt lives in a split level home, has been navigating stairs but not able to do reciprocal pattern yet. Previously patient worked 60+ hours a week, very active. Walked without a device and used reciprocal stair pattern. Patient goal: get my bend back, feel normal Returns to MD on October 21. Reported Pain Level Pain Score 4: Self Report Assessment PT Clinical Summary The patient is presenting to skilled therapy s/p L TKA on 10/09/23. She presents with decreased strength, decreased range of motion (+2 to 80 actively), gait and stair impairments which are contributing to her pain, current walker use, and difficulty returning to all activities including work. She will highly benefit from therapy to address these impairments in order to reduce pain and restore full function. Plan of Care Interventions Electrical Stimulation,Gait Training,Hot Pack/Cold Pack,Manual Therapy,Neuro Re-education,Patient/ Caregiver Education,Therapeutic Activities, Therapeutic Exercise PT Services Indicated Yes Treatment Frequency and 2 times a week for 8 visits Duration These treatments will address the objective and functional deficits as defined above. The patient will be advanced safely and appropriately in order for the patient to progress towards his/her prior level of function. Additional exercises will be introduced and as well as a comprehensive home exercise program upon discharge, if needed, ?to ensure carryover of functional gains achieved in the clinic. This treatment plan has been reviewed and agreement upon by the patient.
--- NOTE | 2023-10-24 11:46 | PCPTNOTE ---
Therapist called patient 10/24/23 as she had called to discharge from therapy. Patient was encouraged to at least schedule a re-evaluation to discuss further HEP, but patient declined as her insurance is about to end and she plans to go back to work next week. States Dr. Chavez is aware and has 2 more follow ups with him.
--- NOTE | 2023-12-11 14:01 | PTOPDC ---
Assessment and note entered by Kat Williamson DPT Evaluation Information Assessment Status Discharge - Pt Not Present Subjective Information - Assessment PT Clinical Summary The patient has self discharged. Reports her surgeon is aware. Plan of Care PT Services Indicated No
== END 2023-12-11 15:32 | disposition home or self-care (01) ==
LOC: ANHPT 14:15
PROVIDERS: PCP Family Medicine; Visit Provider Orthopaedic Surgery
DX: M25.562 Pain in left knee (principal); Z96.652 Presence of left artificial knee joint
CPT/HCPCS: 97110; 97140; 97161; 97530

== ENCOUNTER 2023-11-05 11:54 | Outpatient (CLI) | payer BC, SELFPAY ==
--- NOTE | ~2023-11-05 | US_ITS ---
EXAMINATION: US venous doppler [facility] DATE: 11/05/2023 12:21 INDICATION: Left lower limb localized edema. TECHNIQUE: Grayscale ultrasound images without and with compression and Doppler ultrasound images of the left lower extremity veins were obtained. COMPARISON: None. FINDINGS: The visualized portions of left common femoral vein, profunda (deep) femoral vein, femoral vein, popl iteal vein, peroneal veins, posterior tibial veins, and greater saphenous vein outflow are patent. IMPRESSION: 1. No deep venous thrombosis. Reviewed, dictated and finalized at location A.
== END 2023-11-05 11:55 | disposition home or self-care (01) ==
LOC: ANHIMG 11:55
PROVIDERS: PCP Family Medicine; Visit Provider Physician Assistant Surgical
DX: R60.0 Localized edema (principal); Z96.652 Presence of left artificial knee joint
CPT/HCPCS: 93971

== ENCOUNTER 2023-11-15 10:18 | Outpatient (CLI) | payer BC, SELFPAY ==
--- NOTE | ~2023-11-15 | MM_ITS ---
EXAMINATION: MM screening [facility] BI w mary HISTORY: Screening mammogram TECHNIQUE: Craniocaudal and mediolateral oblique 3-D tomosynthesis images were obtained and synthetic 2-D images were generated. CAD analysis was submitted and interpreted. COMPARISON: 12/28/2021, 06/15/2020 10/02/2018 BREAST PARENCHYMAL COMPOSITION:Not Dense. There are scattered areas of fibroglandular density. FINDINGS: No suspicious mass, calcification, or architectural distortion are identified in either tabatha ast to suggest malignancy. There has been no suspicious interval change. IMPRESSION: No mammographic evidence of malignancy. Recommend routine screening mammography in one year. BI-RADS Category 1: Negative Reviewed, dictated and finalized at location .
== END 2023-11-15 10:19 | disposition home or self-care (01) ==
LOC: ANHIMG 10:19
PROVIDERS: PCP Family Medicine; Visit Provider Nurse Practitioner
DX: Z12.31 Encounter for screening mammogram for malignant neoplasm of breast (principal)
CPT/HCPCS: 77063; 77067

== ENCOUNTER 2024-03-10 14:18 | Outpatient (CLI) | payer OTHER, SELFPAY ==
--- NOTE | ~2024-03-10 | XR_ITS ---
EXAMINATION: XR ankle RT 2V, XR foot RT 2V DATE: 03/10/2024 14:31 INDICATION: Medial right foot and ankle pain TECHNIQUE: 1. Anteroposterior and lateral view of the right ankle were obtained. 2. Dorsoplantar and lateral views of the right foot were obtained. COMPARISON: None. FINDINGS: Alignment of the right foot and ankle is normal. No fracture. Polyarticular osteoarthritis, severe at the talonavicular articulation and mild at the right ankle and many of the remaining joints in the r ight foot. Moderate-sized plantar calcaneal spur and tiny Achilles calcaneal spur. Couple tiny enthes opathic ossicles at the proximal plantar aponeurosis. Soft tissues are unremarkable. No ankle joint e ffusion. The soft tissues are unremarkable. IMPRESSION: 1. 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 Reviewed, dictated and finalized at location A. IMPRESSION: 1. 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
== END 2024-03-10 14:19 | disposition home or self-care (01) ==
LOC: MICIMG 14:20
PROVIDERS: PCP Nurse Practitioner Family; Visit Provider Nurse Practitioner Family
DX: M54.16 Radiculopathy, lumbar region (principal); M19.071 Primary osteoarthritis, right ankle and foot
CPT/HCPCS: 73600; 73620

== ENCOUNTER 2024-04-05 18:10 | Emergency (ER) | payer OTHER, SELFPAY ==
[2024-04-05] VITALS (16 sets, daily range): BP systolic 128–166; BP diastolic 75–92; PULSE 66–88; RESP 12–20; TEMP 36.5; O2SAT 90–100
--- NOTE | ~2024-04-05 | XR_ITS ---
CHEST RADIOGRAPH, PA AND LATERAL CLINICAL HISTORY: chest pain LEFT SIDED WITH INTERMITTENT SHORTNESS . COMPARISON: None available TECHNIQUE: PA and lateral views of the chest. FINDINGS The cardiomediastinal silhouette is unremarkable. The lungs are clear. Visualized osseous structures and soft tissues are unremarkable. IMPRESSION: No focal infiltrate or effusion. Reviewed, dictated and finalized at location A. STOCK COMMISSION AGENT
--- NOTE | 2024-04-05 18:13 | ECG_ITS ---
Test Date: 2024-04-05 18:19:05 Measurements Intervals [place] Rate: 77 P: 60 ME: 158 QRS: -3 QRSD: 69 T: 16 QT: 357 QTc: 406 Interpretive Statements SINUS RHYTHM DELAYED PRECORDIAL R/S TRANSITION LOW QRS VOLTAGE IN PRECORDIAL LEADS BASELINE ARTIFACT- III, AVL BORDERLINE ECG No previous ECG available for comparison Electronically Signed On 04-05-2024 18:55:15 LEARNING ADMINISTRATOR by Camron Franco D.O.
[2024-04-05 18:29] LABS: Basophils Absolute Auto 0.1 K/mm3 (0.0-0.1); Basophils Percent Auto 0.9 % (0.2-1.2); Eosinophils Absolute Auto 0.4 K/mm3 (0-0.3); Eosinophils Percent Auto 5.9 % (0-4.4); Hematocrit 40.9 % (37.0-47.0); Hemoglobin 13.4 g/dL (12.0-15.0); Immature Granulocyte Absolute 0.13 K/mm3 (0.00-0.031); Lymphocytes Absolute Auto 0.61 K/mm3 (0.9-3.2); Lymphocytes Percent Auto 9.2 % (18.3-44.2); Mean Corpuscular HGB Conc 32.8 g/dl (32-36); Mean Corpuscular Hemoglobin 30.7 pg (26-34); Mean Corpuscular Volume 93.6 fl (80-100); Mean Platelet Volume 9.3 fl (7.4-10.4); Monocytes Absolute Auto 0.7 K/mm3 (0.1-0.6); Monocytes Percent Auto 10.4 % (2.6-8.5); Neutrophils Absolute Auto 4.8 K/mm3 (1.3-6.7); Neutrophils Percent Auto 71.6 % (45.5-73.1); Platelet Count Result 293 k/mm3 (150-375); Red Blood Count 4.37 M/mm3 (4.2-5.4); Red Cell Distribution Width 13.6 % (11.5-14.5); White Blood Count 6.6 K/mm3 (4.5-10.0)
[2024-04-05 18:43] LABS: INR 0.9; Prothrombin Time 12.5 Seconds (11.1-14.7)
[2024-04-05 18:44] LABS: Partial Thromboplastin Time 27.5 Seconds (22.3-36.8)
[2024-04-05 18:51] LABS: Alanine Aminotransferase 21 U/L (6-35); Albumin Level 4.4 g/dL (3.5-5.1); Alkaline Phosphatase 102 U/L (38-126); Anion Gap 7 mmol/L (4-12); Aspartate Amino Transferase 22 U/L (14-36); Bilirubin,Total 0.4 mg/dL (0.2-1.3); Blood Urea Nitrogen 27 mg/dL (7-17); Calcium 9.1 mg/dL (8.4-10.2); Carbon Dioxide 31 mmol/L (22-30); Chloride 103 mmol/L (98-107); Estimated CRCL calculation 46 ml/min; Estimated Glomerular Filt Rate 46; Glucose 98 mg/dL (65-110); Lipase 121 U/L (23-300); Potassium 4.3 mmol/L (3.4-5.0); Sodium 141 mmol/L (137-145)
[2024-04-05 18:57] LABS: Troponin I < 0.012 ng/mL (0.000-0.034)
--- NOTE | 2024-04-05 21:33 | ECG_ITS ---
Test Date: 2024-04-05 21:38:49 Measurements Intervals [place] Rate: 62 P: 64 MO: 164 QRS: 7 QRSD: 73 T: 14 QT: 367 QTc: 374 Interpretive Statements SINUS RHYTHM WITH SINUS ARRHYTHMIA LOW QRS VOLTAGE IN PRECORDIAL LEADS BORDERLINE ST ABNORMALITY- INFERIOR LEADS BASELINE ARTIFACT- II, III BORDERLINE ECG Compared to ECG 04/05/2024 18:19:05 NO SIGNIFICANT CHANGE Electronically Signed On 04-06-2024 05:55:21 BRAKE REPAIRER HYDRAULIC by Camron Franco D.O.
[2024-04-05 22:22] LABS: Troponin I < 0.012 ng/mL (0.000-0.034)
--- NOTE | 2024-04-05 23:49 | ED_ITS ---
HPI - Chest Pain General Chief Complaint: Chest Pain Stated Complaint: chest pain Time Seen by Provider: 04/05/24 22:01 History of Present Illness HPI narrative: Patient is a 4-year-old female who presents to the emergency department this evening complaining of some pain to her left neck and shoulder which started a few days ago. Patient called her technical support analyst Dr. Franco and he wanted her to come to the emergency department for further evaluation. Patient admits that she does have mild leaky valves in 3 of her heart valves. She denies any sharp chest pain, denies any shortness of breath or nausea or vomiting. No additional symptoms or concerns at this time. Related Data Home Medications Medication Instructions Recorded Confirmed losartan 50 mg tablet 50 mg PO DAILY 04/24/22 11/14/23 Allergies Allergy/AdvReac Type Severity Reaction Status Date / Time morphine Allergy Mild Hives Verified 04/05/24 18:11 tapentadol [From Nucynta] AdvReac Severe chest pain Verified 04/05/24 18:11 azithromycin AdvReac Intermediate Vomiting Verified 04/05/24 18:11 hydrocodone [From Vicodin] AdvReac Intermediate Vomiting Verified 04/05/24 18:11 methylprednisolone AdvReac Intermediate Vomiting Verified 04/05/24 18:11 [From Medrol] oxycodone AdvReac Intermediate Vomiting Verified 04/05/24 18:11 tramadol AdvReac Intermediate Headache Verified 04/05/24 18:11 Review of Systems Review of Systems: All systems are reviewed and are negative unless stated otherwise in the HPI. [facility] Past Medical History Medical History Back pain Chronic headaches Degenerative arthritis of knee, bilateral Endometriosis History of claustrophobia History of endometrial biopsy (11/12/01) hscope EMB--benign Hypertension Migraines Obesity (BMI 30-39.9) Osteoarthritis Screening mammogram, encounter for Surgical History Surgical History History of foot surgery (~2014) right foot History of hand surgery finger History of knee surgery 07/05/2014 partial meniscectomy--arthroscopy 2016 History of laparoscopy multiple lscopes for endometriosis History of right knee surgery (~10/10/10) History of surgery on wrist (~2014) History of total abdominal hysterectomy and bilateral salpingo-oophorectomy (02/04/02) adhesiolysis--leiomyomata, endometriosis, bicornuate uterus Status post total right knee replacement 12/09/2022 Family History Family History Other Adopted person Social History Social History Smoking status: Never smoker Second hand tobacco smoke exposure: No Additional smoking assessment comments: PT DENIES ALL FORMS OF TOBACCO USE Alcohol intake: never Substance use: never Substance use type: does not use Do You Feel Safe in your Home?: Yes Lack of Transportation: No Lack of Food: Never True Current Housing: I Have Housing Concerned About Future Housing: No Difficulty Paying Gas/Electric Bills: No Difficulty Paying for Meds: No Currently Unemployed: No Education: Decline to Answer Difficulty w/ Childcare or Family Care: No Living arrangements: with family Additional living arrangements comments: Occupation/Education: occupation 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 HEENT: PERRL, no rhinorrhea, no post nasal drip, oropharynx clear. Neck: Trachea midline, no JVD, no lymphadenopathy. Cardiovascular: Regular rate and rhythm, no murmurs, rubs or gallops, no peripheral edema. Respiratory: Clear to auscultation bilaterally, no tachypnea, no wheezing, no rhonchi, no rubs, no respiratory distress. Abdomen: Soft, nontender, nondistended, no rebound, no guarding, no peritoneal signs. Musculoskeletal: No joint swelling or deformity, normal muscle tone. Skin: No rashes or petechia, no signs of infection. Psychiatric: Alert and oriented, normal behavior and judgment for situation. Neurological: Alert and oriented to person, place, and time. Follows all com mands. No focal deficits, speech is clear and fluent. Course Vital Signs Vital signs: Vital Signs Temperature 97.7 F 04/05/24 18:13 Pulse Rate 80 04/05/24 18:13 Respiratory Rate 16 04/05/24 18:13 Blood Pressure 158/88 H 04/05/24 18:13 Pulse Oximetry 97 04/05/24 18:13 Oxygen Delivery Room Air 04/05/24 18:13 Temperature 97.7 F 04/05/24 18:13 Pulse Rate 75 04/05/24 22:06 Respiratory Rate 18 04/05/24 22:00 Blood Pressure 161/75 H 04/05/24 22:00 Pulse Oximetry 97 04/05/24 22:00 Oxygen Delivery Room Air 04/05/24 22:00 MDM - Chest Pain MDM Narrative Medical decision making narrative: The patient was evaluated by myself in the emergency department. History is obtained from patient who is an independent historian and physical exam was performed. External medical records were reviewed at this time. IV was established and pertinent tests were ordered. EKG was obtained which revealed sinus rhythm rate of 77 beats per minute. No ST changes, T wave inversions or evidence of acute ischemia. EKG was independently interpreted by me and is currently pending official cardiology read. Laboratory results obtained revealing no acute process. Two sets of troponins were obtained and both noted to be negative. Imaging studies obtained included CXR which was independently interpreted by me revealing no acute cardiopulmonary process, which is pending final radiology interpretation. Differential diagnosis considerations include musculoskeletal strain, acute viral syndrome, acute stress reaction, infectious process such as pneumonia and acute coronary syndrome. Comorbidities impacting this visit include none. I have evaluated and discussed social determinants of health with the patient that could potentially impact subsequent diagnosis and treatment plans. On repeat assessment of the patient, reevaluation revealed that the patient is doing well and is in no acute distress. Patient symptoms have improved since she arrived to our emergency department. Repeat vital signs were all reviewed and noted to be stable. Differential diagnosis and treatment plan were discussed with the patient at bedside. Patient agrees with discussion and after shared medical decision making agrees with discharge. All questions were answered to the patient's satisfaction. Patient will follow up with her technical support analyst in 3-5 days. Patient was provided with strict return precautions and instructed to return to the emergency department if any new or worsening symptoms develop. The patient was discharged in stable condition. Lab Data 04/05/24 18:23 04/05/24 18:23 Labs: Lab Results 04/05/24 04/05/24 Range/Units 18:23 21:39 WBC 6.6 (4.5-10.0) K/mm3 RBC 4.37 (4.2-5.4) M/mm3 Hgb 13.4 (12.0-15.0) g/dL Hct 40.9 (37.0-47.0) % MCV 93.6 (80-100) fl MCH 30.7 (26-34) pg MCHC 32.8 (32-36) g/dl RDW 13.6 (11.5-14.5) % Plt Count 293 (150-375) k/mm3 MPV 9.3 (7.4-10.4) fl Immature Gran % (Auto) 2.0 H (0-0.5) % Neut % (Auto) 71.6 (45.5-73.1) % Lymph % (Auto) 9.2 L (18.3-44.2) % Traverse % (Auto) 10.4 H (2.6-8.5) % Eos % (Auto) 5.9 H (0-4.4) % Baso % (Auto) 0.9 (0.2-1.2) % Lymph # (Auto) 0.61 L (0.9-3.2) K/mm3 Traverse # (Auto) 0.7 H (0.1-0.6) K/mm3 Eos # (Auto) 0.4 H (0-0.3) K/mm3 Baso # (Auto) 0.1 (0.0-0.1) K/mm3 Abs Immat Gran (auto) 0.13 H (0.00-0.031) K/mm3 Absolute Neuts (auto) 4.8 (1.3-6.7) K/mm3 Absolute Nucleated RBC 0.000 (0.0-0.012) K/mm3 Nucleated RBC % 0.0 (0.0-0.2) % PT 12.5 (11.1-14.7) Seconds INR 0.9 APTT 27.5 (22.3-36.8) Seconds Sodium 141 (137-145) mmol/L Potassium 4.3 (3.4-5.0) mmol/L Chloride 103 (98-107) mmol/L Carbon Dioxide 31 H (22-30) mmol/L Anion Gap 7 (4-12) mmol/L BUN 27 H D (7-17) mg/dL Creatinine 1.20 H (0.7-1.0) mg/dL Estim Creat Clear Calc 46 ml/min Estimated GFR 46 L (59 - ) Glucose 98 (65-110) mg/dL Calcium 9.1 (8.4-10.2) mg/dL Total Bilirubin 0.4 (0.2-1.3) mg/dL AST 22 (14-36) U/L ALT 21 (6-35) U/L Alkaline Phosphatase 102 (38-126) U/L Troponin I < 0.012 < 0.012 (0.000-0.034) ng/mL Total Protein 8.0 (6.3-8.2) g/dL Albumin 4.4 (3.5-5.1) g/dL Lipase 121 (23-300) U/L Discharge Plan Discharge Clinical Impression: Chest pain, Musculoskeletal strain Patient Disposition: Home, Self-Care Condition: Improved Instructions: Antibiotic Form, Chest Pain (ED), Cervical Strain (DC) Additional Instructions: Please follow-up with your technical support analyst within the next 3-5 days. Return to the ED if any new or worsening symptoms develop. Prescriptions: No Action losartan 50 mg tablet 50 mg PO DAILY Patient Comments: HS acetaminophen 500 mg Tablet 1,000 mg PO Q6H Qty: 90 0RF amoxicillin 500 mg capsule 2,000 mg PO ONCE Qty: 4 0RF Rx Instructions: take 4 pills PO 1hr prior to dental procedure Follow-up/Referrals: Alka,Dennis Montelongo MD [Primary Care Provider] - Camron Franco DO [Physician] - 3 Days Time of Disposition: 23:52
== END 2024-04-06 00:09 | disposition home or self-care (01) ==
PROVIDERS: Emergency Medicine; Emergency Provider Emergency Medicine; PCP Family Medicine
DX: S29.011A Strain of muscle and tendon of front wall of thorax, initial encounter (principal); I10 Essential (primary) hypertension; I38 Endocarditis, valve unspecified; E66.9 Obesity, unspecified; Z68.32 Body mass index [BMI] 32.0-32.9, adult; M17.0 Bilateral primary osteoarthritis of knee; Z96.651 Presence of right artificial knee joint; Z90.710 Acquired absence of both cervix and uterus; Z90.79 Acquired absence of other genital organ(s); Z90.722 Acquired absence of ovaries, bilateral; R94.31 Abnormal electrocardiogram [ECG] [EKG]; X58.XXXA Exposure to other specified factors, initial encounter
CPT/HCPCS: 36415; 71046; 80053; 83690; 84484; 85025; 85610; 85730; 93005; 99284

== ENCOUNTER 2024-12-15 12:26 | Outpatient (CLI) | payer OTHER, SELFPAY ==
--- OUTSIDE RECORDS SUMMARY | 2024-12-15 12:28 | XMS_ITS | Encounter Summary ---
Author Organization [facility] Address [address] [place] [address] Care Team Providers Care Lieutenant Ballistics Name Role Phone Mandeep Owens MD Primary Care Provider Encounter Details Date Type Department Care Team (Late st Contact Info) Description 08/17/2007 Orders Only [facility] Internal Medicine Medical [facility] [address] [place] [address] Mandeep Owens MD [address] 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 david CURRENT ALLERGY LIST: MORPHINE PREDNISONE ZITHROMAX PHARMACY NUMBER: PROBLEMS: Patient scheduled appointment with Dr. Serge Pozo at end of August and she has been taking imitrex but still has headaches. They were wondering if there was a test that maybe she could take to make sure nothing else was going on. Was wondering if they can get an order to have blood flow study done...if you thin k they may learn something from that HEADACHE: Patient complains of migraine headache. SECTION 1: DOCTOR`S RESPONSE: gagan 08/17/07 at 01:13 pm reassure her that bad things causing LIVINGSTON (aneurysm, tumor etc) usually not like migraines , so I woiuld let Dr Pozo do any testing. Most of the time with migraines no testing is done, it is all from the history. could start on a preventive medicine now though if she wants. Add imitrex prn. MEDICATIONS: Call in to Pharmacy PROPRANOLOL HCL ORAL TABLET 10 MG, 1 Two Times A Day to prevent headache, 60 Dispensed, 5 Fills, status: NEW PRESCRIPTION, 08/17/2007. FINAL ACTION: bulmaro 08/17/07 at 05:23 pm Left message on patient`s recorder or with a family member 08/17/2007 at 05:23 pm. for a pharmacy # SECTION 2: pt was given midirin to replace advil and headaches are getting bad. She has been on midrin for about a week from the ER here at [facility]. It 1 tab qid for headaches and no help from that. carlosj 08/19/2007 pt called again to the office today because her headaches are still really bad, see above message, pt doesn't have the pharmacy number will have it when we call him back later. CATHY 08/19/07 1610 pt called through the exchange waiting for an answer. nm SECTION 3: DOCTOR`S RESPONSE: gagan 08/19/07 at 04:59 pm MEDICATIONS: PROPRANOLOL HCL ORAL TABLET 10 MG, 1 Two Times A Day to prevent headache, 60 Dispensed, 5 Fills, status: CONTINUED, 08/17/2007. PREDNISONE ORAL TABLET 20 MG, 3 po x 3 days, 2 po x 3 days, 2 po x 3 days, 50 Dispensed, status: NEW PRESCRIPTION, 08/17/2007. FINAL ACTION: obdulio 08/19/07 at 05:28 pm Spoke with patient 08/19/07 at 05:28 pm. spoke to and wanting to be seen. I told him if shecan not handle the headaches she need to go to the er. plz give a date and I will call tomorrow to find out if she went to Er. tsj Come at 4 pm tomorrow. sgs 08-20-07 spoke to pt and will bring her in.@ 10:05a taisha Electronically Signed by: Janiya Holm on August documented in this encounter Plan of Treatment Not on file documented as of this encounter Visit Diagnoses Not on filedocumented in this encounter Care Teams Lieutenant Ballistics Relationship Specialty Start Date End Date Mandeep Owens MD [address] [place] [address] PCP - General 04/26/06 documented as of this encounter
--- OUTSIDE RECORDS SUMMARY | 2024-12-15 12:28 | XMS_ITS | Encounter Summary ---
Author Organization [facility] Address [address] [place] [address] Care Team Providers Care Construction Operations Manager Name Role Phone Mandeep Owens MD Primary Care Provider [phone] Encounter Details Date Type Department Care Team (Late st Contact Info) Description 08/20/2007 Outpatient Historical [facility] Internal Medicine Medical [place] A [facility] [address] [address] Mandeep Owens MD [address] [phone] Social History Tobacco Use Types Packs/Day Years Used Date Smoking Tobacco: Never Assessed Comments Unknown Sex and Gender Information Value Date Recorded Sex Assigned at Not on file 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
--- OUTSIDE RECORDS SUMMARY | 2024-12-15 12:28 | XMS_ITS | Encounter Summary ---
Author Organization [facility] Address [address] [place] [address] Care Team Providers Care Accounting Representative Name Role Phone Mandeep Owens MD Primary Care Provider Encounter Details Date Type Department Care Team (Late st Contact Info) Description 08/20/2007 Outpatient Historical [facility] Internal Medicine Medical [place] A [facility] [address] [address] Mandeep Owens MD [address] [phone] Social History Tobacco Use Types Packs/Day Years Used Date Smoking Tobacco: Never Assessed Comments Unknown Sex and Gender Information Value Date Recorded Sex Assigned at Not on file Legal Sex Female 

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
--- OUTSIDE RECORDS SUMMARY | 2024-12-15 12:28 | XMS_ITS | Encounter Summary ---
Author Organization [facility] Address [address] [place] [address] Care Team Providers Care Regulatory Affairs Consultant Name Role Phone Mandeep Owens MD Primary Care Provider Encounter Details Date Type Department Care Team (Late st Contact Info) Description 03/24/2001 Outpatient Historical [facility] Internal Medicine Medical [place] [facility] [address] [address] Mandeep Owens MD [address] [phone] Social History Tobacco Use Types Packs/Day Years Used Date Smoking Tobacco: Never Assessed Comments Unknown Sex and Gender Information Value Date Recorded Sex Assigned at Not on file 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
--- OUTSIDE RECORDS SUMMARY | 2024-12-15 12:28 | XMS_ITS | Encounter Summary ---
Author Organization [facility] Address [address] [place] [address] Care Team Providers Care Filling Mixer Name Role Phone Mandeep Owens MD Primary Care Provider [phone] Encounter Details Date Type Department Care Team (Late st Contact Info) Description 04/27/2001 Outpatient Historical [facility] Internal Medicine Medical [place] [facility] [address] [address] Mandeep Owens MD [address] [phone] Social History Tobacco Use Types Packs/Day Years Used Date Smoking Tobacco: Never Assessed Comments Unknown Sex and Gender Information Value Date Recorded Sex Assigned at Not on file Legal Sex Female 5:07 AM CODING SPEC Gender Identity Not on file Sexual Orientation Not on file documented as of this encounter Plan of Treatment Not on file documented as of this encounter Visit Diagnoses Not on filedocumented in this encounter Care Teams Filling Mixer Relationship Specialty Start Date End Date Mandeep Owens MD [address] [place] [address], [place] [address] PCP - General 04/26/06 documented as of this encounter
--- OUTSIDE RECORDS SUMMARY | 2024-12-15 12:29 | XMS_ITS | Encounter Summary ---
Author Organization [employer] Address [address] [place] [address] Care Team Providers Care Psychology Associate Name Role Phone Mandeep Owens MD Primary Care Provider Encounter Details Date Type Department Care Team (Late st Contact Info) Description 09/11/2008 Emergency [facility] Er, Authorized P NO ADDRESS ON FILE Jose Angeles Jr., [place] [facility] [place] [address] Painful Respiration; Unspecified Visual Disturbance; Unspecified Asthma Social History Tobacco Use Types Packs/Day Years Used Date Smoking Tobacco: Never Assessed Comments Unknown Sex and Gender Information Value Date Recorded Sex Assigned at Not on file 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 Gender Identity Not on file Sexual Orientation Not on file documented as of this encounter Plan of Treatment Not on file documented as of this encounter Procedures Procedure Name Priority Date/Time Associated Diagnosis Comments XR CHEST PA AND LATERAL 2 VW Routine 09/11/2008 2:20 AM CDT CBC WITH DIFFERENTIAL Stat 09/11/2008 2:16 AM CDT COMPREHENSIVE METABOLIC PANEL Stat 09/11/2008 2:16 AM CDT documented in this encounter Results * XR CHEST PA AND LATERAL (09/11/2008 2:20 AM CDT) Anatomical Region Laterality Modality Chest Other 09/11/2008 2:20 AM CDT Narrative 09/11/2008 2:09 PM CDT [address] [address] Admit Date: 09/11/2008 ERIK DWYER Sex: F Admit Prov: ER, AUTHORIZED P Date: 1965 Primary Care Prov: MANDEEP OWENS CMRN: [id number] Room: ER-A SSN: [id number] IMAGING SERVICES Ordering Prov: N/A Accession Number: [id number] Interpretation CHEST, PA AND LATERAL, 09/11/08 History: Chest pain. Findings: No infiltrate, pleural effusion or pneumothorax is present. Heart size, mediastinum and pulmonary vascularity are normal. IMPRESSION: No active pulmonary disease. . Dictated by: JER KC 09/11/2008 07:28 Electronically signed by: JER KC 09/11/2008 14:09 Transcribed: 09/11/2008 07:38 LE Procedure Note Jer Kc MD - 09/11/[address] [address] Admit Date: 09/11/2008 ERIK DWYER Sex: F Admit Prov: ER, AUTHORIZED P Date: 1965 Primary Care Prov: MANDEEP OWENS CMRN: [id number] [facility]: [id number] IMAGING SERVICES Ordering Prov: N/A Interpretation CHEST, PA AND LATERAL, 09/11/08 History: Chest pain. Findings: No infiltrate, pleural effusion or pneumothorax is present.Heart size, mediastinum and pulmonary vascularity are normal. IMPRESSION: No active pulmonary disease. . Dictated by: JER KC 09/11/2008 07:28 Electronically signed by: JER KC 09/11/2008 14:09 Transcribed: 09/11/2008 07:38 LE Jose Angeles Jr., MD DIAGNOSTIC IMAGING ORDERAB LES Final Result * (ABNORMAL) COMPREHENSIVE METABOLIC PANEL (09/11/2008 2:16 AM CDT) POTASSIUM 3.8 3.5 - 4.9 mmol/L [facility] TOTAL PROTEIN 7.4 6.3 - 8.6 g/dL [facility] GLUCOSE 109(H) 65 - 99 mg/dL [facility] AST 26 12 - 32 U/L [facility] BUN 19 6 - 20 mg/dL [facility] CALCIUM 9.1 8.6 - 10.2 mg/dL [facility] ALBUMIN 4.7 3.4 - 4.8 g/dL [facility] CHLORIDE 104 96 - 108 mmol/L [facility] CREATININE 0.92 0.51 - 0.95 mg/dL [facility] ALT 27 0 - 31 U/L [facility] SODIUM 140 135 - 145 mmol/L [facility] ALKALINE PHOSPHATASE 104 35 - 104 U/L [facility] CO2 28 22 - 30 mmol/L [facility] BILIRUBIN TOTAL 0.3 0.2 - 1.0 mg/dL [facility] GFR, >60 >=60 mL/min/1. 7 sq meter [facility] GFR >60 >=60 mL/min/1. 7 sq meter [facility] Comment: Modification of Diet in Renal Disease (MDRD) study formula. Estimated GFR rate interpretative information for both Americans and non- Americans is available on the [facility] Intranet at: [email or web address] Select: Lab Policies and Procedures Select: Reference Ranges - GFR Blood specimen (specimen) 09/11/2008 2:16 AM CDT 09/11/2008 2:19 AM CDT Jose Angeles Jr., MD CHEMISTRY ORDERABLES Edite d INTERFACE SYSTEM Refer to clinic/hospital department [facility] CLIA# [id number] [address] [place] [address] * CBC WITH DIFFERENTIAL (09/11/2008 2:16 AM CDT) HEMATOCRIT 38.8 35.5 - 44.0 % [facility] RDW-STDEV 43.2 37.1 - 48.7 fL [facility] RBC 4.17 3.90 - 4.90 M/uL [facility] MCHC 33.0 31.5 - 35.5 % [facility] MCV 93.0 82.0 - 99.0 fL [facility] PLATELETS 262 140 - 350 K/uL [facility] HEMOGLOBIN 12.8 11.8 - 14.8 g/dL [facility] RDW 12.7 11.5 - 14.5 % [facility] WBC 8.3 4.0 - 9.8 K/uL [facility] MCH 30.7 27.2 - 32.6 pg [facility] MPV 10.2 9.3 - 12.4 fL [facility] NEUTROPHIL ABSOLUTE 5.18 1.90 - 7.00 K/uL [facility] EOSINOPHILS 3 0 - 7 % [facility] [place] [place] [facility] EOSINOPHIL ABSOLUTE 0.24 0.00 - 0.70 K/uL [facility] LYMPHOCYTES 24 16 - 45 % [facility] [place] [place] [facility] LYMPHOCYTE ABSOLUTE 2.01 0.70 - 4.50 K/uL [facility] BASOPHILS 0 0 - 2 % [facility] BASOPHILS ABSOLUTE 0.03 0.00 - 0.20 K/uL [facility] MONOCYTES 10 3 - 13 % [facility] MONOCYTE ABSOLUTE 0.86 0.10 - 1.30 K/uL [facility] NEUTROPHILS 62 45 - 70 % [facility] [place] [place] [facility] Blood specimen (specimen) 09/11/2008 2:16 AM CDT 09/11/2008 2:19 AM CDT Jose Angeles Jr., MD HEMATOLOGY ORDERABLES Edit ed INTERFACE SYSTEM Refer to clinic/hospital department [facility] CLIA# [id number] [address] [place] [address] documented in this encounter Visit Diagnoses Diagnosis Painful respiration Unspecified visual disturbance Unspecified asthma(493.90) Unspecified asthma documented in this encounter Care Teams Psychology Associate Relationship Specialty Start Date End Date Mandeep Owens MD [address] [facility] [address] [address] PCP - General 04/26/06 documented as of this encounter
--- OUTSIDE RECORDS SUMMARY | 2024-12-15 12:29 | XMS_ITS | Encounter Summary ---
Author Organization [facility] Address [address] [place] [address] Care Team Providers Care Data Recovery Planner Name Role Phone Mandeep Owens MD Primary Care Provider Encounter Details Date Type Department Care Team (Late st Contact Info) Description 01/09/2004 Outpatient Historical [facility] Internal Medicine Medical [place] [facility] [address] [address] Mandeep Owens MD [address] [id number] Social History Tobacco Use Types Packs/Day Years Used Date Smoking Tobacco: Never Assessed Comments Unknown Sex and Gender Information Value Date Recorded Sex Assigned at Not on file 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
--- OUTSIDE RECORDS SUMMARY | 2024-12-15 12:29 | XMS_ITS | Encounter Summary ---
Author Organization [facility] Address [address] [place] [address] Care Team Providers Care Accounts Receivable Analyst Name Role Phone Mandeep Owens MD Primary Care Provider Encounter Details Date Type Department Care Team (Late st Contact Info) Description 03/03/2007 Orders Only [facility] Internal Medicine Medical [place] [facility] [address] [place] [address] Mandeep Owens MD [address] 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 HISTORY: HISTORY: 466.0-BRONCHITIS ACUTE The acute bronchitis has improved. Symptoms of cough have improved, has sinus congestion. No complications noted from the medication presently being used. Still with hoarsenessand cough, better, no fever , feels a lot better. Took prednisone, Zithromax, and used Advair only prn, albuterol helped the most. No hx of asthma CURRENT MEDICATION LIST: IMITREX ORAL TABLET 50 MG, as directed ALBUTEROL INHALATION AEROSOL SOLUTION 90 MCG/ACT, 2 puffs q 2-4 hoursn prn TESSALON ORAL CAPSULE CONVENTIONAL 200 MG, 1 Three Times A Day, As Needed CHERATUSSIN AC ORAL SYRUP 100-10 MG/5ML, 1-2 tsp q 4-6 hrs prn cough ROS: GENERAL: Normal activity and energy level, no change in appetite. No major weight gain or loss. No malaise, chills, fever, diaphoresis. RESPIRATORY: No cough, NOTES MILD WHEEZING. PHYSICAL EXAMINATION: CONSTITUTIONAL: GENERAL APPEARANCE: Healthy appearing patient in no distress. EARS, NOSE, MOUTH AND THROAT: EARS: Tympanic membranes shiny without retraction. Canals unremarkable. Hearing grossly normal. ORAL: Inspection of gums, lips, palate, and teeth normal. No scars, lesions, or masses. Oral mucosaunremarkable with non-inflamed posterior pharynx. RESPIRATORY: MILD EXPIRATORY WHEEZE WITH FORCED EXPIRATION HEARD THROUGHOUT BOTH LUNG SAUER. CARDIOVASCULAR: LYMPHATICS: No lymphadenopathy in the neck, no supraclavicular lymphadenopathy noted. GASTROINTESTINAL: ABDOMEN: Soft, non-tender, without masses. Bowel sounds active. LIVER/SPLEEN/KIDNEY: No hepatosplenomegaly, tenderness or nodularity. Kidneys not palpable. ASSESSMENT/PLAN: 466.0-BRONCHITIS ACUTE ASSESSMENT: Likely has a bronchitic RAD resolving, still symptomatic so will fill the Advair for one month. if sx persist, will rx as chronic asthma. MEDICATIONS: ADVAIR DISKUS INHALATION MISCELLANEOUS 250-50 MCG/DOSE, 1 dose INH bid, 1 Dispensed, status: NEW PRESCRIPTION, 03/03/2007. RETURN VISIT : Patient instructed to return in 3 months. Electronically Signed by: Mandeep Owens MD on February documented in this encounter Plan of Treatment Not on file documented as of this encounter Visit Diagnoses Not on filedocumented in this encounter Care Teams Accounts Receivable Analyst Relationship Specialty Start Date End Date Mandeep Owens MD [address] [place], [place] [address] [place] [address] PCP - General 04/26/06 documented as of this encounter
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
--- OUTSIDE RECORDS SUMMARY | 2024-12-15 12:29 | XMS_ITS | Encounter Summary ---
Author Organization [facility] Address [address] [place] [address] Care Team Providers Care Controller Instructor Name Role Phone Mandeep Owens MD Primary Care Provider Encounter Details Date Type Department Care Team (Latest Contact Info) Description 05/16/[address] [facility] Internal Medicine Medical [facility] 189 [address] [facility] [address] [facility] [place] [address] Mandeep Owens MD [address] 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 Gender Identity Not on file Sexual Orientation Not on file documented as of this encounter Plan of Treatment Not on file documented as of this encounter Procedures Procedure Name Priority Date/Time Associated Diagnosis Comments SOURCE, FLUID Routine 05/16/2006 5:58 PM TEACHER ADVISOR CELL COUNT WITH DIFFERENTIAL, BODY FLUID Routine 05/16/2006 5:58 PM TEACHER ADVISOR documented in this encounter Results * SOURCE, FLUID (05/16/2006 5:58 PM TEACHER ADVISOR) SOURCE FLUID Elbow, Left INTERFACE SYSTEM 05/16/2006 5:58 PM TEACHER ADVISOR us Mandeep Owens MD HEMATOLOGY ORDERABLES Final Result INTERFACE SYSTEM Refer to clinic/hospital department * CELL COUNT WITH DIFFERENTIAL, BODY FLUID (05/16/2006 5:58 PM TEACHER ADVISOR) WBC, FLD 8,623 /uL INTERFACE SYSTEM RBC, FLD 110,000 /uL INTERFACE SYSTEM NEUTROPHILS, FLD 55 % INTERFACE SYSTEM LYMPHOCYTE, FLD 13 % INTERFACE SYSTEM MACROPHAGE, FLD 30 % INTERFACE SYSTEM EOSINOPHIL, FLD 2 % INTERFACE SYSTEM CELLS COUNTED, FLD 100 WBC Counted INTERFACE SYSTEM 05/16/2006 5:58 PM TEACHER ADVISOR us Mandeep Owens MD BODY FLUIDS AND STOOLS Ayesha l Result Performing Organization Address [facility] de Phone Number INTERFACE SYSTEM Refer to clinic/hospital department documented in this encounter Visit Diagnoses Diagnosis Olecranon bursitis- Primary documented in this encounter Care Teams Controller Instructor Relationship Specialty Start Date End Date Mandeep Owens MD [address] [place] [address] PCP - General 04/26/06 documented as of this encounter
--- OUTSIDE RECORDS SUMMARY | 2024-12-15 12:29 | XMS_ITS | Encounter Summary ---
Author Organization [facility] Address [address] [place] [address] Care Team Providers Care Dough Puncher Name Role Phone Mandeep Owens MD Primary Care Provider Encounter Details Date Type Department Care Team (Late st Contact Info) Description 02/11/2007 Orders Only [facility] Internal Medicine Medical [facility] [address] [place] [address] Mandeep Owens MD [address] 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 LAST VISIT: 02.09.07 ALTERNATIVE PHONE NUMBER: [phone] WHO CALLED: Patient`s spouse called.Aleksandar CURRENT ALLERGY LIST: ZITHROMAX PROBLEMS: was seen by [facility] on friday , was given inhalers and cough med , but still coughing , worse when sitting , better when standing , was told that she should be better within a few days, non prodcough , chest is hurting b/c she is coughing SECTION 1: DOCTOR`S RESPONSE: gagan 02/11/07 at 01:38 pm MEDICATIONS: Call in to Pharmacy PREDNISONE ORAL TABLET 20 MG, 2 Every Day for bronchitis, 10 Dispensed, status: NEW PRESCRIPTION, 02/11/2007. CHERATUSSIN AC ORAL SYRUP 100-10 MG/5ML FLUIDOUNCES, 1-2 tsp q 4-6 hrs prn cough, 8 Dispensed, status: NEW PRESCRIPTION, 02/11/2007. this is stronger than the dariussalon FINAL ACTION: umajr 02/11/07 at 02:45 pm Left message on patient`s recorder or with a family member 02/11/2007 at 02:49 pm. / batool Called pharmacy at 02/11/07 at 03:51 pm. [phone] ADDITIONAL COMMENTS: spoke w/ gave above instructions ..../cjl Electronically Signed by: Luz Marina Marlow on Friday, February 11, 2007 documented in this encounter Plan of Treatment Not on file documented as of this encounter Visit Diagnoses Not on filedocumented in this encounter Care Teams Dough Puncher Relationship Specialty Start Date End Date Mandeep Owens MD [address] [place] [address] PCP - General 04/26/06 documented as of this encounter
--- OUTSIDE RECORDS SUMMARY | 2024-12-15 12:29 | XMS_ITS | Encounter Summary ---
Author Organization [facility] Address [address] [place] [address] Care Team Providers Care Paper Cone Maker Name Role Phone Mandeep Owens MD Primary Care Provider Encounter Details Date Type Department Care Team (Late st Contact Info) Description 02/09/2007 Orders Only [facility] Internal Medicine Medical [place] [facility] [address] [facility] [address] [address] Tamiko Sosa MD [address] [facility] [address] [place] [address] Social History Tobacco Use Types Packs/Day Years Used Date Smoking Tobacco: Never Assessed Comments Unknown Sex and Gender Information Value Date Recorded Sex Assigned at Not on file 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 MEDICATIONS: Medication list current. CHIEF COMPLAINT Patient complains of cough. HISTORY: HISTORY OF PRESENT ILLNESS: UPPER RESPIRATORY: The upper respiratory symptoms began months ago. Symptoms include a nonproductive cough, symptoms include fever, has symptoms of chest congestion, symptoms include hoarseness. Therapies tried include coughing medication. CURRENT PROBLEM LIST: 346.11 MIGRAINE 726.33 OLECRANON BURSITIS CURRENT MEDICATION LIST: IMITREX ORAL TABLET 50 MG, as directed CURRENT ALLERGY LIST: ZITHROMAX ROS: ALLERGIC/IMMUNOLOGIC: HAS ALLERGIC RHINITIS. ENDOCRINE: INCREASED THIRST. GI: No complaints of heartburn. SOCIAL HISTORY: TOBACCO USE: Has no significant smoking history. PHYSICAL EXAMINATION: CONSTITUTIONAL: GENERAL APPEARANCE: Healthy appearing patient in no distress. EARS, NOSE, MOUTH AND THROAT: EARS: Tympanic membranes shiny without retraction. Canals unremarkable. Hearing grossly normal. ORAL: Inspection of gums, lips, palate, and teeth normal. No scars, lesions, or masses. Oral mucosaunremarkable with non-inflamed posterior pharynx. NECK/THYROID: Trachea midline. No thyroid enlargement, tenderness, or mass. No supraclavicular or cervical adenopathy. RESPIRATORY: MILD EXPIRATORY WHEEZE HEARD THROUGHOUT BOTH LUNG SAUER. CARDIOVASCULAR: CARDIAC: Regular rhythm. No murmurs, rubs, or gallops. EDEMA/VARICOSITIES OF EXTREMITIES: No edema or varicosities. PSYCHIATRIC: Judgment appropriate. Oriented. Normal memory. Mood and affect appropriate. ASSESSMENT/PLAN: 466.0-BRONCHITIS ACUTE MEDICATIONS: ADVAIR DISKUS INHALATION MISCELLANEOUS 250-50 MCG/DOSE, 1 dose INH bid, 1 Dispensed, 3 Fills, 1 samples given, status: NEW PRESCRIPTION, 02/09/2007. ALBUTEROL INHALATION AEROSOL SOLUTION 90 MCG/ACT, 2 puffs q 2-4 hoursn prn, 1 Dispensed, 3 Fills, status: NEW PRESCRIPTION, 02/09/2007. TESSALON ORAL CAPSULE CONVENTIONAL 200 MG, 1 Three Times A Day, As Needed, 30 Dispensed, status: NEW PRESCRIPTION, 02/09/2007. RETURN VISIT : Patient instructed to call in a few days if not improving. Electronically Signed by: Tamiko Sosa MD on Friday, February 16, 2007 documented in this encounter Plan of Treatment Not on file documented as of this encounter Visit Diagnoses Not on filedocumented in this encounter Care Teams Paper Cone Maker Relationship Specialty Start Date End Date Mandeep Owens MD [address] [place] [address] PCP - General 04/26/06 documented as of this encounter
--- OUTSIDE RECORDS SUMMARY | 2024-12-15 12:29 | XMS_ITS | Encounter Summary ---
Author Organization [facility] [address] Address 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 Gender Identity Not on file Sexual Orientation Not on file documented as of this encounter Plan of Treatment Not on file documented as of this encounter Procedures Procedure Name Priority Date/Time Associated Diagnosis Comments SOURCE, FLUID Routine 04/26/2006 1:42 AM TURFGRASS TECHNICIAN SYNOVIAL FLUID CRYSTAL Routine 04/26/2006 1:42 AM TURFGRASS TECHNICIAN CELL COUNT WITH DIFFERENTIAL, BODY FLUID Routine 04/26/2006 1:42 AM TURFGRASS TECHNICIAN documented in this encounter Results * SOURCE, FLUID (04/26/2006 1:42 AM TURFGRASS TECHNICIAN) SOURCE FLUID Elbow, Left INTERFACE SYSTEM 04/26/2006 1:42 AM TURFGRASS TECHNICIAN us Guy Mccormick MD HEMATOLOGY ORDERABLES Final Resu lt Performing Organization Address [facility] Phone Number INTERFACE SYSTEM Refer to clinic/hospital department * CELL COUNT WITH DIFFERENTIAL, BODY FLUID (04/26/2006 1:42 AM TURFGRASS TECHNICIAN) NEUTROPHILS, FLD 39 % INTERFACE SYSTEM LYMPHOCYTE, FLD 3 % INTERFACE SYSTEM MACROPHAGE, FLD 58 % INTERFACE SYSTEM CELLS COUNTED, FLD 100 WBC Counted INTERFACE SYSTEM WBC, FLD 240 /uL INTERFACE SYSTEM RBC, FLD 130,000 /uL INTERFACE SYSTEM 04/26/2006 1:42 AM TURFGRASS TECHNICIAN us Guy Mccormick MD BODY FLUIDS AND STOOLS Final Res ult Performing Organization Address [facility] Phone Number INTERFACE SYSTEM Refer to clinic/hospital department * SYNOVIAL FLUID CRYSTAL (04/26/2006 1:42 AM TURFGRASS TECHNICIAN) JOINT FLD CRYSTAL QTY Negative Negative INTERFACE SYSTEM CRYSTALS INTERPRETED BY: Mumtaz Francois MD INTERFACE SYSTEM 04/26/2006 1:42 AM TURFGRASS TECHNICIAN us Guy Mccormick MD BODY FLUIDS AND STOOLS Final Res ult Performing Organization Address [facility] Phone Number INTERFACE SYSTEM Refer to clinic/hospital department documented in this encounter Visit Diagnoses Diagnosis Olecranon bursitis- Primary documented in this encounter Care Teams Protection Manager Relationship Specialty Start Date End Date Mandeep Owens MD [address] [place] [address] PCP - General 04/26/06 documented as of this encounter
--- OUTSIDE RECORDS SUMMARY | 2024-12-15 12:29 | XMS_ITS | Encounter Summary ---
Author Organization [facility] Address [address] [place] [address] Care Team Providers Care Duplicate Maker Name Role Phone Mandeep Owens MD Primary Care Provider [phone] Encounter Details Date Type Department Care Team (Late st Contact Info) Description 05/16/[address] 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
--- OUTSIDE RECORDS SUMMARY | 2024-12-15 12:29 | XMS_ITS | Encounter Summary ---
Author Organization [facility] Address [address] [place] [address] Care Team Providers Care Taker Off Hemp Fiber Name Role Phone Mandeep Owens MD Primary Care Provider Encounter Details Date Type Department Care Team (Late st Contact Info) Description 02/09/2007 Outpatient Historical [facility] Internal Medicine Medical [place] [facility] [address] [facility] [address] [address] Tamiko Sosa MD [address] [facility] [address] [place] [address] Social History Tobacco Use Types Packs/Day Years Used Date Smoking Tobacco: Never Assessed Comments Unknown Sex and Gender Information Value Date Recorded Sex Assigned at Not on file Legal Sex Female 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 Gender Identity Not on file Sexual Orientation Not on file documented as of this encounter Last Filed Vital Signs Vital Sign Reading Time Taken Comments Blood Pressure 140/100 02/09/2007 2:15 PM CDT Pulse 64 02/09/2007 2:15 PM CDT Temperature 36.8 C (98.2 F) 02/09/2007 2:15 PM CDT Respiratory Rate - - Oxygen Saturation - - Inhaled Oxygen Concentration - - Weight 77.6 kg (171 lb) 02/09/2007 2:15 PM CDT Height - - Body Mass Index - - documented in this encounter Plan of Treatment Not on file documented as of this encounter Visit Diagnoses Not on filedocumented in this encounter Care Teams Taker Off Hemp Fiber Relationship Specialty Start Date End Date Mandeep Owens MD [address] [place] [address] PCP - General 04/26/06 documented as of this encounter
--- OUTSIDE RECORDS SUMMARY | 2024-12-15 12:29 | XMS_ITS | Encounter Summary ---
Author Organization [facility] Address 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 Gender Identity Not on file Sexual Orientation Not on file documented as of this encounter Plan of Treatment Not on file documented as of this encounter Procedures Procedure Name Priority Date/Time Associated Diagnosis Comments MRI BRAIN W WO CONTRAST Routine 09/02/2007 3:37 PM CDT documented in this encounter Results * MRI BRAIN W WO CONTRAST (09/02/2007 3:37 PM CDT) Anatomical Region Laterality Modality Head Other 09/02/2007 3:37 PM CDT Narrative 09/02/2007 7:00 PM CDT [facility] [address] [place] [address] Admit Date: 09/02/2007 ERIK DWYER Sex: F Admit Prov: DOROTHY JONES Date: 1965 Primary Care Prov: MANDEEP OWENS CMRN: [id number] Room: [facility]: [id number] IMAGING SERVICES Ordering Prov: N/A Accession Number: [id number] Interpretation MR IMAGING BRAIN WITH AND WITHOUT IV CONTRAST, 09/02/2007 History: Constant headaches for the past several weeks, some severe. Findings: Ventricular system of the brain is midline without shift, dilatation or mass effect. No intracranial mass, hemorrhage or infarct is seen. No diffusion abnormalities are identified. No recent or remote hemorrhage is evident. Normal flow-void is evident in the cerebral vessels visualized. After contrast administration there is no abnormal enhancement. Paranasal sinuses appear normal. Impression: Negative exam. . Dictated by: SEFERINO GUTIERREZ 09/02/2007 18:31 Electronically signed by: SEFERINO GUTIERREZ 09/02/2007 19:00 Transcribed: 09/02/2007 18:35 SMM Procedure Note Provider, Historical - 09/02/2007 [facility] [address] [place], [place] [address] Admit Date: 09/02/2007 ERIK DWYER Sex: F Admit Prov: DOROTHY JONES Date: 1965 Primary Care Prov: MANDEEP OWENS CMRN: [id number] [id number] Ordering Prov: N/A Interpretation MR IMAGING BRAIN WITH AND WITHOUT IV CONTRAST, 09/02/2007 History: Constant headaches for the past several weeks, somesevere. Findings: Ventricular system of the brain is midline without shift, dilatationor mass effect. No intracranial mass, hemorrhage or infarct is seen.No diffusion abnormalities are identified. No recent or remotehemorrhage is evident. Normal flow-void is evident in the cerebral vesselsvisualized. After contrast administration there is no abnormal enhancement.Paranasal sinuses appear normal. Impression: Negative exam. . Dictated by: SEFERINO GUTIERREZ 09/02/2007 18:31 Electronically signed by: SEFERINO GUTIERREZ 09/02/2007 19:00 Transcribed: 09/02/2007 18:35 SMM Dorothy Jones MD MR ORDERABLES Final Result documented in this encounter Visit Diagnoses Diagnosis Headache(784.0) Headache documented in this encounter Care Teams Parks Recreation Coordinator Relationship Specialty Start Date End Date Mandeep Owens MD [address] [place] [address] PCP - General 04/26/06 documented as of this encounter
--- OUTSIDE RECORDS SUMMARY | 2024-12-15 12:29 | XMS_ITS | Encounter Summary ---
Author Organization [facility] Address 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
--- OUTSIDE RECORDS SUMMARY | 2024-12-15 12:29 | XMS_ITS | Encounter Summary ---
Author Organization [facility] Address [address] [place] [address] Care Team Providers Care Application Administrator Name Role Phone Mandeep Owens MD Primary Care Provider Encounter Details Date Type Department Care Team (Late st Contact Info) Description 05/16/2006 Outpatient Historical [facility] Internal Medicine Medical [place] [facility] [address] [address] Mandeep Owens MD [address] [phone] Social History Tobacco Use Types Packs/Day Years Used Date Smoking Tobacco: Never Assessed Comments Unknown Sex and Gender Information Value Date Recorded Sex Assigned at Not on file Legal Sex Female 5:07 AM 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
--- OUTSIDE RECORDS SUMMARY | 2024-12-15 12:29 | XMS_ITS | Encounter Summary ---
Author Organization [employer] Address [address] [place] [address] Care Team Providers Care Instant Potato Processing Supervisor Name Role Phone Mandeep Owens MD Primary Care Provider Encounter Details Date Type Department Care Team (Late st Contact Info) Description 10/12/2006 Emergency [facility] Tonio Quinn Er, Authorized P NO ADDRESS ON FILE Unspecified Migraine without Mention of Intractable Migraine (Primary Dx) Social History Tobacco Use Types Packs/Day Years Used Date Smoking Tobacco: Never Assessed Comments Unknown Sex and Gender Information Value Date Recorded Sex Assigned at Not on file Legal Sex Female 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 Gender Identity Not on file Sexual Orientation Not on file documented as of this encounter Plan of Treatment Not on file documented as of this encounter Procedures Procedure Name Priority Date/Time Associated Diagnosis Comments URINALYSIS WITH MICROSCOPIC Routine 10/12/2006 3:49 PM CDT BASIC METABOLIC PANEL Routine 10/12/2006 3:16 PM CDT documented in this encounter Results * (ABNORMAL) URINALYSIS WITH MICROSCOPIC (10/12/2006 3:49 PM CDT) COLOR UA Pale Yellow INTERFAC E SYSTEM CLARITY UA Cloudy(A) Clear INTERFACE SYSTEM SPECIFIC GRAVITY UA 1.015 1.001 - 1.035 INTERFACE SYSTEM PH UA 7.5 5.0 - 8.0 INTERFACE SYSTEM LEUKOCYTE ESTERASE UA 2+(A) Negative INTERFACE SYSTEM NITRITE UA Negative Negative INTERFACE SYSTEM PROTEIN UA Negative Negative INTERFACE SYSTEM GLUCOSE UA Trace(A) Negative INTERFACE SYSTEM KETONES UA Negative Negative INTERFACE SYSTEM UROBILINOGEN UA <1 <=1 mg/dL INTE RFACE SYSTEM BILIRUBIN UA Negative Negative INTERFA CE SYSTEM BLOOD UA Negative Negative INTERFACE SYSTEM WBC UA 6(H) 0 - 5 /HPF INTERFACE SYSTEM RBC UA 3 0 - 4 /HPF INTERFACE SYSTEM BACTERIA UA 1+(A) None Seen /HPF INTERFACE SYSTEM EPITHELIAL CELLS, URINE 0-2 /HPF INTERFACE SYSTEM AMORPHOUS CRYSTAL Moderate /HPF INTERFACE SYSTEM 10/12/2006 3:49 PM CDT [facility] URINE ORDERABLES Edited Performing Organization Address [facility] de Phone Number INTERFACE SYSTEM Refer to clinic/hospital department * (ABNORMAL) BASIC METABOLIC PANEL (10/12/2006 3:16 PM CDT) GLUCOSE 103(H) 65 - 99 mg/dL INTERFACE SYSTEM CREATININE 0.92 0.51 - 0.95 mg/dL INTERFACE SYSTEM CALCIUM 9.0 8.4 - 10.2 mg/dL INTERFACE SYSTEM BUN 14 6 - 20 mg/dL INTERFACE SYSTEM SODIUM 142 135 - 145 mmol/L INTERFACE SYSTEM POTASSIUM 3.6 3.5 - 4.9 mmol/L INTERFACE SYSTEM CHLORIDE 102 96 - 108 mmol/L INTERFACE SYSTEM CO2 31(H) 22 - 30 mmol/L INTERFACE SYSTEM GFR, >60 >=60 mL/min/1. 7 sq meter INTERFACE SYSTEM GFR >60 >=60 mL/min/1. 7 sq meter INTERFACE SYSTEM Comment: Estimated GFR rate interpretative information for both Americans and non- Americans is available on the [facility] Intranet at: [email or web address] Select: Lab Policies and Procedures Select: Reference Ranges - GFR 10/12/2006 3:16 PM CDT [facility] CHEMISTRY ORDERABLES Edited Performing Organization Address [facility] Co de Phone Number INTERFACE SYSTEM Refer to clinic/hospital department documented in this encounter Visit Diagnoses Diagnosis Migraine, unspecified, without mention of intractable migraine without mention of status migrainosus- Primary documented in this encounter Care Teams Instant Potato Processing Supervisor Relationship Specialty Start Date End Date Mandeep Owens MD [address] [place] [address] PCP - General 04/26/06 documented as of this encounter
--- OUTSIDE RECORDS SUMMARY | 2024-12-15 12:29 | XMS_ITS | Encounter Summary ---
Author Organization [facility] Address [address] [place] [address] Care Team Providers Care Commercial Art Instructor Name Role Phone Mandeep Owens MD Primary Care Provider Encounter Details Date Type Department Care Team (Late st Contact Info) Description 02/26/2007 Outpatient Historical [facility] Internal Medicine Medical [place] [facility] [address] [facility] [address] [place] [address] Manjinder Trejo MD [address] [facility] 

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
--- OUTSIDE RECORDS SUMMARY | 2024-12-15 12:29 | XMS_ITS | Encounter Summary ---
Author Organization [facility] Address [address] [place] [address] Care Team Providers Care Analysis Director Name Role Phone Mandeep Owens MD Primary Care Provider [phone] Encounter Details Date Type Department Care Team (Late st Contact Info) Description 06/26/2007 Orders Only [facility] Internal Medicine Medical [facility] [address] [place] [address] Mandeep Owens MD [address] 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 pt states that she is on 25mg of imitrex and not 50 that is in her chart. would like to know if we can call out the 50 because she was calling to seeif we could increase it. has been having a migraine for a few days. tsj SECTION 1: DOCTOR`S RESPONSE: gagan 06/26/07 at 03:03 pm MEDICATIONS: Call in to Pharmacy IMITREX ORAL TABLET 50 MG, at onset of [place], 9 Dispensed, 5 Fills, status: NEW PRESCRIPTION, 06/26/2007. september disp day supply FINAL ACTION: niranjan 06/26/07 at 04:39 pm Left message on patient`s recorder or with a family member 06/26/2007 at 04:39 pm. Called pharmacy at 06/26/07 at 04:39 pm. Electronically Signed by: Jessica Burr on Tuesday, June 26, 2007 documented in this encounter Plan of Treatment Not on file documented as of this encounter Visit Diagnoses Not on filedocumented in this encounter Care Teams Analysis Director Relationship Specialty Start Date End Date Mandeep Owens MD [address] [place] [address] PCP - General 04/26/06 documented as of this encounter
--- OUTSIDE RECORDS SUMMARY | 2024-12-15 12:29 | XMS_ITS | Patient Health Record ---
Author Organization [employer] Address [address] [facility] [address] [place] [address] Care Team Providers Care Director Paid Media Name Role Phone Manuel Marx MD Primary Care Provider Unavailab asiya Oj Ross Unavailable [phone] Reason For Referral No Information Problems Problem Type SNOMED Code ICD Code Onset Dates Problem Status W/U Status Risk Notes Problem [id number] Diverticulosis o f large intestine without perforation or abscess without bleeding (K57.30) Active confirmed Plan Of Treatment No Information Insurance Providers Payer Name Payer Address Payer Phone Subscriber Number Group Number Insured Name Patient Relationship to Insured Coverage Start Date Coverage End Date Blue Access Choice PPO E2 [address] [place] [phone] [id number] Enrrique Dwyer Spouse - patient is the spouse of the insured
--- OUTSIDE RECORDS SUMMARY | 2024-12-15 12:29 | XMS_ITS | Encounter Summary ---
Author Organization [facility] Address [address] [place] [address] Care Team Providers Care Oil Field Pipeline Supervisor Name Role Phone Mandeep Owens MD Primary Care Provider Encounter Details Date Type Department Care Team (Late st Contact Info) Description 05/07/2008 Emergency [facility] Er, Authorized P NO ADDRESS ON FILE Tonio Dougherty MD NO ADDRESS ON FILE Sprain and Strain of Unspecified Site of Foot; Excessive Physical Exertion from Prolonged Activity; Place of Occurrence, Industrial Places and Premises Social History Tobacco Use Types Packs/Day Years Used Date Smoking Tobacco: Never Assessed Comments Unknown Sex and Gender Information Value Date Recorded Sex Assigned at Not on file Legal Sex Female 5:07 AM FLOOR MANAGER Gender Identity Not on file Sexual Orientation Not on file documented as of this encounter Plan of Treatment Not on file documented as of this encounter Procedures Procedure Name Priority Date/Time Associated Diagnosis Comments XR FOOT 3+ VW RIGHT Routine 05/07/2008 3 :25 PM FLOOR MANAGER XR ANKLE 3+ VW RIGHT Routine 05/07/2008 3:25 PM FLOOR MANAGER documented in this encounter Results * XR FOOT 3+ VW RIGHT (05/07/2008 3:25 PM FLOOR MANAGER) Anatomical Region Laterality Modality Ankle / Foot Other 05/07/2008 3:25 PM FLOOR MANAGER Narrative 05/07/2008 3:43 PM FLOOR MANAGER [facility] [address] [place], [place] [address] Admit Date: 05/07/2008 ERIK DWYER Sex: F Admit Prov: ER, AUTHORIZED P Date: 1965 Primary Care Prov: MANDEEP OWENS CMRN: [id number] [facility] [id number] IMAGING SERVICES Ordering Prov: N/A Accession Number: [id number] Interpretation Right foot 3 views 05/07/08. Clinical History: Pain. Findings: There is no fracture, dislocation, abnormal bone production or destruction. There are plantar calcaneal spurs. The soft tissues are normal. Impression: Calcaneal spurs. . Dictated by: CAROLYN PARIKH 05/07/2008 15:40 Electronically signed by: CAROLYN PARIKH 05/07/2008 15:41 Procedure Note Carolyn Parikh MD - 05/07/2008 [facility] [address] [place], [place] [address] Admit Date: 05/07/2008 ERIK DWYER Sex: F Admit Prov: ER, AUTHORIZED P Date: 1965 Primary Care Prov: MANDEEP OWENS CMRN: [id number] Room: [facility] SSN: [id number] IMAGING SERVICES Ordering Prov: N/A Interpretation Right foot 3 views 05/07/08. Clinical History: Pain. Findings: There is no fracture, dislocation, abnormal bone productionor destruction. There are plantar calcaneal spurs. The soft tissuesare normal. Impression: Calcaneal spurs. . Dictated by: CAROLYN PARIKH 05/07/2008 15:40 Electronically signed by: CAROLYN PARIKH 05/07/2008 15:41 Tonio Dougherty MD DIAGNOSTIC IMAGING ORDE EDMAR Final Result * XR ANKLE 3+ VW RIGHT (05/07/2008 3:25 PM FLOOR MANAGER) Anatomical Region Laterality Modality Ankle / Foot Other 05/07/2008 3:25 PM FLOOR MANAGER Narrative 05/07/2008 3:42 PM FLOOR MANAGER [place] [address] [place] [address] Admit Date: 05/07/2008 ERIK DWYER Sex: F Admit Prov: ER, AUTHORIZED P Date: 1965 Primary Care Prov: MANDEEP OWENS CMRN: [id number] [facility] N: [id number] IMAGING SERVICES Ordering Prov: N/A Accession Number: [id number] Interpretation Right ankle 3 views 05/07/08. Clinical History: Pain. Findings: There is no fracture, dislocation, abnormal bone production or destruction. The ankle mortise is intact. Impression: Negative. . Dictated by: CAROLYN PARIKH 05/07/2008 15:40 Electronically signed by: CAROLYN PARIKH 05/07/2008 15:40 Procedure Note Carolyn Parikh MD - 05/07/2008 [place] [address] [address] [place], [place] [address] Admit Date: 05/07/2008 ERIK DWYER Sex: F Admit Prov: ER, AUTHORIZED P Date: 1965 Primary Care Prov: MANDEEP OWENS CMRN: [id number] [facility] N: [id number] IMAGING SERVICES Ordering Prov: N/A Interpretation Right ankle 3 views 05/07/08. Clinical History: Pain. Findings: There is no fracture, dislocation, abnormal bone productionor destruction. The ankle mortise is intact. Impression: Negative. . Dictated by: CAROLYN PARIKH 05/07/2008 15:40 Electronically signed by: CAROLYN PARIKH 05/07/2008 15:40 Tonio Dougherty MD DIAGNOSTIC IMAGING ORDColleen HYATT Final Result documented in this encounter Visit Diagnoses Diagnosis Sprain of foot, unspecified site Excessive physical exertion from prolonged activity Place of occurrence, industrial places and premises documented in this encounter Care Teams Oil Field Pipeline Supervisor Relationship Specialty Start Date End Date Mandeep Owens MD [address] [place], [place] [address] [address] PCP - General 04/26/06 documented as of this encounter
--- OUTSIDE RECORDS SUMMARY | 2024-12-15 12:29 | XMS_ITS | Referral Summary ---
Author Organization [facility] Address [address] [place] [address] Care Team Providers Care World Designer Name Role Phone Noé De León MD Unavailable [phone] Dennis Rucker MD Primary Care Provider [phone] Karel Marquez MD Unavailable [phone] Encounters Date Type Department Care Team Description 09/17/2024 Results Follow-Up [facility] Surgery [address] [facility] Floor [address] [place] [address] Karel Marquez MD Surgical pathology from Last 3 Months Allergies Active Allergy Reactions Criticality Noted Date [...] (01/19/2021): Added automatically from request for surgery [id number] Adnexal tenderness 03/10/2020 Current tear of medial [...] Date Multiple joint pain 03/10/2020 03/10/20 20 Immunizations Immunization Administration Dates Next Due Hep A, Adult 12/10/1999,05/22/1999 Social History Tobacco Use Types Packs/Day Years [...] on file Legal Sex Female 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 Gender Identity Not on file Sexual Orientation Not on file Last Filed Vital Signs [...] 09/09/2024 3:40 PM CDT Plan of Treatment Not on file Insurance [facility] CHOICE PLUS [facility] CHOICE PLUS [place] [id number] Care Teams World Designer Relationship Specialty Start Date End Date Dennis Rucker MD [address] [place] [address] PCP - General Family Medicine 08/02/24 Noé [place]ón [place] [address] [place] [address] Consulting Physician Gastroenterology 08/02/24 Karel Marquez MD [phone] [place] [address] Surgeon Colon and Rectal Surgery 08/31/24
--- OUTSIDE RECORDS SUMMARY | 2024-12-15 12:29 | XMS_ITS | Encounter Summary ---
Author Organization [facility] Address [address] [place] [address] Care Team Providers Care Rib Cloth Knitter Name Role Phone Mandeep Owens MD Primary Care Provider Encounter Details Date Type Department Care Team (Late st Contact Info) Description 02/26/2007 Outpatient Historical [facility] Internal Medicine Medical [place] [facility] [address] [facility] [address] [place] [address] Manjinder Trejo MD [address] [facility] [address] [place] [id number] Social History Tobacco Use Types Packs/Day Years Used Date Smoking Tobacco: Never Assessed Comments Unknown Sex and Gender Information Value Date Recorded Sex Assigned at Not on file Legal Sex Female 5:07 AM THERMAL CUTTER HAND Gender Identity Not on file Sexual Orientation Not on file documented as of this encounter Plan of Treatment Not on file documented as of this encounter Visit Diagnoses Not on filedocumented in this encounter Care Teams Rib Cloth Knitter Relationship Specialty Start Date End Date Mandeep Owens MD [address] [facility] [address] [place] [address] PCP - General 04/26/06 documented as of this encounter
--- OUTSIDE RECORDS SUMMARY | 2024-12-15 12:29 | XMS_ITS | Encounter Summary ---
Author Organization [facility] Address [address] [place] [address] Care Team Providers Care Dietetic Assistant Name Role Phone Mandeep Owens MD Primary Care Provider [phone] Encounter Details Date Type Department Care Team (Late st Contact Info) Description 03/03/2007 Outpatient Historical [facility] Internal Medicine Medical [place] [facility] [address] [address] Mandeep Owens MD [address] [id number] Social History Tobacco Use Types Packs/Day Years Used Date Smoking Tobacco: Never Assessed Comments Unknown Sex and Gender Information Value Date Recorded Sex Assigned at Not on file Legal Sex Female 5:07 AM PROJECT ASSISTANT Gender Identity Not on file Sexual Orientation Not on file documented as of this encounter Plan of Treatment Not on file documented as of this encounter Visit Diagnoses Not on filedocumented in this encounter Care Teams Dietetic Assistant Relationship Specialty Start Date End Date Mandeep Owens MD [address] [place] [address] [address] [place] [address] PCP - General 04/26/06 documented as of this encounter
--- NOTE | 2024-12-15 12:44 | ECHO_ITS ---
Patient Info Name: Jessica Dwyer Age: 59 years : 1965 Gender: Female Ht: 63 in Wt: 185 lbs BSA: 1.96 m2 HR: 57 bpm BP: 145 / 85 mmHg Heart Rhythm: Sinus Rhythm Technical Quality: Fair Exam Date: 12/15/2024 12:58 PM Patient Status: O Admit Date: 12/15/2024 Exam Type: CA echo doppler color flow Complete two-dimensional, color flow and Doppler transthoracic echocardiogram is performed. Weaver [place]: Marilyn Parrish Attending Provider: Camron Franco DO Summary 1. Complete two-dimensional, color flow and Doppler transthoracic echocardiogram is performed. 2. Left ventricular chamber dimension is normal. 3. Left ventricular systolic function is hyperdynamic, estimated at >70. 4. The left ventricular diastolic function is normal. 5. E/e' 9 is minimally elevated. 6. Left atrial chamber dimension is mildly enlarged. 7. There is mild aortic valve regurgitation. 8. The mitral valve has a moderately calcified annulus. 9. There is trace tricuspid valve regurgitation. 10. No pulmonary hypertension, estimated pulmonary arterial systolic pressure is 27 mmHg. Left Ventricle E/e' 9 is minimally elevated. Left ventricular chamber dimension is normal. Left ventricular systolic function is hyperdynamic, estimated at >70. The left ventricular diastolic function is normal. Right Ventricle Right ventricular chamber dimension is normal. Right ventricular systolic function is normal and with normal TAPSE 2.7 cm. Left Atria Left atrial chamber dimension is mildly enlarged. Right Atria Right atrial chamber dimension is normal. Aortic Valve The aortic valve is trileaflet. There is no aortic valve stenosis. There is mild aortic valve regurgitation. Pulmonic Valve There is no pulmonic regurgitation. Mitral Valve The mitral valve has a moderately calcified annulus. There is no mitral valve stenosis. There is no mitral valve regurgitation. Tricuspid Valve There is trace tricuspid valve regurgitation. No pulmonary hypertension, estimated pulmonary arterial systolic pressure is 27 mmHg. Pericardium/Pleural There is no pericardial effusion. Inferior Vena Cava Normal inferior vena cava with >50% collapse upon inspiration consistent with normal right atrial pressure, 5 mmHg. Aorta The aortic root size at the sinus of Valsalva is normal. Left Ventricular Outflow Tract Name Value Normal LVOT 2D LVOT Diameter 2.0 cm LVOT Doppler LVOT Peak Velocity 122 cm/s LVOT Peak Gradient 6 mmHg LVOT Mean Gradient 3 mmHg LVOT VTI 26 cm LVOT VTI/AV VTI Ratio 0.8 LVOT Stroke Volume 79 ml LVOT CO 3.3 l/min LVOT CI 1.7 l/min/m2 Pulmonic Valve Name Value Normal RVOT Doppler RVOT Peak Velocity 75 cm/s RVOT Peak Gradient 2 mmHg PV Doppler PV Peak Velocity 98 cm/s PV Peak Gradient 4 mmHg Mitral Valve Name Value Normal MV Diastolic Function MV E Peak Velocity 79 cm/s MV A Peak Velocity 66 cm/s MV E/A 1.2 MV Decel Time (PW) 220 ms MV Annular TDI MV E/e' (Septal) 11.7 MV E/e' (Lateral) 8.1 MV E/e' (Average) 9.9 Tricuspid Valve Name Value Normal TV Regurgitation Doppler TR Peak Velocity 233 cm/s TR Peak Gradient 19 mmHg Estimated PAP/RSVP RA Pressure 5 mmHg <=5 PA Systolic Pressure 27 mmHg <36 RV Systolic Pressure 27 mmHg <36 TV Annular TDI TV Lateral Nafisa s' Velocity 15.2 cm/s >=9.5 Aorta Name Value Normal Ascending Aorta Ao Root Diameter (MM) 3.0 cm Ao Root Diam Index (MM) 1.6 cm/m2 Aortic Valve Name Value Normal AV Doppler AV Peak Velocity 170 cm/s AV Peak Gradient 11 mmHg AV Mean Gradient 6 mmHg AV VTI 34 cm AV Area (Cont Eq VTI) 2.3 cm2 >=3.0 AV Area (Cont Eq Brandon) 2.2 cm2 AV DI (Brandon) 0.72 AV Regurgitation 2D LVOT Area 3.0 cm2 Ventricles Name Value Normal LV Dimensions 2D/MM IVS Diastolic Thickness (2D) 0.7 cm 0.6-1.0 LVID Diastole (2D) 4.7 cm 3.8-5.2 LVIW Diastolic Thickness (2D) 0.7 cm 0.6-0.9 LVID Systole (2D) 2.6 cm 2.2-3.5 LVOT Diameter 2.0 cm LV Mass (2D Cubed) 99.29 g 67.00-162.00 LV Mass Index (2D Cubed) 51 g/m2 43-95 Relative Wall Thickness (2D) 0.28 <=0.42 LV Fractional Shortening/Ejection Fraction 2D/MM LV Fractional Shortening (2D) 44 % 27-45 LV EF (2D Teichholz) 75 % LV Diastolic Volume (4C MOD) 52 ml LV EF (4C MOD) 77 % LV Diastolic Volume (2C MOD) 53 ml LV EF (2C MOD) 68 % LV Diastolic Volume (BP MOD) 53 ml 46-106 LV Diastolic Volume Index (BP MOD) 27 ml/m2 29-61 LV Systolic Volume (BP MOD) 15 ml 14-42 LV Systolic Volume Index (BP MOD) 8 ml/m2 8-24 LV EF (BP MOD) 72 % 54-74 LV Diastolic Length (4C) 7.4 cm LV Systolic Length (4C) 5.5 cm LV Stroke Volume (4C MOD) 40 ml Atria Name Value Normal LA Dimensions LA Dimension (MM) 3.9 cm 2.7-3.8 LA Volume (4C A-L) 64 ml LA Volume (BP A-L) 56 ml RA Dimensions RA Area (4C) 17.3 cm2 <=18.0 Report Signatures
== END 2024-12-15 12:27 | disposition home or self-care (01) ==
LOC: ANHCARD 12:27
PROVIDERS: PCP Family Medicine; Visit Provider Internal Medicine Cardiovascular Disease
DX: I35.1 Nonrheumatic aortic (valve) insufficiency (principal)
CPT/HCPCS: 93306

== ENCOUNTER 2025-01-07 15:04 | Outpatient (CLI) | payer OTHER, SELFPAY ==
--- NOTE | ~2025-01-07 | MM_ITS ---
EXAMINATION: MM screening martha BI w mary HISTORY: Screening TECHNIQUE: Craniocaudal and mediolateral oblique 3-D tomosynthesis images were obtained and synthetic 2-D images were generated. CAD analysis was submitted and interpreted. COMPARISON: Comparison to multiple prior studies sequentially, with oldest reviewed study dated 02/14/2017. BREAST PARENCHYMAL COMPOSITION: Not Dense: The breasts are almost entirely fatty. FINDINGS: There is no evidence of suspicious mass, calcification, or architectural distortion to suggest malignancy in either breast. There has been no suspicious interval change. IMPRESSION: 1. No mammographic evidence of malignancy. 2. Recommend routine screening mammography in one year. BI-RADS Category 1: Negative Reviewed, dictated and finalized at location O.
--- OUTSIDE RECORDS SUMMARY | 2025-01-07 15:08 | XMS_ITS | Encounter Summary ---
Author Organization [email or web address] Address [address] [place] [address] Care Team Providers Care Lab Tech Name Role Phone Mandeep Owens MD Primary Care Provider Encounter Details Date Type Department Care Team (Late st Contact Info) Description 09/11/2008 Emergency [facility] Er, Authorized P NO ADDRESS ON FILE Jose Angeles Jr., MD [facility] [place] [address] Painful Respiration; Unspecified Visual Disturbance; Unspecified Asthma Social History Tobacco Use Types Packs/Day Years Used Date Smoking Tobacco: Never Assessed Comments Unknown Sex and Gender Information Value Date Recorded Sex Assigned at Not on file Legal Sex Female 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 Findings: No infiltrate, pleural effusion or pneumothorax is present. Heart size, mediastinum and pulmonary vascularity are normal. IMPRESSION: No active pulmonary disease. . Dictated by: JER KC 09/11/2008 07:28 Electronically signed by: JER KC 09/11/2008 14:09 Transcribed: 09/11/2008 07:38 LE Procedure Note Jer Kc MD - 09/11/[address] [address] Admit Date: 09/11/2008 ERIK DWYER Sex: F Admit Prov: ER, AUTHORIZED P Date: 1965 Primary Care Prov: MANDEEP OWENS CMRN: [id number] [facility]: [id number] IMAGING SERVICES Ordering Prov: N/A Interpretation CHEST, [...] CDT) POTASSIUM 3.8 3.5 - 4.9 mmol/L [facility] TOTAL PROTEIN 7.4 6.3 - 8.6 g/dL [facility] GLUCOSE 109(H) 65 - 99 mg/dL [facility] AST 26 12 - 32 U/L [facility] BUN 19 6 - 20 mg/dL [facility] CALCIUM 9.1 8.6 - 10.2 mg/dL [facility] ALBUMIN 4.7 3.4 - 4.8 g/dL [facility] CHLORIDE 104 96 - 108 mmol/L [facility] CREATININE 0.92 0.51 - 0.95 mg/dL [facility] ALT 27 0 - 31 U/L [facility] SODIUM 140 135 - 145 mmol/L [facility] ALKALINE PHOSPHATASE 104 35 - 104 U/L [facility] CO2 28 22 - 30 mmol/L [facility] BILIRUBIN TOTAL 0.3 0.2 - 1.0 mg/dL [facility] GFR, >60 >=60 mL/min/1. 7 sq meter [facility] GFR >60 >=60 mL/min/1. 7 sq meter [facility] Comment: Modification of Diet in Renal Disease (MDRD) study formula. Estimated GFR rate interpretative information for both Americans and non- Americans is available on the [facility] Intranet at: [email or web address] Select: Lab Policies and Procedures Select: Reference Ranges - GFR Blood specimen (specimen) 09/11/2008 2:16 AM CDT 09/11/2008 2:19 AM CDT Jose Angeles Jr., MD CHEMISTRY ORDERABLES Edite d INTERFACE SYSTEM Refer to clinic/hospital department [facility] CLIA# [id number] [address] [place] [address] * CBC WITH DIFFERENTIAL (09/11/2008 2:16 AM CDT) HEMATOCRIT 38.8 35.5 - 44.0 % [facility] RDW-STDEV 43.2 37.1 - 48.7 fL [facility] RBC 4.17 3.90 - 4.90 M/uL [facility] MCHC 33.0 31.5 - 35.5 % [facility] MCV 93.0 82.0 - 99.0 fL [facility] PLATELETS 262 140 - 350 K/uL [facility] HEMOGLOBIN 12.8 11.8 - 14.8 g/dL [facility] RDW 12.7 11.5 - 14.5 % [facility] WBC 8.3 4.0 - 9.8 K/uL [facility] MCH 30.7 27.2 - 32.6 pg [facility] MPV 10.2 9.3 - 12.4 fL [facility] NEUTROPHIL ABSOLUTE 5.18 1.90 - 7.00 K/uL [facility] EOSINOPHILS 3 0 - 7 % [facility] EOSINOPHIL ABSOLUTE 0.24 0.00 - 0.70 K/uL [facility] LYMPHOCYTES 24 16 - 45 % [facility] LYMPHOCYTE ABSOLUTE 2.01 0.70 - 4.50 K/uL [facility] BASOPHILS 0 0 - 2 % [facility] BASOPHILS ABSOLUTE 0.03 0.00 - 0.20 K/uL [facility] MONOCYTES 10 3 - 13 % [facility] MONOCYTE ABSOLUTE 0.86 0.10 - 1.30 K/uL [facility] NEUTROPHILS 62 45 - 70 % [facility] Blood specimen (specimen) 09/11/2008 2:16 AM CDT 09/11/2008 2:19 AM CDT Jose Angeles Jr., MD HEMATOLOGY ORDERABLES Edit ed INTERFACE SYSTEM Refer to clinic/hospital department [facility] CLIA# [id number] [address] [place] [address] documented in this encounter Visit Diagnoses Diagnosis Painful respiration Unspecified visual disturbance Unspecified asthma(493.90) Unspecified asthma documented in this encounter Care Teams Lab Tech Relationship Specialty Start Date End Date Mandeep Owens MD [address] [facility] [address] [address] PCP - General 04/26/06 documented as of this encounter
--- OUTSIDE RECORDS SUMMARY | 2025-01-07 15:08 | XMS_ITS | Encounter Summary ---
Author Organization [facility] Address [address] [place] [address] Care Team Providers Care Coconut Cooker Name Role Phone Mandeep Owens MD Primary Care Provider Encounter Details Date Type Department Care Team (Late st Contact Info) Description 08/20/[address] [facility] Internal Medicine Medical [place] [facility] [address] [facility] [address] [place] [address] Mandeep Owens MD [address] 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 HISTORY: HISTORY OF PRESENT ILLNESS: HEADACHE: The [...] on filedocumented in this encounter Care Teams Coconut Cooker Relationship Specialty Start Date End Date Mandeep Owens MD [address] [place] [address] PCP - General 04/26/06 documented as of this encounter
--- OUTSIDE RECORDS SUMMARY | 2025-01-07 15:08 | XMS_ITS | Encounter Summary ---
Author Organization [facility] Address [address] [place] [address] Care Team Providers Care Structural Welder Name Role Phone Mandeep Owens MD Primary Care Provider Encounter Details Date Type Department Care Team (Late st Contact Info) Description 05/16/2006 Outpatient Historical [facility] Internal Medicine Medical [place] A [facility] [address] [address] Mandeep Owens MD [address] [phone] Social History Tobacco Use Types Packs/Day Years Used Date Smoking Tobacco: Never Assessed Comments Unknown Sex and Gender Information Value Date Recorded Sex Assigned at Not on file Legal 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
--- OUTSIDE RECORDS SUMMARY | 2025-01-07 15:08 | XMS_ITS | Clinical Summary ---
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 Gender Identity Not on file Sexual Orientation [...] patient's age to complete this topic Insurance [employer] OOS [facility] CHOICE [facility]US [facility] HMO/PPO Address: [address] [address] [place] [address] [facility] CHOICE [facility]US [facility] HMO/PPO Address: [address] [address] [place] [id number] Care Teams Cnc Programmer Relationship Specialty Start Date End Date Dennis Rucker MD [address] [place] [address] PCP - General Family Medicine 08/02/24 Noé [place] [address] [place] [address] Consulting Physician Gastroenterology 08/02/24 Karel Marquez MD [phone] [place] [address] Surgeon Colon and Rectal Surgery 08/31/24
--- OUTSIDE RECORDS SUMMARY | 2025-01-07 15:08 | XMS_ITS | Patient Health Record ---
Author Organization [email or web address] Address [address] [facility] [address] [place] [address] Care Team Providers Care Manager Fast Food Name Role Phone Manuel Marx MD Primary Care Provider Unavailab asiya Oj Ross Unavailable [phone] Reason For Referral No Information Problems Problem Type SNOMED Code ICD Code Onset Dates Problem Status W/U Status Risk Notes Problem [id number] Diverticulosis o f large intestine without perforation or abscess without bleeding (K57.30) Active confirmed Plan Of Treatment No Information Insurance Providers Payer Name Payer Address Payer Phone Subscriber Number Group Number Insured Name Patient Relationship to Insured Coverage Start Date Coverage End Date Blue Access Choice PPO E2 [address] [place] [phone] [id number] Enrrique Dwyer Spouse - patient is the spouse of the insured
--- OUTSIDE RECORDS SUMMARY | 2025-01-07 15:08 | XMS_ITS | Encounter Summary ---
Author Organization [facility] Address [address] [place] [address] Care Team Providers Care Gravity Prospecting Observer Name Role Phone Mandeep Owens MD Primary Care Provider [phone] Encounter Details Date Type Department Care Team (Late st Contact Info) Description 02/09/2007 Orders Only [facility] Internal Medicine Medical [place] A [facility] [address] [facility] [address] [address] Tamiko Sosa MD 39[address] [facility] [address] [place] [address] Social History Tobacco Use Types Packs/Day Years Used Date Smoking Tobacco: Never Assessed Comments Unknown Sex and Gender Information Value Date Recorded Sex Assigned at Not on file Legal Sex Female 5:07 AM STREETCAR MOTORMAN Gender Identity Not on file Sexual Orientation [...] on filedocumented in this encounter Care Teams Gravity Prospecting Observer Relationship Specialty Start Date End Date Mandeep Owesn MD [address] [place] [address] PCP - General 04/26/06 documented as of this encounter
--- OUTSIDE RECORDS SUMMARY | 2025-01-07 15:08 | XMS_ITS | Encounter Summary ---
Author Organization [facility] Address [address] [place] [address] Care Team Providers Care Network Operations Lead Name Role Phone Mandeep Owens MD Primary Care Provider [phone] Encounter Details Date Type Department Care Team (Late st Contact Info) Description 02/26/2007 Outpatient Historical [facility] Internal Medicine Medical [place] A [facility] 189 [address] [facility] [address] [place] [address] Manjinder Trejo MD [address] [facility] [address] [place] [phone] Social History Tobacco Use Types Packs/Day Years Used Date Smoking Tobacco: Never Assessed Comments Unknown Sex and Gender Information Value Date Recorded Sex Assigned at Not on file Legal Sex Female 5:07 AM STUNT MAN Gender Identity Not on file Sexual Orientation Not on file documented as of this encounter Plan of Treatment Not on file documented as of this encounter Visit Diagnoses Not on filedocumented in this encounter Care Teams Network Operations Lead Relationship Specialty Start Date End Date Mandeep Owens MD [address] [facility] [address] [place] [address] PCP - General 04/26/06 documented as of this encounter
--- OUTSIDE RECORDS SUMMARY | 2025-01-07 15:08 | XMS_ITS | Encounter Summary ---
Author Organization [facility] Address [address] [place] [address] Care Team Providers Care Elastic Yarn Twister Helper Name Role Phone Mandeep Owens MD Primary Care Provider [phone] Encounter Details Date Type Department Care Team (Late st Contact Info) Description 03/03/2007 Orders Only [facility] Internal Medicine Medical [place] A [facility] [address] [place] [address] Mandeep Owens MD [address] [facility] [address] [place] [address] Social History Tobacco Use Types Packs/Day Years Used Date Smoking Tobacco: Never Assessed Comments Unknown Sex and Gender Information Value Date Recorded Sex Assigned at Not on file Legal Sex Female 5:07 AM LEAD CASTER Gender Identity Not on file Sexual Orientation [...] on filedocumented in this encounter Care Teams Elastic Yarn Twister Helper Relationship Specialty Start Date End Date Mandeep Owens MD [address] [place] [address] [place] [address] PCP - General 04/26/06 documented as of this encounter
--- OUTSIDE RECORDS SUMMARY | 2025-01-07 15:08 | XMS_ITS | Encounter Summary ---
Author Organization [facility] Address [address] [place] [address] Care Team Providers Care Director Economic Name Role Phone Mandeep Owens MD Primary Care Provider Encounter Details Date Type Department Care Team (Late st Contact Info) Description 04/27/2001 Outpatient Historical [facility] Internal Medicine Medical [place] A [facility] [address] [address] Mandeep Owens MD [address] [phone] Social History Tobacco Use Types Packs/Day Years Used Date Smoking Tobacco: Never Assessed Comments Unknown Sex and Gender Information Value Date Recorded Sex Assigned at Not on file Legal Sex Female 5:07 AM COMPRESSOR OPERATOR Gender Identity Not on file Sexual Orientation Not on file documented as of this encounter Plan of Treatment Not on file documented as of this encounter Visit Diagnoses Not on filedocumented in this encounter Care Teams Director Economic Relationship Specialty Start Date End Date Mandeep Owens MD [address] [place] [address], [place] [address] PCP - General 04/26/06 documented as of this encounter
--- OUTSIDE RECORDS SUMMARY | 2025-01-07 15:08 | XMS_ITS | Encounter Summary ---
Author Organization [facility] Address [address] [place] [address] Care Team Providers Care Osteopathic Medicine Teacher Name Role Phone Mandeep Owens MD Primary Care Provider [phone] Encounter Details Date Type Department Care Team (Late st Contact Info) Description 02/26/2007 Outpatient Historical [facility] Internal Medicine Medical [place] [facility] [address] [facility] [address] [place] [address] Manjinder Trejo MD [address] [facility] [address] [place] [phone] Social History Tobacco Use Types Packs/Day Years Used Date Smoking Tobacco: Never Assessed Comments Unknown Sex and Gender Information Value Date Recorded Sex Assigned at Not on file Legal Sex Female 5:07 AM PIE BOTTOMER Gender Identity Not on file Sexual Orientation Not on file documented as of this encounter Plan of Treatment Not on file documented as of this encounter Visit Diagnoses Not on filedocumented in this encounter Care Teams Osteopathic Medicine Teacher Relationship Specialty Start Date End Date Mandeep Owens MD [address] [facility] [address] [place] [address] PCP - General 04/26/06 documented as of this encounter
--- OUTSIDE RECORDS SUMMARY | 2025-01-07 15:08 | XMS_ITS | Encounter Summary ---
Author Organization [facility] Address [address] [place] [address] Care Team Providers Care Power System Electrical Engineer Name Role Phone Mandeep Owens MD Primary Care Provider Encounter Details Date Type Department Care Team (Late st Contact Info) Description 03/03/2007 Outpatient Historical [facility] Internal Medicine Medical [place] A [facility] [address] [address] Mandeep Owens MD [address] [phone] Social History Tobacco Use Types Packs/Day Years Used Date Smoking Tobacco: Never Assessed Comments Unknown Sex and Gender Information Value Date Recorded Sex Assigned at Not on file Legal Sex Female 5:07 AM TIRE MANAGER Gender Identity Not on file Sexual Orientation Not on file documented as of this encounter Plan of Treatment Not on file documented as of this encounter Visit Diagnoses Not on filedocumented in this encounter Care Teams Power System Electrical Engineer Relationship Specialty Start Date End Date Mandeep Owens MD [address] [place] [address] [address] [place] [address] PCP - General 04/26/06 documented as of this encounter
--- OUTSIDE RECORDS SUMMARY | 2025-01-07 15:08 | XMS_ITS | Encounter Summary ---
Author Organization [facility] Address [address] [place] [address] Care Team Providers Care Die Fitter Name Role Phone Mandeep Owens MD Primary Care Provider Encounter Details Date Type Department Care Team (Late st Contact Info) Description 05/16/2006 Outpatient Historical [facility] Internal Medicine Medical [place] A [facility] [address] [address] Mandeep Owens MD [address] [phone] Social History Tobacco Use Types Packs/Day Years Used Date Smoking Tobacco: Never Assessed Comments Unknown Sex and Gender Information Value Date Recorded Sex Assigned at Not on file Legal Sex Female 5:07 AM EMBEDDED ENGINEER Gender Identity Not on file Sexual Orientation Not on file documented as of this encounter Plan of Treatment Not on file documented as of this encounter Visit Diagnoses Not on filedocumented in this encounter Care Teams Die Fitter Relationship Specialty Start Date End Date Mandeep Owens MD [address] [place] [address] [address] [place] [address] PCP - General 04/26/06 documented as of this encounter
--- OUTSIDE RECORDS SUMMARY | 2025-01-07 15:08 | XMS_ITS | Encounter Summary ---
Author Organization [facility] Address [address] [place] [address] Care Team Providers Care Match Maker Name Role Phone Mandeep Owens MD Primary Care Provider [phone] Encounter Details Date Type Department Care Team (Late st Contact Info) Description 02/11/2007 Orders Only [facility] Internal Medicine Medical [facility] [address] [place] [address] Mandeep Owens MD [address] [facility] [address] [place] [address] Social History Tobacco Use Types Packs/Day Years Used Date Smoking Tobacco: Never Assessed Comments Unknown Sex and Gender Information Value Date Recorded Sex Assigned at Not on file Legal Sex Female 5:07 AM PROCESS CONTROL MANAGER Gender Identity Not on file Sexual Orientation Not on file documented as of this encounter Progress Notes * Mandeep Owens MD - 10/02/2007 6:41 PM CDT TIME:10:40 am PATIENT`S HOME PHONE: PATIENT`S WORK PHONE: PATIENT`S INSURANCE: [employer] WHO TOOK THE CALL: Lucretia Rush R GENERAL INFORMATION PATIENT STATUS: Established Patient. LAST VISIT: 02.09.07 ALTERNATIVE PHONE NUMBER: [phone] WHO CALLED: Patient`s spouse called.Aleksandar CURRENT ALLERGY [...] Called pharmacy at 02/11/07 at 03:51 pm. [phone] ADDITIONAL COMMENTS: spoke w/ gave above instructions ..../cjl Electronically Signed by: Luz Marina Marlow on Friday, February 11, 2007 documented in this encounter Plan of Treatment Not on file documented as of this encounter Visit Diagnoses Not on filedocumented in this encounter Care Teams Match Maker Relationship Specialty Start Date End Date Mandeep Owens MD [address] [place] [address] PCP - General 04/26/06 documented as of this encounter
--- OUTSIDE RECORDS SUMMARY | 2025-01-07 15:08 | XMS_ITS | Encounter Summary ---
Author Organization [facility] Address [address] [place] [address] Care Team Providers Care Heart Doctor Name Role Phone Mandeep Owens MD Primary Care Provider Encounter Details Date Type Department Care Team (Late st Contact Info) Description 08/20/[address] [facility] Internal Medicine Medical [place] A [facility] [address] [address] Mandeep Owens MD [address] [phone] Social History Tobacco Use Types Packs/Day Years Used Date Smoking Tobacco: Never Assessed Comments Unknown Sex and Gender Information Value Date Recorded Sex Assigned at Not on file Legal Sex Female 5:07 AM GUN WELDER Gender Identity Not on file Sexual Orientation Not on file documented as of this encounter Plan of Treatment Not on file documented as of this encounter Visit Diagnoses Not on filedocumented in this encounter Care Teams Heart Doctor Relationship Specialty Start Date End Date Mandeep Owens MD [address] [place] [address], [place] [address] PCP - General 04/26/06 documented as of this encounter
--- OUTSIDE RECORDS SUMMARY | 2025-01-07 15:08 | XMS_ITS | Encounter Summary ---
Author Organization [employer] Address [address] [place] [address] Care Team Providers Care Cake Decorator Name Role Phone Mandeep Owens MD Primary Care Provider Encounter Details Date Type Department Care Team (Late st Contact Info) Description 04/26/2006 Emergency [facility] Guy Mccormick MD [address] [place] [address] Er, Authorized P NO ADDRESS ON FILE Olecranon Bursitis (Primary Dx) Social History Tobacco Use Types Packs/Day Years Used Date Smoking Tobacco: Never Assessed Comments Unknown Sex and Gender Information Value Date Recorded Sex Assigned at Not on file Legal Sex Female 5:07 AM SUGAR REFINERY SUPERVISOR Gender Identity Not on file Sexual Orientation Not on file documented as of this encounter Plan of Treatment Not on file documented as of this encounter Procedures Procedure Name Priority Date/Time Associated Diagnosis Comments SOURCE, FLUID Routine 04/26/2006 1:42 AM SUGAR REFINERY SUPERVISOR SYNOVIAL FLUID CRYSTAL Routine 04/26/2006 1:42 AM SUGAR REFINERY SUPERVISOR CELL COUNT WITH DIFFERENTIAL, BODY FLUID Routine 04/26/2006 1:42 AM SUGAR REFINERY SUPERVISOR documented in this encounter Results * SOURCE, FLUID (04/26/2006 1:42 AM SUGAR REFINERY SUPERVISOR) SOURCE FLUID Elbow, Left INTERFACE SYSTEM 04/26/2006 1:42 AM SUGAR REFINERY SUPERVISOR us Guy Mccormick MD HEMATOLOGY ORDERABLES Final Resu lt Performing Organization Address [facility] Phone Number INTERFACE SYSTEM Refer to clinic/hospital department * CELL COUNT WITH DIFFERENTIAL, BODY FLUID (04/26/2006 1:42 AM SUGAR REFINERY SUPERVISOR) NEUTROPHILS, FLD 39 % INTERFACE SYSTEM LYMPHOCYTE, FLD 3 % INTERFACE SYSTEM MACROPHAGE, FLD 58 % INTERFACE SYSTEM CELLS COUNTED, FLD 100 WBC Counted INTERFACE SYSTEM WBC, FLD 240 /uL INTERFACE SYSTEM RBC, FLD 130,000 /uL INTERFACE SYSTEM 04/26/2006 1:42 AM SUGAR REFINERY SUPERVISOR us Guy Mccormick MD BODY FLUIDS AND STOOLS Final Res ult Performing Organization Address [facility] Phone Number INTERFACE SYSTEM Refer to clinic/hospital department * SYNOVIAL FLUID CRYSTAL (04/26/2006 1:42 AM SUGAR REFINERY SUPERVISOR) JOINT FLD CRYSTAL QTY Negative Negative INTERFACE SYSTEM CRYSTALS INTERPRETED BY: Mumtaz Francois MD INTERFACE SYSTEM 04/26/2006 1:42 AM SUGAR REFINERY SUPERVISOR us Guy Mccormick MD BODY FLUIDS AND STOOLS Final Res ult Performing Organization Address [facility] Phone Number INTERFACE SYSTEM Refer to clinic/hospital department documented in this encounter Visit Diagnoses Diagnosis Olecranon bursitis- Primary documented in this encounter Care Teams Cake Decorator Relationship Specialty Start Date End Date Mandeep Owens MD [address] [place] [address] PCP - General 04/26/06 documented as of this encounter
--- OUTSIDE RECORDS SUMMARY | 2025-01-07 15:08 | XMS_ITS | Encounter Summary ---
Author Organization [facility] Address [address] [place] [address] Care Team Providers Care Guide Travel Name Role Phone Mandeep Owens MD Primary Care Provider Encounter Details Date Type Department Care Team (Late st Contact Info) Description 02/09/2007 Outpatient Historical [facility] Internal Medicine Medical [place] A [facility] [address] [facility] [address] [address] Tamiko Sosa MD 39[address] [facility] [address] [place] [address] Social History Tobacco Use Types Packs/Day Years Used Date Smoking Tobacco: Never Assessed Comments Unknown Sex and Gender Information Value Date Recorded Sex Assigned at Not on file Legal Sex Female 5:07 AM DEPUTY SHERIFF CHIEF Gender Identity Not on file Sexual Orientation [...] on filedocumented in this encounter Care Teams Guide Travel Relationship Specialty Start Date End Date Mandeep Owens MD [address] [place] [address] PCP - General 04/26/06 documented as of this encounter
--- OUTSIDE RECORDS SUMMARY | 2025-01-07 15:08 | XMS_ITS | Encounter Summary ---
Author Organization [facility] Address [address] [place] [address] Care Team Providers Care Can Filler Name Role Phone Mandeep Owens MD Primary Care Provider Encounter Details Date Type Department Care Team (Late st Contact Info) Description 06/26/[address] [facility] Internal Medicine Medical [facility] [address] [place] [address] Mandeep Owens MD [address] [facility] [address] [place] [address] Social History Tobacco Use Types Packs/Day Years Used Date Smoking Tobacco: Never Assessed Comments Unknown Sex and Gender Information Value Date Recorded Sex Assigned at Not on file Legal Sex Female 5:07 AM SILK SCREEN OPERATOR Gender Identity Not on file Sexual Orientation Not on file documented as of this encounter Progress Notes * Mandeep Owens MD - 09/30/2007 11:42 AM CDT TIME:02:43 pm PATIENT`S HOME PHONE: PATIENT`S WORK PHONE: PATIENT`S INSURANCE: [employer] WHO TOOK THE CALL: Janiya Holm GENERAL INFORMATION ALTERNATIVE PHONE NUMBER: [phone] can lmor WHO CALLED: CURRENT ALLERGY LIST: [facility] NUMBER: [phone] PROBLEMS: HEADACHE: Patient complains of migraine headache. [...] on filedocumented in this encounter Care Teams Can Filler Relationship Specialty Start Date End Date Mandeep Owens MD [address] [place] [address] PCP - General 04/26/06 documented as of this encounter
--- OUTSIDE RECORDS SUMMARY | 2025-01-07 15:08 | XMS_ITS | Encounter Summary ---
Author Organization [employer] Address [address] [place] [address] Care Team Providers Care Television Maintenance Worker Name Role Phone Mandeep Owens MD Primary [...] on file Legal Sex Female 5:07 AM SNOWBLOWER MECHANIC Gender Identity Not on file Sexual Orientation [...] /HPF INTERFACE SYSTEM 10/12/2006 3:49 PM CDT [facility] URINE ORDERABLES Edited Performing Organization Address [facility] de Phone Number INTERFACE SYSTEM Refer to [...] and non- Americans is available on the [facility] Intranet at: [email or web address] Select: Lab Policies and Procedures Select: Reference Ranges - GFR 10/12/2006 3:16 PM CDT [facility] CHEMISTRY ORDERABLES Edited Performing Organization Address [facility] Co de Phone Number INTERFACE SYSTEM Refer to clinic/hospital department documented in this encounter Visit Diagnoses Diagnosis Migraine, unspecified, without mention of intractable migraine without mention of status migrainosus- Primary documented in this encounter Care Teams Television Maintenance Worker Relationship Specialty Start Date End Date Mandeep Owens MD [address] [place] [address] PCP - General 04/26/06 documented as of this encounter
--- OUTSIDE RECORDS SUMMARY | 2025-01-07 15:08 | XMS_ITS | Encounter Summary ---
Author Organization [facility] Address [address] [place] [address] Care Team Providers Care Pipelines Superintendent Name Role Phone Mandeep Owens MD Primary Care Provider Encounter Details Date Type Department Care Team (Late st Contact Info) Description 08/17/2007 Orders Only [facility] Internal Medicine Medical [facility] [address] [place] [address] Mandeep Owens MD [address] [facility] [address] [place] [address] Social History Tobacco Use Types Packs/Day Years Used Date Smoking Tobacco: Never Assessed Comments Unknown Sex and Gender Information Value Date Recorded Sex Assigned at Not on file Legal Sex Female 5:07 AM TOOL GRINDER OPERATOR Gender Identity Not on file Sexual Orientation Not on file documented as of this encounter Progress Notes * Mandeep Owens MD - 10/22/2007 8:16 PM CDT TIME:11:56 am PATIENT`S HOME PHONE: PATIENT`S WORK PHONE: PATIENT`S INSURANCE: [employer]UE SHIELD WHO TOOK THE CALL: Milad Garza R GENERAL INFORMATION ALTERNATIVE PHONE NUMBER: [phone] WHO CALLED: Patient`s spouse called. david CURRENT [...] a week from the ER [facility] at [facility]. It 1 tab qid for headaches and [...] on filedocumented in this encounter Care Teams Pipelines Superintendent Relationship Specialty Start Date End Date Mandeep Owens MD [address] [place] [address] PCP - General 04/26/06 documented as of this encounter
--- OUTSIDE RECORDS SUMMARY | 2025-01-07 15:08 | XMS_ITS | Encounter Summary ---
Author Organization [facility] Address [address] [place] [address] Care Team Providers Care Granulizing Machine Operator Name Role Phone Mandeep Owens MD Primary Care Provider Encounter Details Date Type Department Care Team (Late st Contact Info) Description 01/09/2004 Outpatient Historical [facility] Internal Medicine Medical [place] [facility] [address] [address] Mandeep Owens MD [address] [phone] Social History Tobacco Use Types Packs/Day Years Used Date Smoking Tobacco: Never Assessed Comments Unknown Sex and Gender Information Value Date Recorded Sex Assigned at Not on file Legal Sex Female 5:07 AM FRONT OFFICE ASSISTANT Gender Identity Not on file Sexual Orientation Not on file documented as of this encounter Plan of Treatment Not on file documented as of this encounter Visit Diagnoses Not on filedocumented in this encounter Care Teams Granulizing Machine Operator Relationship Specialty Start Date End Date Mandeep Owens MD [address] [place] [address] [address] [place] [address] PCP - General 04/26/06 documented as of this encounter
--- OUTSIDE RECORDS SUMMARY | 2025-01-07 15:08 | XMS_ITS | Encounter Summary ---
Author Organization [facility] Address [address] [place] [address] Care Team Providers Care Resident Service Coordinator Name Role Phone Mandeep Owens MD Primary Care Provider Encounter Details Date Type Department Care Team (Latest Contact Info) Description 05/16/2006 Outpatient Historical [facility] Internal Medicine Medical [facility] [address] [facility] [address] [facility] [place] [address] Mandeep Owens MD [address] [facility] [address] [place] [address] Olecranon Bursitis (Primary Dx) Social History Tobacco Use Types Packs/Day Years Used Date Smoking Tobacco: Never Assessed Comments Unknown Sex and Gender Information Value Date Recorded Sex Assigned at Not on file Legal Sex Female 5:07 AM PASTORAL MINISTRIES PROFESSOR Gender Identity Not on file Sexual Orientation Not on file documented as of this encounter Plan of Treatment Not on file documented as of this encounter Procedures Procedure Name Priority Date/Time Associated Diagnosis Comments SOURCE, FLUID Routine 05/16/2006 5:58 PM PASTORAL MINISTRIES PROFESSOR CELL COUNT WITH DIFFERENTIAL, BODY FLUID Routine 05/16/2006 5:58 PM PASTORAL MINISTRIES PROFESSOR documented in this encounter Results * SOURCE, FLUID (05/16/2006 5:58 PM PASTORAL MINISTRIES PROFESSOR) SOURCE FLUID Elbow, Left INTERFACE SYSTEM 05/16/2006 5:58 PM PASTORAL MINISTRIES PROFESSOR us Mandeep Owens MD HEMATOLOGY ORDERABLES Final Result INTERFACE SYSTEM Refer to clinic/hospital department * CELL COUNT WITH DIFFERENTIAL, BODY FLUID (05/16/2006 5:58 PM PASTORAL MINISTRIES PROFESSOR) WBC, FLD 8,623 /uL INTERFACE SYSTEM RBC, FLD 110,000 /uL INTERFACE SYSTEM NEUTROPHILS, FLD 55 % INTERFACE SYSTEM LYMPHOCYTE, FLD 13 % INTERFACE SYSTEM MACROPHAGE, FLD 30 % INTERFACE SYSTEM EOSINOPHIL, FLD 2 % INTERFACE SYSTEM CELLS COUNTED, FLD 100 WBC Counted INTERFACE SYSTEM 05/16/2006 5:58 PM PASTORAL MINISTRIES PROFESSOR us Mandeep Owens MD BODY FLUIDS AND STOOLS Ayesha l Result Performing Organization Address [facility] de Phone Number INTERFACE SYSTEM Refer to clinic/hospital department documented in this encounter Visit Diagnoses Diagnosis Olecranon bursitis- Primary documented in this encounter Care Teams Resident Service Coordinator Relationship Specialty Start Date End Date Mandeep Owens MD [address] [place] [address] PCP - General 04/26/06 documented as of this encounter
--- OUTSIDE RECORDS SUMMARY | 2025-01-07 15:08 | XMS_ITS | Encounter Summary ---
Author Organization [facility] Address [address] [place] [address] Care Team Providers Care Ribbon Cleaner Name Role Phone Mandeep Owens MD Primary Care Provider Encounter Details Date Type Department Care Team (Late st Contact Info) Description 03/24/2001 Outpatient Historical [facility] Internal Medicine Medical [place] [facility] [address] [address] Mandeep Owens MD [address] [phone] Social History Tobacco Use Types Packs/Day Years Used Date Smoking Tobacco: Never Assessed Comments Unknown Sex and Gender Information Value Date Recorded Sex Assigned at Not on file Legal Sex Female 5:07 AM INFORMATICS CONSULTANT Gender Identity Not on file Sexual Orientation Not on file documented as of this encounter Plan of Treatment Not on file documented as of this encounter Visit Diagnoses Not on filedocumented in this encounter Care Teams Ribbon Cleaner Relationship Specialty Start Date End Date Mandeep Owens MD [address] [place] [address] [address] [address] PCP - General 04/26/06 documented as of this encounter
--- OUTSIDE RECORDS SUMMARY | 2025-01-07 15:08 | XMS_ITS | Encounter Summary ---
Author Organization [facility] Address 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
--- OUTSIDE RECORDS SUMMARY | 2025-01-07 15:08 | XMS_ITS | Encounter Summary ---
Author Organization [facility] Address 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 [place], [place] [address] Admit Date: 09/02/2007 ERIK DWYER Sex: F Admit Prov: DOROTHY JONES Date: 1965 Primary Care Prov: MANDEEP OWENS CMRN: [id number] [id number] [facility] Ordering Prov: N/A Interpretation MR [...] Headache documented in this encounter Care Teams Acute Care Clinical Nurse Specialist Relationship Specialty Start Date End Date Mandeep Owens MD [address] [place] [address] PCP - General 04/26/06 documented as of this encounter
--- OUTSIDE RECORDS SUMMARY | 2025-01-07 15:08 | XMS_ITS | Encounter Summary ---
Author Organization [facility] Address 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 Gender Identity Not on file Sexual Orientation Not on file documented as of this encounter Plan of Treatment Not on file documented as of this encounter Procedures Procedure Name Priority Date/Time Associated Diagnosis Comments XR FOOT 3+ VW RIGHT Routine 05/07/2008 3 :25 PM TABLET MAKING MACHINE OPERATOR XR ANKLE 3+ VW RIGHT Routine 05/07/2008 3:25 PM TABLET MAKING MACHINE OPERATOR documented in this encounter Results * XR FOOT 3+ VW RIGHT (05/07/2008 3:25 PM TABLET MAKING MACHINE OPERATOR) Anatomical Region Laterality Modality Ankle / Foot Other 05/07/2008 3:25 PM TABLET MAKING MACHINE OPERATOR Narrative 05/07/2008 3:43 PM TABLET MAKING MACHINE OPERATOR [facility] [address], [place] [address] Admit Date: 05/07/2008 ERIK DWYER Sex: F Admit Prov: ER, AUTHORIZED P Date: 1965 Primary Care Prov: MANDEEP OWENS CMRN: [id number] [facility]: [id number] IMAGING SERVICES Ordering Prov: N/A Accession Number: [id number] Interpretation Right foot 3 views 05/07/08. Clinical History: Pain. Findings: There is no fracture, dislocation, abnormal bone production or destruction. There are plantar calcaneal spurs. The soft tissues are normal. Impression: Calcaneal spurs. . Dictated by: CAROLYN PARIKH 05/07/2008 15:40 Electronically signed by: CAROLYN PARIKH 05/07/2008 15:41 Procedure Note Carolyn Parikh MD - 05/07/2008 [facility] [address], [place] [address] Admit Date: 05/07/2008 ERIK DWYER Sex: F Admit Prov: ER, AUTHORIZED P Date: 1965 Primary Care Prov: MANDEEP OWENS CMRN: [id number] Room: [facility] SSN: [id number] IMAGING SERVICES Ordering Prov: N/A Interpretation Right [...] ANKLE 3+ VW RIGHT (05/07/2008 3:25 PM TABLET MAKING MACHINE OPERATOR) Anatomical Region Laterality Modality Ankle / Foot Other 05/07/2008 3:25 PM TABLET MAKING MACHINE OPERATOR Narrative 05/07/2008 3:42 PM TABLET MAKING MACHINE OPERATOR [place] [place] [address] Admit Date: 05/07/2008 ERIK DWYER Sex: F Admit Prov: ER, AUTHORIZED P Date: 1965 Primary Care Prov: MANDEEP OWENS CMRN: [id number] [facility] N: [id number] IMAGING SERVICES Ordering Prov: N/A Accession Number: [id number] Interpretation Right ankle 3 views 05/07/08. Clinical History: Pain. Findings: There is no fracture, dislocation, abnormal bone production or destruction. The ankle mortise is intact. Impression: Negative. . Dictated by: CAROLYN PARIKH 05/07/2008 15:40 Electronically signed by: CAROLYN PARIKH 05/07/2008 15:40 Procedure Note Carolyn Parikh MD - 05/07/2008 [place] [address] [place] [address] Admit Date: 05/07/2008 ERIK DWYER Sex: F Admit Prov: ER, AUTHORIZED P Date: 1965 Primary Care Prov: MANDEEP OWENS CMRN: [id number] [facility] N: [id number] IMAGING SERVICES Ordering Prov: N/A Interpretation Right [...] premises documented in this encounter Care Teams Textile Conversion Manager Relationship Specialty Start Date End Date Mandeep Owens MD [address] [place], [place] [address] [place] [address] PCP - General 04/26/06 documented as of this encounter
--- OUTSIDE RECORDS SUMMARY | 2025-01-07 15:08 | XMS_ITS | Clinical Summary ---
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 Gender Identity Not on file Sexual Orientation Not on file Occupation Industry Job Start Date Job End Date Not on file Not on file Not on file Not on file Last Filed Vital Signs Vital Sign Reading Time Taken Comments Blood Pressure 140/91 04/16/2014 12:44 AM SECTIONAL BELT MOLD ASSEMBLER Pulse 84 03/17/2014 1:56 PM CDT Temperature 37.2 C (98.9 F) 04/15/2014 9:53 PM SECTIONAL BELT MOLD ASSEMBLER Respiratory Rate 20 04/16/2014 12:44 AM SECTIONAL BELT MOLD ASSEMBLER Oxygen Saturation 98% 04/16/2014 12:44 AM SECTIONAL BELT MOLD ASSEMBLER Inhaled Oxygen Concentration - - Weight 85.7 kg (189 lb) 04/15/2014 9:53 PM SECTIONAL BELT MOLD ASSEMBLER Height 160 cm (5' 3) 04/15/2014 9:53 PM SECTIONAL BELT MOLD ASSEMBLER Body Mass Index 33.48 04/15/2014 9:53 PM SECTIONAL BELT MOLD ASSEMBLER Plan of Treatment Health Maintenance Due Date [...] BCBS BLUE ACCESS/TRUE BLUE PPO Care Teams Buck Swamper Relationship Specialty Start Date End Date Mandeep Owens MD [address] [place] [address] PCP - General 04/26/06
--- OUTSIDE RECORDS SUMMARY | 2025-01-07 15:08 | XMS_ITS | Encounter Summary ---
Author Organization [facility] Address [address] [place] [address] Care Team Providers Care Rehab Manager Name Role Phone Mandeep Owens MD Primary Care Provider Encounter Details Date Type Department Care Team (Late st Contact Info) Description 08/20/2007 Outpatient Historical [facility] Internal Medicine Medical [place] [facility] [address] [address] Mandeep Owens MD [address] [phone] Social History Tobacco Use Types Packs/Day Years Used Date Smoking Tobacco: Never Assessed Comments Unknown Sex and Gender Information Value Date Recorded Sex Assigned at Not on file 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
== END 2025-01-07 15:05 | disposition home or self-care (01) ==
LOC: ANHFOHIMG 15:06
PROVIDERS: PCP Family Medicine; Visit Provider Nurse Practitioner
DX: Z12.31 Encounter for screening mammogram for malignant neoplasm of breast (principal)
CPT/HCPCS: 77063; 77067